=== PATIENT | female | born 1960 | race Caucasian/White ===

== ENCOUNTER 2023-05-03 20:55 | Inpatient (IN) | payer MEDICARE, SELFPAY ==
[2023-05-03 21:39] VITALS: BP 161/60; PULSE 120; RESP 18; TEMP 36.2; O2SAT 97
[2023-05-03 22:04] VITALS: BMI 25.0
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
[2023-05-04 07:00] VITALS: BMI 25.6
[2023-05-04 09:47] VITALS: RESP 18
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
[2023-05-04] MEDS: OLANZapine 10 MG TABLET PO ×2 (14:20→20:15)
[2023-05-04 18:00] VITALS: BP 136/60; PULSE 78; RESP 18; TEMP 36.7; O2SAT 95
[2023-05-04] MEDS: Divalproex Sodium ER 500 MG TAB.ER.24H 1000 MG PO (20:15)
--- NOTE | 2023-05-05 03:15 | PC.NURSE ---
patient appears to be sleeping tonight. she has had 3 brief periods of being out of bed thus far tonight. patient remains confused and disorganized. the patient asked this copywriter does your vagina want my finger I said no because I like boys to which she said well what if my finger was a boy I again said no because I'm . with that the patient dropped the subject. later she apologized to this copywriter for asking me those questions. continue to monitor for safety, continue Plan of Care.
[2023-05-05] MEDS: OLANZapine 10 MG TABLET PO ×3 (09:15→21:31)
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
[2023-05-05 21:00] VITALS: PULSE 89; RESP 18; TEMP 36.4; O2SAT 94
[2023-05-05] MEDS: Divalproex Sodium ER 500 MG TAB.ER.24H 1000 MG PO (21:31)
[2023-05-06 07:40] VITALS: BP 120/57; PULSE 71; RESP 14; TEMP 36.2; O2SAT 95
[2023-05-06] MEDS: OLANZapine 10 MG TABLET PO ×2 (09:17→15:11)
--- NOTE | 2023-05-06 13:15 | P.PNPSI_ITS ---
Subjective Subjective Date of Service: 05/06/23 Reason For Visit: Schizoaffective Disorder Subjective Notes: Conditional Voluntary Interim History: The nursing staff reported the patient had been compliant with treatment. She was easily agitated and started screaming the group attend later on she was able to put it up together. On interview the patient was delusional, rambling disorganized at times. Mental Status Exam Mental Status Exam Patient Appearance: Appropriate Patient Orientation: Person Level of Consciousness: Alert Patient Behavior: Guarded and Cooperative Mood Description: Withdrawn Affect Description: Labile Patient Cognition Impaired: Yes Ability to Follow Directions: Fair Speech Pattern: Clear Hallucinations: Auditory Delusions: Paranoid Ideation and Ideas of Reference Thought Process: Racing, Illogical, Distracted and Slowed Thinking Thought Content: positive for Disoriented and positive for Thought Blocking Judgement: Poor Diagnostics Vital Signs (24Hr): Vital Signs - 24 hr 05/05/23 21:00 05/06/23 07:40 Temperature 97.6 F 97.2 F Pulse Rate 89 71 Respiratory Rate 18 14 Blood Pressure 120/57 L Pulse Oximetry 94 95 Oxygen Delivery Method Room Air BMI result Body Mass Index 25.6 Medications Medications Current Medications Acetaminophen (Acetaminophen 325 Mg Tablet) 650 mg PO Q6H PRN PRN Reason: Headache/Pain Mild Scale (1-3) Al Hydroxide/Mg Hydroxide (Magnesium Hydrox/Alum Hydrox 30 Ml Oral.Susp) 30 ml PO Q6H PRN PRN Reason: Heartburn/Nausea Divalproex Sodium (Divalproex Sodium Er 500 Mg Tab.Er.24h) 1,000 mg PO BEDTIME [facility] Last Admin: 05/05/23 21:31 Dose: 1,000 mg Magnesium Hydroxide (Milk Of Magnesia 30 Ml Oral.Susp) 30 ml PO DAILY PRN PRN Reason: Constipation Nicotine Polacrilex (Nicotine Polacrilex 2 Mg Gum) 4 mg BUCCAL Q2H PRN PRN Reason: Nicotine Cravings Olanzapine (Olanzapine 10 Mg Tablet) 10 mg PO TID [facility] Last Admin: 05/06/23 09:17 Dose: 10 mg Trazodone HCl (Trazodone Hcl 25 Mg Halftab) 25 mg PO BEDTIME MRX1 PRN PRN Reason: Insomnia Allergies Allergies Allergy/AdvReac Type Severity Reaction Status Date / Time Penicillins Allergy Unknown Unknown Verified 05/03/23 22:31 Assessment & Plan Assessment & Plan (1) Bipolar I disorder with nakia: Status: Acute Code(s): F31.10 - Bipolar disorder, current episode manic without psychotic features, unspecified Plan 05/04: continue zyprexa 10 TID. add VPA 1000 mg QHS. 05/05: continue current mgmt. per pt's brother, she is unable to return to her apartment and she has been off meds for about 3 years. 05/06 continue same treatment adding Zydis p.r.n. for agitation Reason for continued inpatient stay Substantial Risk for: inability to function, rapid decompensation and med/psych decompensation Time Spent With Patient Time: Total time managing care of this patient today __20__ minutes.
[2023-05-06 20:15] VITALS: BP 133/64; PULSE 118; RESP 18; TEMP 36.4; O2SAT 96
[2023-05-07 07:40] VITALS: BP 115/57; PULSE 75; RESP 16; TEMP 36.3; O2SAT 95
[2023-05-07] MEDS: OLANZapine 10 MG TABLET PO ×3 (08:14→23:59)
--- NOTE | 2023-05-07 13:46 | P.PNPSI_ITS ---
Subjective Subjective Date of Service: 05/07/23 Reason For Visit: Schizoaffective Disorder Subjective Notes: Conditional Voluntary Interim History: The nursing staff reported the patient had poor sleep last night she refused medications in the evening. She had been seen screaming at times but then later apologizing. The staff has noticed that she is very apraxic unable to do a cup of tea and needed redirection. On interview the patient denies new symptoms she states that she is doing better. Mental Status Exam Mental Status Exam Patient Appearance: Appropriate Patient Orientation: Person and Situation Level of Consciousness: Awake Patient Behavior: Guarded and Passive Mood Description: Withdrawn Affect Description: Constricted Patient Cognition Impaired: Yes Ability to Follow Directions: Good Speech Pattern: Clear Hallucinations: None Delusions: Paranoid Ideation and Ideas of Reference Thought Process: Distracted and Slowed Thinking Thought Content: positive for [place], positive for Loose Associations and positive for Thought Blocking Judgement: Poor Diagnostics Vital Signs (24Hr): Vital Signs - 24 hr 05/06/23 20:15 05/07/23 07:40 Temperature 97.5 F 97.3 F Pulse Rate 118 H 75 Respiratory Rate 18 16 Blood Pressure 133/64 115/57 L Pulse Oximetry 96 95 Oxygen Delivery Method Room Air Room Air BMI result Body Mass Index 25.6 Medications Medications Current Medications Acetaminophen (Acetaminophen 325 Mg Tablet) 650 mg PO Q6H PRN PRN Reason: Headache/Pain Mild Scale (1-3) Al Hydroxide/Mg Hydroxide (Magnesium Hydrox/Alum Hydrox 30 Ml Oral.Susp) 30 ml PO Q6H PRN PRN Reason: Heartburn/Nausea Divalproex Sodium (Divalproex Sodium Er 500 Mg Tab.Er.24h) 1,000 mg PO BEDTIME [facility] Last Admin: 05/06/23 23:28 Dose: Not Given Magnesium Hydroxide (Milk Of Magnesia 30 Ml Oral.Susp) 30 ml PO DAILY PRN PRN Reason: Constipation Nicotine Polacrilex (Nicotine Polacrilex 2 Mg Gum) 4 mg BUCCAL Q2H PRN PRN Reason: Nicotine Cravings Olanzapine (Olanzapine 10 Mg Tablet) 10 mg PO TID [facility] Last Admin: 05/07/23 08:14 Dose: 10 mg Olanzapine (Olanzapine Odt 10 Mg Tab.Rapdis) 10 mg TRANSLINGU BID PRN PRN Reason: agitation Trazodone HCl (Trazodone Hcl 25 Mg Halftab) 25 mg PO BEDTIME MRX1 PRN PRN Reason: Insomnia Allergies Allergies Allergy/AdvReac Type Severity Reaction Status Date / Time Penicillins Allergy Unknown Unknown Verified 05/03/23 22:31 Assessment & Plan Assessment & Plan (1) Bipolar I disorder with nakia: Status: Acute Code(s): F31.10 - Bipolar disorder, current episode manic without psychotic features, unspecified Plan 05/04: continue zyprexa 10 TID. add VPA 1000 mg QHS. 05/05: continue current mgmt. per pt's brother, she is unable to return to her apartment and she has been off meds for about 3 years. 05/06 continue same treatment adding Zydis p.r.n. for agitation. 05/07 continue same treatment Reason for continued inpatient stay Substantial Risk for: inability to function, rapid decompensation and med/psych decompensation Time Spent With Patient Time: Total time managing care of this patient today __20__ minutes.
[2023-05-07 21:03] VITALS: RESP 16
[2023-05-08] MEDS: Divalproex Sodium ER 500 MG TAB.ER.24H 1000 MG PO
[2023-05-08] MEDS: OLANZapine 10 MG TABLET PO ×2 (08:28→15:51)
[2023-05-08 08:29] VITALS: BP 128/61; PULSE 102; RESP 18; TEMP 36.7; O2SAT 95
--- NOTE | 2023-05-08 11:57 | HO.PSYCHPN ---
Subjective Subjective Date of Service: 05/08/23 Reason For Visit: Schizoaffective Disorder Subjective Notes: Conditional Voluntary Interim History: Reviewed with . Guarded, brief. Pt stated, I'm okay. I don't need anything. I'm trying to sleep . denies SI. Medication Compliance: Yes Attending Groups: No Review of Systems Constitutional: Reports as per HPI Eyes: Reports as per HPI Reports as per HPI Cardiovascular: Reports as per HPI Respiratory: Reports as per HPI Gastrointestinal: Reports as per HPI Genitourinary: Reports as per HPI Musculoskeletal: Reports as per HPI Skin/Breast: Reports as per HPI Reports as per HPI Psychiatric: Reports as per HPI Endocrine: Reports as per HPI Hematologic/Lymphatic: Reports as per HPI Allergic/Immunologic: Reports as per HPI Mental Status Exam Mental Status Exam Narrative: Pt behavior is guarded and calm; dressed in casual attire; mood is described as okay ; Speech is normal rate, volume and not pressured; thought process is organized; denies any SI. Diagnostics Vital Signs (24Hr): Vital Signs - 24 hr 05/07/23 21:03 05/08/23 08:29 Temperature 98.0 F Pulse Rate 102 H Respiratory Rate 16 18 Blood Pressure 128/61 Pulse Oximetry 95 Oxygen Delivery Method Room Air BMI result Body Mass Index 25.6 Medications Medications Current Medications Acetaminophen (Acetaminophen 325 Mg Tablet) 650 mg PO Q6H PRN PRN Reason: Headache/Pain Mild Scale (1-3) Al Hydroxide/Mg Hydroxide (Magnesium Hydrox/Alum Hydrox 30 Ml Oral.Susp) 30 ml PO Q6H PRN PRN Reason: Heartburn/Nausea Divalproex Sodium (Divalproex Sodium Er 500 Mg Tab.Er.24h) 1,000 mg PO BEDTIME [facility] Last Admin: 05/08/23 00:00 Dose: 1,000 mg Magnesium Hydroxide (Milk Of Magnesia 30 Ml Oral.Susp) 30 ml PO DAILY PRN PRN Reason: Constipation Nicotine Polacrilex (Nicotine Polacrilex 2 Mg Gum) 4 mg BUCCAL Q2H PRN PRN Reason: Nicotine Cravings Olanzapine (Olanzapine 10 Mg Tablet) 10 mg PO TID [facility] Last Admin: 05/08/23 08:28 Dose: 10 mg Olanzapine (Olanzapine Odt 10 Mg Tab.Rapdis) 10 mg TRANSLINGU BID PRN PRN Reason: agitation Trazodone HCl (Trazodone Hcl 25 Mg Halftab) 25 mg PO BEDTIME MRX1 PRN PRN Reason: Insomnia Allergies Allergies Allergy/AdvReac Type Severity Reaction Status Date / Time Penicillins Allergy Unknown Unknown Verified 05/03/23 22:31 Assessment & Plan Assessment & Plan (1) Bipolar I disorder with nakia: Status: Acute Code(s): F31.10 - Bipolar disorder, current episode manic without psychotic features, unspecified Plan 05/04: continue zyprexa 10 TID. add VPA 1000 mg QHS. 05/05: continue current mgmt. per pt's brother, she is unable to return to her apartment and she has been off meds for about 3 years. 05/06 continue same treatment adding Zydis p.r.n. for agitation. 05/07 continue same treatment 05/08: Guarded, brief. Pt stated, I'm okay. I don't need anything. I'm trying to sleep . denies SI. Continue current tx plan. Patient educated on: medication risk/benefits Informed Consent: understands Reason for continued inpatient stay Substantial Risk for: med/psych decompensation Time Spent With Patient Time: Total time managing care of this patient today _15___ minutes.
[2023-05-08 22:40] VITALS: RESP 16
[2023-05-09] MEDS: OLANZapine 10 MG TABLET PO ×4 (00:07→20:49)
[2023-05-09] MEDS: Divalproex Sodium ER 500 MG TAB.ER.24H 1000 MG PO ×2 (00:07→20:49)
[2023-05-09] MEDS: traZODone HCL 25 MG HALFTAB PO (00:07)
[2023-05-09 09:01] VITALS: RESP 18
--- NOTE | 2023-05-09 13:31 | HO.PSYCHPN ---
Subjective Subjective Date of Service: 05/09/23 Reason For Visit: Schizoaffective Disorder Subjective Notes: Conditional Voluntary Interim History: Reviewed with . Guarded, irritable. Keeping to self. Pt kept 1:1 brief. Met with pt in unit office. Pt reports feeling fine today; pt stated, I'm fine. I'm feeling better. Why do I have to stay here? . When T/W attempted to discuss the process of being discharged pt stated, Never mind. I don't want to talk to you bitch! , then got up and left office. Medication Compliance: Yes Attending Groups: No Review of Systems Constitutional: Reports as per HPI Eyes: Reports as per HPI Reports as per HPI Cardiovascular: Reports as per HPI Respiratory: Reports as per HPI Gastrointestinal: Reports as per HPI Genitourinary: Reports as per HPI Musculoskeletal: Reports as per HPI Skin/Breast: Reports as per HPI Reports as per HPI Psychiatric: Reports as per HPI Endocrine: Reports as per HPI Hematologic/Lymphatic: Reports as per HPI Allergic/Immunologic: Reports as per HPI Mental Status Exam Mental Status Exam Narrative: Pt is behavior is irritable, guarded; dressed in casual attire; mood is described as fine ; eye contact appropriate; Speech is normal rate, volume and prosody and not pressured. Diagnostics Vital Signs (24Hr): Vital Signs - 24 hr 05/08/23 22:40 05/09/23 09:01 Respiratory Rate 16 18 BMI result Body Mass Index 25.6 Medications Medications Current Medications Acetaminophen (Acetaminophen 325 Mg Tablet) 650 mg PO Q6H PRN PRN Reason: Headache/Pain Mild Scale (1-3) Al Hydroxide/Mg Hydroxide (Magnesium Hydrox/Alum Hydrox 30 Ml Oral.Susp) 30 ml PO Q6H PRN PRN Reason: Heartburn/Nausea Divalproex Sodium (Divalproex Sodium Er 500 Mg Tab.Er.24h) 1,000 mg PO BEDTIME [facility] Last Admin: 05/09/23 00:07 Dose: 1,000 mg Magnesium Hydroxide (Milk Of Magnesia 30 Ml Oral.Susp) 30 ml PO DAILY PRN PRN Reason: Constipation Nicotine Polacrilex (Nicotine Polacrilex 2 Mg Gum) 4 mg BUCCAL Q2H PRN PRN Reason: Nicotine Cravings Olanzapine (Olanzapine 10 Mg Tablet) 10 mg PO TID [facility] Last Admin: 05/09/23 08:46 Dose: 10 mg Olanzapine (Olanzapine Odt 10 Mg Tab.Rapdis) 10 mg TRANSLINGU BID PRN PRN Reason: agitation Trazodone HCl (Trazodone Hcl 25 Mg Halftab) 25 mg PO BEDTIME MRX1 PRN PRN Reason: Insomnia Last Admin: 05/09/23 00:07 Dose: 25 mg Allergies Allergies Allergy/AdvReac Type Severity Reaction Status Date / Time Penicillins Allergy Unknown Unknown Verified 05/03/23 22:31 Assessment & Plan Assessment & Plan (1) Bipolar I disorder with nakia: Status: Acute Code(s): F31.10 - Bipolar disorder, current episode manic without psychotic features, unspecified Plan 05/04: continue zyprexa 10 TID. add VPA 1000 mg QHS. 05/05: continue current mgmt. per pt's brother, she is unable to return to her apartment and she has been off meds for about 3 years. 05/06 continue same treatment adding Zydis p.r.n. for agitation. 05/07 continue same treatment 05/08: Guarded, brief. Pt stated, I'm okay. I don't need anything. I'm trying to sleep . denies SI. Continue current tx plan. 05/09: Continue current tx plan. Patient educated on: diagnosis and medication risk/benefits Informed Consent: understands and further education needed Reason for continued inpatient stay Substantial Risk for: med/psych decompensation Time Spent With Patient Time: Total time managing care of this patient today _15___ minutes.
[2023-05-09 21:00] VITALS: RESP 16
[2023-05-10] MEDS: OLANZapine 10 MG TABLET PO ×3 (09:26→20:36)
--- NOTE | 2023-05-10 16:15 | HO.PSYCHPN ---
Subjective Subjective Date of Service: 05/10/23 Reason For Visit: Schizoaffective Disorder Interim History: irritable, labile, easily overwhelmed and frustrated. paranoid delusions about her brother moisés's meddling and power/wealth to affect her life. states she doesn't want him involved at all. informed of plan to check labs tonight. Mental Status Exam Mental Status Exam Narrative: adequately dressed in street clothes. adequately groomed. cooperative. no PMA/PMR. speech nml rate and loudness, amount. thoughts more organized, but delusional. affect flexible, hyper-intense, mod-labile. no SI/HI/AVH expressed. Diagnostics Vital Signs (24Hr): Vital Signs - 24 hr 05/09/23 21:00 Respiratory Rate 16 BMI result Body Mass Index 25.6 Medications Medications Current Medications Acetaminophen (Acetaminophen 325 Mg Tablet) 650 mg PO Q6H PRN PRN Reason: Headache/Pain Mild Scale (1-3) Al Hydroxide/Mg Hydroxide (Magnesium Hydrox/Alum Hydrox 30 Ml Oral.Susp) 30 ml PO Q6H PRN PRN Reason: Heartburn/Nausea Divalproex Sodium (Divalproex Sodium Er 500 Mg Tab.Er.24h) 1,000 mg PO BEDTIME [facility] Last Admin: 05/09/23 20:49 Dose: 1,000 mg Magnesium Hydroxide (Milk Of Magnesia 30 Ml Oral.Susp) 30 ml PO DAILY PRN PRN Reason: Constipation Nicotine Polacrilex (Nicotine Polacrilex 2 Mg Gum) 4 mg BUCCAL Q2H PRN PRN Reason: Nicotine Cravings Olanzapine (Olanzapine 10 Mg Tablet) 10 mg PO TID [facility] Last Admin: 05/10/23 15:20 Dose: 10 mg Olanzapine (Olanzapine Odt 10 Mg Tab.Rapdis) 10 mg TRANSLINGU BID PRN PRN Reason: agitation Psyllium Hydrophilic Mucilloid (Psyllium Seed 3.7 Gm Packet) 3.7 gm PO BEDTIME [facility] Trazodone HCl (Trazodone Hcl 25 Mg Halftab) 25 mg PO BEDTIME MRX1 PRN PRN Reason: Insomnia Last Admin: 05/09/23 00:07 Dose: 25 mg Allergies Allergies Allergy/AdvReac Type Severity Reaction Status Date / Time Penicillins Allergy Unknown Unknown Verified 05/03/23 22:31 Assessment & Plan Assessment & Plan (1) Bipolar I disorder with nakia: Status: Acute Code(s): F31.10 - Bipolar disorder, current episode manic without psychotic features, unspecified Plan 05/04: continue zyprexa 10 TID. add VPA 1000 mg QHS. 05/05: continue current mgmt. per pt's brother, she is unable to return to her apartment and she has been off meds for about 3 years. 05/06 continue same treatment adding Zydis p.r.n. for agitation. 05/07 continue same treatment 05/08: Guarded, brief. Pt stated, I'm okay. I don't need anything. I'm trying to sleep . denies SI. Continue current tx plan. 05/09: Continue current tx plan. 05/10: less manic than at admission, remains psychotic. check VPA level and labs tonight. Reason for continued inpatient stay Substantial Risk for: inability to function and rapid decompensation Time Spent With Patient Time: Total time managing care of this patient today __35__ minutes.
[2023-05-10] MEDS: Psyllium seed 3.7 GM PACKET PO (20:36)
--- NOTE | 2023-05-10 20:41 | PC.NURSE ---
Nani refused to do bloodwork today. Patient reported I don't give blood, it is against my rastafarian . Patient stated that because she will need to do bloodwork, she will no longer be taking the Depakote medication.
[2023-05-11 07:00] VITALS: BMI 26.5
[2023-05-11] MEDS: OLANZapine 10 MG TABLET PO ×3 (08:56→20:56)
[2023-05-11] MEDS: Divalproex Sodium ER 500 MG TAB.ER.24H 1000 MG PO ×2 (12:23→20:56)
--- NOTE | 2023-05-11 16:21 | HO.PSYCHPN ---
Subjective Subjective Date of Service: 05/11/23 Reason For Visit: Schizoaffective Disorder Interim History: concerned about 'relationships. concerned about her older brother. also, these people that i got involved with in [place] are scary. marlee sebastian. discuss need for mood stabilizer and attendant blood work. pt states she will take VPA, so ordered for now. will plan to draw labs tomorrow night. Mental Status Exam Mental Status Exam Narrative: adequately dressed in street clothes. adequately groomed. cooperative. no PMA/PMR. speech nml rate and loudness, amount. thoughts more organized, but delusional. affect flexible, hyper-intense, non-labile. no SI/HI/AVH expressed. Diagnostics Vital Signs (24Hr): BMI result Body Mass Index 26.5 Medications Medications Current Medications Acetaminophen (Acetaminophen 325 Mg Tablet) 650 mg PO Q6H PRN PRN Reason: Headache/Pain Mild Scale (1-3) Al Hydroxide/Mg Hydroxide (Magnesium Hydrox/Alum Hydrox 30 Ml Oral.Susp) 30 ml PO Q6H PRN PRN Reason: Heartburn/Nausea Divalproex Sodium (Divalproex Sodium Er 500 Mg Tab.Er.24h) 1,000 mg PO BEDTIME [facility] Last Admin: 05/10/23 20:37 Dose: Not Given Magnesium Hydroxide (Milk Of Magnesia 30 Ml Oral.Susp) 30 ml PO DAILY PRN PRN Reason: Constipation Nicotine Polacrilex (Nicotine Polacrilex 2 Mg Gum) 4 mg BUCCAL Q2H PRN PRN Reason: Nicotine Cravings Olanzapine (Olanzapine 10 Mg Tablet) 10 mg PO TID [facility] Last Admin: 05/11/23 16:00 Dose: 10 mg Olanzapine (Olanzapine Odt 10 Mg Tab.Rapdis) 10 mg TRANSLINGU BID PRN PRN Reason: agitation Psyllium Hydrophilic Mucilloid (Psyllium Seed 3.7 Gm Packet) 3.7 gm PO BEDTIME [facility] Last Admin: 05/10/23 20:36 Dose: 3.7 gm Senna (Sennosides 8.6 Mg Tablet) 17.2 mg PO Q24H PRN PRN Reason: constipation Trazodone HCl (Trazodone Hcl 25 Mg Halftab) 25 mg PO BEDTIME MRX1 PRN PRN Reason: Insomnia Last Admin: 05/09/23 00:07 Dose: 25 mg Allergies Allergies Allergy/AdvReac Type Severity Reaction Status Date / Time Penicillins Allergy Unknown Unknown Verified 05/03/23 22:31 Assessment & Plan Assessment & Plan (1) Bipolar I disorder with nakia: Status: Acute Code(s): F31.10 - Bipolar disorder, current episode manic without psychotic features, unspecified Plan 05/04: continue zyprexa 10 TID. add VPA 1000 mg QHS. 05/05: continue current mgmt. per pt's brother, she is unable to return to her apartment and she has been off meds for about 3 years. 05/06 continue same treatment adding Zydis p.r.n. for agitation. 05/07 continue same treatment 05/08: Guarded, brief. Pt stated, I'm okay. I don't need anything. I'm trying to sleep . denies SI. Continue current tx plan. 05/09: Continue current tx plan. 05/10: less manic than at admission, remains psychotic. check VPA level and labs tonight. 05/11: pt refused labs last night and also VPA. today states she will take meds after the importance is explained to her. seems desirous of discharge. remains delusional, less labile. Reason for continued inpatient stay Substantial Risk for: inability to function and rapid decompensation Time Spent With Patient Time: Total time managing care of this patient today __25__ minutes.
[2023-05-11 19:50] VITALS: RESP 18
[2023-05-11] MEDS: Psyllium seed 3.7 GM PACKET PO (20:56)
[2023-05-12 06:00] VITALS: BP 127/61; PULSE 99; RESP 16; TEMP 36.1; O2SAT 96
[2023-05-12] MEDS: OLANZapine 10 MG TABLET PO ×2 (09:15→16:14)
[2023-05-12] MEDS: Milk of Magnesia 30 ML ORAL.SUSP PO (10:37)
[2023-05-12] MEDS: bisacodyL 10 MG SUPP.RECT PR (11:33)
--- NOTE | 2023-05-12 13:08 | HO.PSYCHPN ---
Subjective Subjective Date of Service: 05/12/23 Reason For Visit: Schizoaffective Disorder Interim History: appears more tired, irritable today. not forthcoming, perhaps disorganized. reminded to allow labs tonight. excuses herself from meeting. per staff, perseverating on bowel function today, asking for suppositories. not attending groups, anxiety 8. labile, intermittently confused. taking meds. broken sleep, about 5 hours. Mental Status Exam Mental Status Exam Narrative: adequately dressed in street clothes. disheveled. reluctantly cooperative. no PMA/PMR. speech nml rate and loudness, decr amount. paucity of thought versus paranoia or disorganization. affect constricted, hypo-intense, non-labile. no SI/HI/AVH expressed. Diagnostics Vital Signs (24Hr): Vital Signs - 24 hr 05/11/23 19:50 05/12/23 06:00 Temperature 97.0 F Pulse Rate 99 Respiratory Rate 18 16 Blood Pressure 127/61 Pulse Oximetry 96 Oxygen Delivery Method Room Air BMI result Body Mass Index 26.5 Medications Medications Current Medications Acetaminophen (Acetaminophen 325 Mg Tablet) 650 mg PO Q6H PRN PRN Reason: Headache/Pain Mild Scale (1-3) Al Hydroxide/Mg Hydroxide (Magnesium Hydrox/Alum Hydrox 30 Ml Oral.Susp) 30 ml PO Q6H PRN PRN Reason: Heartburn/Nausea Divalproex Sodium (Divalproex Sodium Er 500 Mg Tab.Er.24h) 1,000 mg PO BEDTIME [facility] Last Admin: 05/11/23 20:56 Dose: 1,000 mg Magnesium Hydroxide (Milk Of Magnesia 30 Ml Oral.Susp) 30 ml PO DAILY PRN PRN Reason: Constipation Last Admin: 05/12/23 10:37 Dose: 30 ml Nicotine Polacrilex (Nicotine Polacrilex 2 Mg Gum) 4 mg BUCCAL Q2H PRN PRN Reason: Nicotine Cravings Olanzapine (Olanzapine 10 Mg Tablet) 10 mg PO TID [facility] Last Admin: 05/12/23 09:15 Dose: 10 mg Olanzapine (Olanzapine Odt 10 Mg Tab.Rapdis) 10 mg TRANSLINGU BID PRN PRN Reason: agitation Psyllium Hydrophilic Mucilloid (Psyllium Seed 3.7 Gm Packet) 3.7 gm PO BEDTIME [facility] Last Admin: 05/11/23 20:56 Dose: 3.7 gm Senna (Sennosides 8.6 Mg Tablet) 17.2 mg PO Q24H PRN PRN Reason: constipation Senna (Senna [place] Extract Oral Syrup 15 Ml Syrup) 15 ml PO BEDTIME PRN PRN Reason: constipation Trazodone HCl (Trazodone Hcl 25 Mg Halftab) 25 mg PO BEDTIME MRX1 PRN PRN Reason: Insomnia Last Admin: 05/09/23 00:07 Dose: 25 mg Allergies Allergies Allergy/AdvReac Type Severity Reaction Status Date / Time Penicillins Allergy Unknown Unknown Verified 05/03/23 22:31 Assessment & Plan Assessment & Plan (1) Bipolar I disorder with nakia: Status: Acute Code(s): F31.10 - Bipolar disorder, current episode manic without psychotic features, unspecified Plan 05/04: continue zyprexa 10 TID. add VPA 1000 mg QHS. 05/05: continue current mgmt. per pt's brother, she is unable to return to her apartment and she has been off meds for about 3 years. 05/06 continue same treatment adding Zydis p.r.n. for agitation. 05/07 continue same treatment 05/08: Guarded, brief. Pt stated, I'm okay. I don't need anything. I'm trying to sleep . denies SI. Continue current tx plan. 05/09: Continue current tx plan. 05/10: less manic than at admission, remains psychotic. check VPA level and labs tonight. 05/11: pt refused labs last night and also VPA. today states she will take meds after the importance is explained to her. seems desirous of discharge. remains delusional, less labile. 05/12: check labs tonight. concern pt is developing a delirium, ammonia level would be helpful. poorer hygiene, more withdrawn, dearth of thoughts. T/C use of tegretol versus lithium if ammonia level proves elevated. Reason for continued inpatient stay Substantial Risk for: inability to function and rapid decompensation Time Spent With Patient Time: Total time managing care of this patient today __25__ minutes.
[2023-05-12 19:59] VITALS: RESP 18
--- NOTE | 2023-05-13 01:31 | PC.NURSE ---
Pt again refused labs this evening to rule out increasing confusion, delirium. Pt was in her room, when this RN approached her to ask about her taking her night meds. Pt stood up and walked off her bed and out of the room stating, I'm not taking any of these medications and you're not taking any bloodwork from me ! manager call center doctor MATTHEW was notified.
[2023-05-13] MEDS: OLANZapine ODT 10 MG TAB.RAPDIS TRANSLINGU (04:59)
[2023-05-13 08:20] VITALS: BP 120/77; PULSE 98; RESP 18; TEMP 36.2; O2SAT 96
[2023-05-13] MEDS: OLANZapine 10 MG TABLET PO ×2 (08:45→15:09)
--- NOTE | 2023-05-13 12:07 | P.PNPSI_ITS ---
Subjective Subjective Date of Service: 05/13/23 Reason For Visit: Schizoaffective Disorder Subjective Notes: Conditional Voluntary Interim History: Pt slept all night. She denies SI/HI. She reports she awaiting her to return call so she can return back. She is visible on the unit social with select peers. No behavioral concerns. no overt delusional content noted or reported. Review of Systems Review of Systems refused Constitutional: Reports as per HPI Eyes: Reports as per HPI Reports as per HPI Cardiovascular: Reports as per HPI Respiratory: Reports as per HPI Gastrointestinal: Reports as per HPI Musculoskeletal: Reports as per HPI Skin/Breast: Reports as per HPI Reports as per HPI Psychiatric: Reports as per HPI Endocrine: Reports as per HPI Hematologic/Lymphatic: Reports as per HPI Allergic/Immunologic: Reports as per HPI Mental Status Exam Mental Status Exam Narrative: adequately dressed in street clothes. disheveled. reluctantly cooperative. no PMA/PMR. speech nml rate and loudness, decr amount. paucity of thought versus paranoia or disorganization. affect constricted, hypo-intense, non-labile. no SI/HI/AVH expressed. Diagnostics Vital Signs (24Hr): Vital Signs - 24 hr 05/12/23 19:59 05/13/23 08:20 Temperature 97.2 F Pulse Rate 98 Respiratory Rate 18 18 Blood Pressure 120/77 Pulse Oximetry 96 Oxygen Delivery Method Room Air BMI result Body Mass Index 26.5 Medications Medications Current Medications Acetaminophen (Acetaminophen 325 Mg Tablet) 650 mg PO Q6H PRN PRN Reason: Headache/Pain Mild Scale (1-3) Al Hydroxide/Mg Hydroxide (Magnesium Hydrox/Alum Hydrox 30 Ml Oral.Susp) 30 ml PO Q6H PRN PRN Reason: Heartburn/Nausea Divalproex Sodium (Divalproex Sodium Er 500 Mg Tab.Er.24h) 1,000 mg PO BEDTIME [facility] Last Admin: 05/12/23 22:27 Dose: Not Given Magnesium Hydroxide (Milk Of Magnesia 30 Ml Oral.Susp) 30 ml PO DAILY PRN PRN Reason: Constipation Last Admin: 05/12/23 10:37 Dose: 30 ml Nicotine Polacrilex (Nicotine Polacrilex 2 Mg Gum) 4 mg BUCCAL Q2H PRN PRN Reason: Nicotine Cravings Olanzapine (Olanzapine 10 Mg Tablet) 10 mg PO TID [facility] Last Admin: 05/13/23 08:45 Dose: 10 mg Olanzapine (Olanzapine Odt 10 Mg Tab.Rapdis) 10 mg TRANSLINGU BID PRN PRN Reason: agitation Last Admin: 05/13/23 04:59 Dose: 10 mg Psyllium Hydrophilic Mucilloid (Psyllium Seed 3.7 Gm Packet) 3.7 gm PO BEDTIME [facility] Last Admin: 05/12/23 22:28 Dose: Not Given Senna (Sennosides 8.6 Mg Tablet) 17.2 mg PO Q24H PRN PRN Reason: constipation Senna (Senna [place] Extract Oral Syrup 15 Ml Syrup) 15 ml PO BEDTIME PRN PRN Reason: constipation Trazodone HCl (Trazodone Hcl 25 Mg Halftab) 25 mg PO BEDTIME MRX1 PRN PRN Reason: Insomnia Last Admin: 05/09/23 00:07 Dose: 25 mg Allergies Allergies Allergy/AdvReac Type Severity Reaction Status Date / Time Penicillins Allergy Unknown Unknown Verified 05/03/23 22:31 Assessment & Plan Assessment & Plan (1) Bipolar I disorder with nakia: Status: Acute Code(s): F31.10 - Bipolar disorder, current episode manic without psychotic features, unspecified Plan 05/04: continue zyprexa 10 TID. add VPA 1000 mg QHS. 05/05: continue current mgmt. per pt's brother, she is unable to return to her apartment and she has been off meds for about 3 years. 05/06 continue same treatment adding Zydis p.r.n. for agitation. 05/07 continue same treatment 05/08: Guarded, brief. Pt stated, I'm okay. I don't need anything. I'm trying to sleep . denies SI. Continue current tx plan. 05/09: Continue current tx plan. 05/10: less manic than at admission, remains psychotic. check VPA level and labs tonight. 05/11: pt refused labs last night and also VPA. today states she will take meds after the importance is explained to her. seems desirous of discharge. remains delusional, less labile. 05/12: check labs tonight. concern pt is developing a delirium, ammonia level would be helpful. poorer hygiene, more withdrawn, dearth of thoughts. T/C use of tegretol versus lithium if ammonia level proves elevated. 05/13 continue tx. Reason for continued inpatient stay Substantial Risk for: inability to function Time Spent With Patient Time: Total time managing care of this patient today ____ minutes.
[2023-05-13 18:00] VITALS: RESP 20
[2023-05-14] MEDS: OLANZapine 10 MG TABLET PO ×2 (08:42→15:24)
[2023-05-14] MEDS: Sennosides 8.6 MG TABLET 17.2 MG PO (09:39)
--- NOTE | 2023-05-14 14:32 | HO.PSYCHPN ---
Subjective Subjective Date of Service: 05/14/23 Reason For Visit: Schizoaffective Disorder Subjective Notes: Conditional Voluntary Interim History: Pt slept all night. She continues to denied SI/HI. She reports she awaiting her to return call so she can return back. She is visible on the unit social with select peers. No behavioral concerns. no overt delusional content noted or reported. Medication Compliance: Yes Review of Systems Review of Systems refused Constitutional: Reports as per HPI Eyes: Reports as per HPI Reports as per HPI Cardiovascular: Reports as per HPI Respiratory: Reports as per HPI Gastrointestinal: Reports as per HPI Musculoskeletal: Reports as per HPI Skin/Breast: Reports as per HPI Reports as per HPI Psychiatric: Reports as per HPI Endocrine: Reports as per HPI Hematologic/Lymphatic: Reports as per HPI Allergic/Immunologic: Reports as per HPI Mental Status Exam Mental Status Exam Narrative: adequately dressed in street clothes. disheveled. reluctantly cooperative. no PMA/PMR. speech nml rate and loudness, decr amount. paucity of thought versus paranoia or disorganization. affect constricted, hypo-intense, non-labile. no SI/HI/AVH expressed. Diagnostics Vital Signs (24Hr): Vital Signs - 24 hr 05/13/23 18:00 Respiratory Rate 20 BMI result Body Mass Index 26.5 Medications Medications Current Medications Acetaminophen (Acetaminophen 325 Mg Tablet) 650 mg PO Q6H PRN PRN Reason: Headache/Pain Mild Scale (1-3) Al Hydroxide/Mg Hydroxide (Magnesium Hydrox/Alum Hydrox 30 Ml Oral.Susp) 30 ml PO Q6H PRN PRN Reason: Heartburn/Nausea Divalproex Sodium (Divalproex Sodium Er 500 Mg Tab.Er.24h) 1,000 mg PO BEDTIME [facility] Last Admin: 05/13/23 22:21 Dose: Not Given Magnesium Hydroxide (Milk Of Magnesia 30 Ml Oral.Susp) 30 ml PO DAILY PRN PRN Reason: Constipation Last Admin: 05/12/23 10:37 Dose: 30 ml Nicotine Polacrilex (Nicotine Polacrilex 2 Mg Gum) 4 mg BUCCAL Q2H PRN PRN Reason: Nicotine Cravings Olanzapine (Olanzapine 10 Mg Tablet) 10 mg PO TID [facility] Last Admin: 05/14/23 08:42 Dose: 10 mg Olanzapine (Olanzapine Odt 10 Mg Tab.Rapdis) 10 mg TRANSLINGU BID PRN PRN Reason: agitation Last Admin: 05/13/23 04:59 Dose: 10 mg Psyllium Hydrophilic Mucilloid (Psyllium Seed 3.7 Gm Packet) 3.7 gm PO BEDTIME [facility] Last Admin: 05/13/23 22:21 Dose: Not Given Senna (Sennosides 8.6 Mg Tablet) 17.2 mg PO Q24H PRN PRN Reason: constipation Last Admin: 05/14/23 09:39 Dose: 17.2 mg Senna (Senna [place] Extract Oral Syrup 15 Ml Syrup) 15 ml PO BEDTIME PRN PRN Reason: constipation Trazodone HCl (Trazodone Hcl 25 Mg Halftab) 25 mg PO BEDTIME MRX1 PRN PRN Reason: Insomnia Last Admin: 05/09/23 00:07 Dose: 25 mg Allergies Allergies Allergy/AdvReac Type Severity Reaction Status Date / Time Penicillins Allergy Unknown Unknown Verified 05/03/23 22:31 Assessment & Plan Assessment & Plan (1) Bipolar I disorder with nakia: Status: Acute Code(s): F31.10 - Bipolar disorder, current episode manic without psychotic features, unspecified Plan 05/04: continue zyprexa 10 TID. add VPA 1000 mg QHS. 05/05: continue current mgmt. per pt's brother, she is unable to return to her apartment and she has been off meds for about 3 years. 05/06 continue same treatment adding Zydis p.r.n. for agitation. 05/07 continue same treatment 05/08: Guarded, brief. Pt stated, I'm okay. I don't need anything. I'm trying to sleep . denies SI. Continue current tx plan. 05/09: Continue current tx plan. 05/10: less manic than at admission, remains psychotic. check VPA level and labs tonight. 05/11: pt refused labs last night and also VPA. today states she will take meds after the importance is explained to her. seems desirous of discharge. remains delusional, less labile. 05/12: check labs tonight. concern pt is developing a delirium, ammonia level would be helpful. poorer hygiene, more withdrawn, dearth of thoughts. T/C use of tegretol versus lithium if ammonia level proves elevated. 05/13 continue tx. 05/14 continue tx. Reason for continued inpatient stay Substantial Risk for: inability to function Time Spent With Patient Time: Total time managing care of this patient today ____ minutes.
[2023-05-15] MEDS: OLANZapine 10 MG TABLET PO ×3 (08:22→20:58)
[2023-05-15 08:45] VITALS: BP 121/74; PULSE 88; RESP 16; TEMP 35.7; O2SAT 97
[2023-05-15] MEDS: Sennosides 8.6 MG TABLET 17.2 MG PO (12:36)
--- NOTE | 2023-05-15 14:39 | HO.PSYCHPN ---
Subjective Subjective Date of Service: 05/15/23 Reason For Visit: Schizoaffective Disorder Interim History: lying in bed, doesn't come out for interview. childish affect, eyes darting around room, little eye contact with MD. states she does not wish to speak with MD without her mother present. essentially refuses to speak with MD after. MD notes her refusal to take VPA, suggests she try lithium, indicates it will be prescribed and she is encouraged to take it. per staff, not attending groups. asking about discharge. intrusive with peers, rude to roommate. labile. refusing HS meds. has not had VPA since last . per staff services manager, pt's orientation and confusion appear to have improved since stop of VPA. Mental Status Exam Mental Status Exam Narrative: adequately dressed in street clothes. disheveled. not cooperative. PMA or fidgety fingers and and eyes darting around the room. speech nml rate and loudness, decr amount. paucity of thought versus paranoia or disorganization. affect constricted, hypo-intense, non-labile. no SI/HI/AVH expressed. Diagnostics Vital Signs (24Hr): Vital Signs - 24 hr 05/15/23 08:45 Temperature 96.3 F L Pulse Rate 88 Respiratory Rate 16 Blood Pressure 121/74 Pulse Oximetry 97 Oxygen Delivery Method Room Air BMI result Body Mass Index 26.5 Medications Medications Current Medications Acetaminophen (Acetaminophen 325 Mg Tablet) 650 mg PO Q6H PRN PRN Reason: Headache/Pain Mild Scale (1-3) Al Hydroxide/Mg Hydroxide (Magnesium Hydrox/Alum Hydrox 30 Ml Oral.Susp) 30 ml PO Q6H PRN PRN Reason: Heartburn/Nausea Magnesium Hydroxide (Milk Of Magnesia 30 Ml Oral.Susp) 30 ml PO DAILY PRN PRN Reason: Constipation Last Admin: 05/12/23 10:37 Dose: 30 ml Nicotine Polacrilex (Nicotine Polacrilex 2 Mg Gum) 4 mg BUCCAL Q2H PRN PRN Reason: Nicotine Cravings Olanzapine (Olanzapine 10 Mg Tablet) 10 mg PO TID GLENN Last Admin: 05/15/23 08:22 Dose: 10 mg Olanzapine (Olanzapine Odt 10 Mg Tab.Rapdis) 10 mg TRANSLINGU BID PRN PRN Reason: agitation Last Admin: 05/13/23 04:59 Dose: 10 mg Psyllium Hydrophilic Mucilloid (Psyllium Seed 3.7 Gm Packet) 3.7 gm PO BEDTIME GLENN Last Admin: 05/14/23 21:16 Dose: Not Given Senna (Sennosides 8.6 Mg Tablet) 17.2 mg PO Q24H PRN PRN Reason: constipation Last Admin: 05/15/23 12:36 Dose: 17.2 mg Senna (Senna [place] Extract Oral Syrup 15 Ml Syrup) 15 ml PO BEDTIME PRN PRN Reason: constipation Trazodone HCl (Trazodone Hcl 25 Mg Halftab) 25 mg PO BEDTIME MRX1 PRN PRN Reason: Insomnia Last Admin: 05/09/23 00:07 Dose: 25 mg Allergies Allergies Allergy/AdvReac Type Severity Reaction Status Date / Time Penicillins Allergy Unknown Unknown Verified 05/03/23 22:31 Assessment & Plan Assessment & Plan (1) Bipolar I disorder with nakia: Status: Acute Code(s): F31.10 - Bipolar disorder, current episode manic without psychotic features, unspecified Plan 05/04: continue zyprexa 10 TID. add VPA 1000 mg QHS. 05/05: continue current mgmt. per pt's brother, she is unable to return to her apartment and she has been off meds for about 3 years. 05/06 continue same treatment adding Zydis p.r.n. for agitation. 05/07 continue same treatment 05/08: Guarded, brief. Pt stated, I'm okay. I don't need anything. I'm trying to sleep . denies SI. Continue current tx plan. 05/09: Continue current tx plan. 05/10: less manic than at admission, remains psychotic. check VPA level and labs tonight. 05/11: pt refused labs last night and also VPA. today states she will take meds after the importance is explained to her. seems desirous of discharge. remains delusional, less labile. 05/12: check labs tonight. concern pt is developing a delirium, ammonia level would be helpful. poorer hygiene, more withdrawn, dearth of thoughts. T/C use of tegretol versus lithium if ammonia level proves elevated. 05/13 continue tx. 05/14 continue tx. 05/15: DC VPA order, start lithium. VPA may have caused delirium, which since stop of VPA last monday appears to have improved substantially. continue to encourage compliance with medication. Reason for continued inpatient stay Substantial Risk for: inability to function and rapid decompensation Time Spent With Patient Time: Total time managing care of this patient today __25__ minutes.
[2023-05-15] MEDS: Lithium Carbonate ER 450 MG TABLET.ER PO ×2 (15:40→20:58)
[2023-05-15] MEDS: Psyllium seed 3.7 GM PACKET PO (20:58)
--- NOTE | 2023-05-16 05:41 | PC.NURSE ---
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 jarrod noted on chin. reported that ''someone performed surgery on my breasts'' and showed ? inverted nipples. also reports ''my genitalia had surgery but i don't want you to look'' ''please tell the SW that I'm sorry for getting upset with him''
[2023-05-16] MEDS: Lithium Carbonate ER 450 MG TABLET.ER PO (08:50)
[2023-05-16] MEDS: OLANZapine 10 MG TABLET PO ×2 (08:51→15:44)
[2023-05-16] MEDS: OLANZapine ODT 10 MG TAB.RAPDIS TRANSLINGU (12:46)
[2023-05-16] MEDS: LORazepam 1 MG TABLET 2 MG PO (12:46)
--- NOTE | 2023-05-16 14:44 | HO.PSYCHPN ---
Subjective Subjective Date of Service: 05/16/23 Reason For Visit: Schizoaffective Disorder Interim History: calm and cooperative initially. once MD mentions opinion that pt has inadequately treated mental illness, pt gets up from table wordlessly and exits interview room, slamming door heard behind her. she later glides into interview room where MD was alone, having just finished seeing a patient, and with some intensity says she knows this editorial writer is jessica so-and-so, whjulian she dated 30 years ago in [place], and she wants to know why i am here on the unit posing as her doctor. MD assures her she is mistaken. later she is overheard screaming in the [place] for 20 seconds; she was provided medication yb staffing program manager. per staff, varied affect. +ADLs. no groups. +meds. intrusive, labile. slept about 4 hours. Mental Status Exam Mental Status Exam Narrative: adequately dressed in street clothes. disheveled. variably cooperative. no PMA/PMR. speech nml rate and loudness, decr amount. paucity of thought versus paranoia or disorganization.. paranoid delusions MD is her boyfriend from 30 years ago. affect constricted, hypo-intense, non-labile. no SI/HI/AVH expressed. Diagnostics Vital Signs (24Hr): BMI result Body Mass Index 26.5 Medications Medications Current Medications Acetaminophen (Acetaminophen 325 Mg Tablet) 650 mg PO Q6H PRN PRN Reason: Headache/Pain Mild Scale (1-3) Al Hydroxide/Mg Hydroxide (Magnesium Hydrox/Alum Hydrox 30 Ml Oral.Susp) 30 ml PO Q6H PRN PRN Reason: Heartburn/Nausea [place] Carbonate ([place] Carbonate Er 450 Mg Tablet.Er) 450 mg PO BID [facility] Last Admin: 05/16/23 08:50 Dose: 450 mg Magnesium Hydroxide (Milk Of Magnesia 30 Ml Oral.Susp) 30 ml PO DAILY PRN PRN Reason: Constipation Last Admin: 05/12/23 10:37 Dose: 30 ml Nicotine Polacrilex (Nicotine Polacrilex 2 Mg Gum) 4 mg BUCCAL Q2H PRN PRN Reason: Nicotine Cravings Olanzapine (Olanzapine 10 Mg Tablet) 10 mg PO TID [facility] Last Admin: 05/16/23 08:51 Dose: 10 mg Olanzapine (Olanzapine Odt 10 Mg Tab.Rapdis) 10 mg TRANSLINGU BID PRN PRN Reason: agitation Last Admin: 05/16/23 12:46 Dose: 10 mg Psyllium Hydrophilic Mucilloid (Psyllium Seed 3.7 Gm Packet) 3.7 gm PO BEDTIME GLENN Last Admin: 05/15/23 20:58 Dose: 3.7 gm Senna (Sennosides 8.6 Mg Tablet) 17.2 mg PO Q24H PRN PRN Reason: constipation Last Admin: 05/15/23 12:36 Dose: 17.2 mg Senna (Senna [place] Extract Oral Syrup 15 Ml Syrup) 15 ml PO BEDTIME PRN PRN Reason: constipation Trazodone HCl (Trazodone Hcl 25 Mg Halftab) 25 mg PO BEDTIME MRX1 PRN PRN Reason: Insomnia Last Admin: 05/09/23 00:07 Dose: 25 mg Allergies Allergies Allergy/AdvReac Type Severity Reaction Status Date / Time Penicillins Allergy Unknown Unknown Verified 05/03/23 22:31 Assessment & Plan Assessment & Plan (1) Bipolar I disorder with nakia: Status: Acute Code(s): F31.10 - Bipolar disorder, current episode manic without psychotic features, unspecified Plan 05/04: continue zyprexa 10 TID. add VPA 1000 mg QHS. 05/05: continue current mgmt. per pt's brother, she is unable to return to her apartment and she has been off meds for about 3 years. 05/06 continue same treatment adding Zydis p.r.n. for agitation. 05/07 continue same treatment 05/08: Guarded, brief. Pt stated, I'm okay. I don't need anything. I'm trying to sleep . denies SI. Continue current tx plan. 05/09: Continue current tx plan. 05/10: less manic than at admission, remains psychotic. check VPA level and labs tonight. 05/11: pt refused labs last night and also VPA. today states she will take meds after the importance is explained to her. seems desirous of discharge. remains delusional, less labile. 05/12: check labs tonight. concern pt is developing a delirium, ammonia level would be helpful. poorer hygiene, more withdrawn, dearth of thoughts. T/C use of tegretol versus lithium if ammonia level proves elevated. 05/13 continue tx. 05/14 continue tx. 05/15: DC VPA order, start lithium. VPA may have caused delirium, which since stop of VPA last monday appears to have improved substantially. continue to encourage compliance with medication. 05/16: continue current mgmt. remains psychotic, labile, and unpredictable. Reason for continued inpatient stay Substantial Risk for: inability to function and rapid decompensation Time Spent With Patient Time: Total time managing care of this patient today __25__ minutes.
[2023-05-16 18:00] VITALS: RESP 20
[2023-05-17] MEDS: Lithium Carbonate ER 450 MG TABLET.ER PO ×2 (08:56→20:58)
[2023-05-17] MEDS: OLANZapine 10 MG TABLET PO ×3 (08:56→20:58)
[2023-05-17] MEDS: Sennosides 8.6 MG TABLET 17.2 MG PO (09:03)
[2023-05-17 09:41] VITALS: BP 127/68; PULSE 100; RESP 20; TEMP 36; O2SAT 98
--- NOTE | 2023-05-17 10:35 | P.PNPSI_ITS ---
Subjective Subjective Date of Service: 05/17/23 Reason For Visit: Schizoaffective Disorder Subjective Notes: Conditional Voluntary Interim History: Patient somewhat rambling discussing issues related to feeling overstimulated where she had been living can not really give clear history of treatment or how it actually she is making decisions. Upset over delusional somatic material related to thoughts that operations had been done on her surreptitiously did refuse medication last night Mental Status Exam Mental Status Exam Narrative: Patient dressed in street clothes superficially cooperative and initially come. Thoughts are somewhat disorganized difficulty with linear explanation and thought some illogicality somatically delusional some paranoia expressed become somewhat labile no SI/HI/AVH expressed tremor noted hand and head. Diagnostics Vital Signs (24Hr): Vital Signs - 24 hr 05/16/23 18:00 05/17/23 09:41 Temperature 96.8 F Pulse Rate 100 Respiratory Rate 20 20 Blood Pressure 127/68 Pulse Oximetry 98 Oxygen Delivery Method Room Air BMI result Body Mass Index 26.5 Medications Medications Current Medications Acetaminophen (Acetaminophen 325 Mg Tablet) 650 mg PO Q6H PRN PRN Reason: Headache/Pain Mild Scale (1-3) Al Hydroxide/Mg Hydroxide (Magnesium Hydrox/Alum Hydrox 30 Ml Oral.Susp) 30 ml PO Q6H PRN PRN Reason: Heartburn/Nausea [place] Carbonate ([place] Carbonate Er 450 Mg Tablet.Er) 450 mg PO BID [facility] Last Admin: 05/17/23 08:56 Dose: 450 mg Magnesium Hydroxide (Milk Of Magnesia 30 Ml Oral.Susp) 30 ml PO DAILY PRN PRN Reason: Constipation Last Admin: 05/12/23 10:37 Dose: 30 ml Nicotine Polacrilex (Nicotine Polacrilex 2 Mg Gum) 4 mg BUCCAL Q2H PRN PRN Reason: Nicotine Cravings Olanzapine (Olanzapine 10 Mg Tablet) 10 mg PO TID [facility] Last Admin: 05/17/23 08:56 Dose: 10 mg Olanzapine (Olanzapine Odt 10 Mg Tab.Rapdis) 10 mg TRANSLINGU BID PRN PRN Reason: agitation Last Admin: 05/16/23 12:46 Dose: 10 mg Polyethylene Glycol (Polyethylene Glycol 3350 17 Gm Powd.Pack) 17 gm PO DAILY [facility] Psyllium Hydrophilic Mucilloid (Psyllium Seed 3.7 Gm Packet) 3.7 gm PO BEDTIME [facility] Last Admin: 05/16/23 21:13 Dose: Not Given Senna (Senna [place] Extract Oral Syrup 15 Ml Syrup) 15 ml PO BEDTIME PRN PRN Reason: constipation Trazodone HCl (Trazodone Hcl 25 Mg Halftab) 25 mg PO BEDTIME MRX1 PRN PRN Reason: Insomnia Last Admin: 05/09/23 00:07 Dose: 25 mg Allergies Allergies Allergy/AdvReac Type Severity Reaction Status Date / Time Penicillins Allergy Unknown Unknown Verified 05/03/23 22:31 Assessment & Plan Assessment & Plan (1) Bipolar I disorder with nakia: Status: Acute Code(s): F31.10 - Bipolar disorder, current episode manic without psychotic features, unspecified Plan 05/04: continue zyprexa 10 TID. add VPA 1000 mg QHS. 05/05: continue current mgmt. per pt's brother, she is unable to return to her apartment and she has been off meds for about 3 years. 05/06 continue same treatment adding Zydis p.r.n. for agitation. 05/07 continue same treatment 05/08: Guarded, brief. Pt stated, I'm okay. I don't need anything. I'm trying to sleep . denies SI. Continue current tx plan. 05/09: Continue current tx plan. 05/10: less manic than at admission, remains psychotic. check VPA level and labs tonight. 05/11: pt refused labs last night and also VPA. today states she will take meds after the importance is explained to her. seems desirous of discharge. remains delusional, less labile. 05/12: check labs tonight. concern pt is developing a delirium, ammonia level would be helpful. poorer hygiene, more withdrawn, dearth of thoughts. T/C use of tegretol versus lithium if ammonia level proves elevated. 05/13 continue tx. Isolated refused medication last night she is noted to be tremulous unclear if relates to lithium being started 450 b.i.d. may be too much starting dose would lowered to 05/14 continue tx. 05/15: DC VPA order, start lithium. VPA may have caused delirium, which since stop of VPA last monday appears to have improved substantially. continue to encourage compliance with medication. 05/16: continue current mgmt. remains psychotic, labile, and unpredictable. May 17 Patient seems less labile she remains quite psychotic she is tremulous lithium dose may be lowered and increase more gradually patient did refuse last night unclear if responding to olanzapine will most likely need more extensive treatment to get response given her lack of treatment for an extended period of time Reason for continued inpatient stay Substantial Risk for: inability to function and rapid decompensation Time Spent With Patient Time: Total time managing care of this patient today ____ minutes.
[2023-05-17] MEDS: polyethylene glycoL 3350 17 GM POWD.PACK PO (11:52)
[2023-05-17 20:15] VITALS: BP 140/60; PULSE 113; RESP 18; TEMP 36.3; O2SAT 96
[2023-05-17] MEDS: traZODone HCL 25 MG HALFTAB PO (20:58)
[2023-05-17] MEDS: Psyllium seed 3.7 GM PACKET PO (20:59)
--- NOTE | 2023-05-17 22:28 | PC.NURSE ---
Nani at first refused HS medications , eventually she did take them. B/P 140/60, HR 113 provider made aware. continue to monitor for safety, continue Plan of Care
[2023-05-18] MEDS: polyethylene glycoL 3350 17 GM POWD.PACK PO (08:39)
[2023-05-18] MEDS: OLANZapine 10 MG TABLET PO ×2 (08:39→14:17)
[2023-05-18] MEDS: Lithium Carbonate ER 300 MG TABLET.ER PO (08:39)
--- NOTE | 2023-05-18 14:41 | P.PNPSI_ITS ---
Subjective Subjective Date of Service: 05/18/23 Reason For Visit: Schizoaffective Disorder Interim History: addresses MD as my laithling, smiling mischievously. focused on relationship problems with her brother, who was visiting this morning. talking of a family crisis for several reasons. MD attempts to redirect pt, which she finds off- putting, getting more quiet and withholding. she is able to discuss medication, states she prefers to take tegretol to lithium, which is accommodated. no tremor visible. per staff, appearing more manic. reporting having had recent surgeries here on her back and rectum. not attending groups. Mental Status Exam Mental Status Exam Narrative: adequately dressed in street clothes. disheveled. cooperative. no PMA/PMR. speech nml rate and loudness, incr amount. thoughts tangential. paranoid delusions regarding threat from her brother. affect full range, normo-intense, non-labile. no SI/HI/AVH expressed. Diagnostics Vital Signs (24Hr): Vital Signs - 24 hr 05/17/23 20:15 Temperature 97.3 F Pulse Rate 113 H Respiratory Rate 18 Blood Pressure 140/60 H Pulse Oximetry 96 Oxygen Delivery Method Room Air BMI result Body Mass Index 26.5 Medications Medications Current Medications Acetaminophen (Acetaminophen 325 Mg Tablet) 650 mg PO Q6H PRN PRN Reason: Headache/Pain Mild Scale (1-3) Al Hydroxide/Mg Hydroxide (Magnesium Hydrox/Alum Hydrox 30 Ml Oral.Susp) 30 ml PO Q6H PRN PRN Reason: Heartburn/Nausea Carbamazepine (Carbamazepine Er 200 Mg Tab.Er.12h) 200 mg PO BID [facility] [place] Carbonate ([place] Carbonate Er 300 Mg Tablet.Er) 150 mg PO BID [facility] Magnesium Hydroxide (Milk Of Magnesia 30 Ml Oral.Susp) 30 ml PO DAILY PRN PRN Reason: Constipation Last Admin: 05/12/23 10:37 Dose: 30 ml Nicotine Polacrilex (Nicotine Polacrilex 2 Mg Gum) 4 mg BUCCAL Q2H PRN PRN Reason: Nicotine Cravings Olanzapine (Olanzapine 10 Mg Tablet) 10 mg PO TID [facility] Last Admin: 05/18/23 14:17 Dose: 10 mg Olanzapine (Olanzapine Odt 10 Mg Tab.Rapdis) 10 mg TRANSLINGU BID PRN PRN Reason: agitation Last Admin: 05/16/23 12:46 Dose: 10 mg Polyethylene Glycol (Polyethylene Glycol 3350 17 Gm Powd.Pack) 17 gm PO DAILY [facility] Last Admin: 05/18/23 08:39 Dose: 17 gm Psyllium Hydrophilic Mucilloid (Psyllium Seed 3.7 Gm Packet) 3.7 gm PO BEDTIME [facility] Last Admin: 05/17/23 20:59 Dose: 3.7 gm Senna (Senna [place] Extract Oral Syrup 15 Ml Syrup) 15 ml PO BEDTIME [facility] Last Admin: 05/17/23 20:58 Dose: 15 ml Trazodone HCl (Trazodone Hcl 25 Mg Halftab) 25 mg PO BEDTIME MRX1 PRN PRN Reason: Insomnia Last Admin: 05/17/23 20:58 Dose: 25 mg Allergies Allergies Allergy/AdvReac Type Severity Reaction Status Date / Time Penicillins Allergy Unknown Unknown Verified 05/03/23 22:31 Assessment & Plan Assessment & Plan (1) Bipolar I disorder with nakia: Status: Acute Code(s): F31.10 - Bipolar disorder, current episode manic without psychotic features, unspecified Plan 05/04: continue zyprexa 10 TID. add VPA 1000 mg QHS. 05/05: continue current mgmt. per pt's brother, she is unable to return to her apartment and she has been off meds for about 3 years. 05/06 continue same treatment adding Zydis p.r.n. for agitation. 05/07 continue same treatment 05/08: Guarded, brief. Pt stated, I'm okay. I don't need anything. I'm trying to sleep . denies SI. Continue current tx plan. 05/09: Continue current tx plan. 05/10: less manic than at admission, remains psychotic. check VPA level and labs tonight. 05/11: pt refused labs last night and also VPA. today states she will take meds after the importance is explained to her. seems desirous of discharge. remains delusional, less labile. 05/12: check labs tonight. concern pt is developing a delirium, ammonia level would be helpful. poorer hygiene, more withdrawn, dearth of thoughts. T/C use of tegretol versus lithium if ammonia level proves elevated. 05/13 continue tx. Isolated refused medication last night she is noted to be tremulous unclear if relates to lithium being started 450 b.i.d. may be too much starting dose would lowered to 05/14 continue tx. 05/15: DC VPA order, start lithium. VPA may have caused delirium, which since stop of VPA last monday appears to have improved substantially. continue to encourage compliance with medication. 05/16: continue current mgmt. remains psychotic, labile, and unpredictable. May 17 Patient seems less labile she remains quite psychotic she is tremulous lithium dose may be lowered and increase more gradually patient did refuse last night unclear if responding to olanzapine will most likely need more extensive treatment to get response given her lack of treatment for an extended period of time 05/18: no tremor. discussed raising lithium dosing again, pt opts to try tegretol. will decrease lithium to 150 BID for now and start tegretol 200 BID. otherwise continue current mgmt. Reason for continued inpatient stay Substantial Risk for: inability to function and rapid decompensation Time Spent With Patient Time: Total time managing care of this patient today __35__ minutes.
[2023-05-19] MEDS: Psyllium seed 3.7 GM PACKET PO ×2 (02:01→21:10)
[2023-05-19] MEDS: traZODone HCL 25 MG HALFTAB PO (02:02)
[2023-05-19] MEDS: Lithium Carbonate ER 300 MG TABLET.ER 150 MG PO ×2 (02:02→09:55)
[2023-05-19] MEDS: carBAMazepine ER 200 MG TAB.ER.12H PO ×3 (02:02→21:09)
[2023-05-19] MEDS: OLANZapine 10 MG TABLET PO ×4 (02:09→21:09)
[2023-05-19 09:10] VITALS: BP 125/70; PULSE 89; RESP 16; TEMP 36.3; O2SAT 95
[2023-05-19] MEDS: polyethylene glycoL 3350 17 GM POWD.PACK PO (09:55)
[2023-05-19 14:19] LABS: Appearance Urine Clear; Color Urine Yellow; Glucose Urine UA Negative (Negative); Leukocyte Esterase Urine Negative (Negative); Nitrite Urine Negative (Negative); Urine Blood Negative (Negative); Urine Ketones Negative (Negative); Urine Protein Negative (Neg-Trace)
--- NOTE | 2023-05-19 14:40 | P.PNPSI_ITS ---
Subjective Subjective Date of Service: 05/19/23 Reason For Visit: Schizoaffective Disorder Interim History: jasmina, cooperative. more logical and less reactive than prior. review med changes. she c/o insomnia, chronic, for the past 3 years. educated re bipolar disorder. agreed to add ativan 2 mg QHS for now, until tegretol starts to work better. per staff, 3-day up monday. angry, withdrawn, labile. agitated. i'm a bad person. Mental Status Exam Mental Status Exam Narrative: adequately dressed in street clothes. disheveled. cooperative. slight PMR. speech nml rate and loudness, decr amount. thoughts more linear and topical. no paranoid delusions expressed. affect constricted, normo-intense, non-labile. no SI/HI/AVH expressed. Diagnostics Vital Signs (24Hr): Vital Signs - 24 hr 05/19/23 09:10 Temperature 97.4 F Pulse Rate 89 Respiratory Rate 16 Blood Pressure 125/70 Pulse Oximetry 95 Oxygen Delivery Method Room Air BMI result Body Mass Index 26.5 Labs Labs: Laboratory Results - last 48 hr 05/19/23 14:00 Urine Color Yellow Urine Appearance Clear Urine pH 7.0 Ur Specific [place] 1.020 Urine Protein Negative Urine Glucose (UA) Negative Urine Ketones Negative Urine Blood Negative Urine Nitrite Negative Ur Leukocyte Esterase Negative Medications Medications Current Medications Acetaminophen (Acetaminophen 325 Mg Tablet) 650 mg PO Q6H PRN PRN Reason: Headache/Pain Mild Scale (1-3) Al Hydroxide/Mg Hydroxide (Magnesium Hydrox/Alum Hydrox 30 Ml Oral.Susp) 30 ml PO Q6H PRN PRN Reason: Heartburn/Nausea Carbamazepine (Carbamazepine Er 200 Mg Tab.Er.12h) 200 mg PO BID [facility] Last Admin: 05/19/23 09:55 Dose: 200 mg Lorazepam (Lorazepam 1 Mg Tablet) 2 mg PO BEDTIME [facility] Magnesium Hydroxide (Milk Of Magnesia 30 Ml Oral.Susp) 30 ml PO DAILY PRN PRN Reason: Constipation Last Admin: 05/12/23 10:37 Dose: 30 ml Nicotine Polacrilex (Nicotine Polacrilex 2 Mg Gum) 4 mg BUCCAL Q2H PRN PRN Reason: Nicotine Cravings Olanzapine (Olanzapine 10 Mg Tablet) 10 mg PO TID [facility] Last Admin: 05/19/23 09:55 Dose: 10 mg Olanzapine (Olanzapine Odt 10 Mg Tab.Rapdis) 10 mg TRANSLINGU BID PRN PRN Reason: agitation Last Admin: 05/16/23 12:46 Dose: 10 mg Polyethylene Glycol (Polyethylene Glycol 3350 17 Gm Powd.Pack) 17 gm PO DAILY [facility] Last Admin: 05/19/23 09:55 Dose: 17 gm Psyllium Hydrophilic Mucilloid (Psyllium Seed 3.7 Gm Packet) 3.7 gm PO BEDTIME [facility] Last Admin: 05/19/23 02:01 Dose: 3.7 gm Senna (Senna [place] Extract Oral Syrup 15 Ml Syrup) 15 ml PO BEDTIME [facility] Last Admin: 05/19/23 02:01 Dose: 15 ml Trazodone HCl (Trazodone Hcl 25 Mg Halftab) 25 mg PO BEDTIME MRX1 PRN PRN Reason: Insomnia Last Admin: 05/19/23 02:02 Dose: 25 mg Allergies Allergies Allergy/AdvReac Type Severity Reaction Status Date / Time Penicillins Allergy Unknown Unknown Verified 05/03/23 22:31 Assessment & Plan Assessment & Plan (1) Bipolar I disorder with nakia: Status: Acute Code(s): F31.10 - Bipolar disorder, current episode manic without psychotic features, unspecified Plan 05/04: continue zyprexa 10 TID. add VPA 1000 mg QHS. 05/05: continue current mgmt. per pt's brother, she is unable to return to her apartment and she has been off meds for about 3 years. 05/06 continue same treatment adding Zydis p.r.n. for agitation. 05/07 continue same treatment 05/08: Guarded, brief. Pt stated, I'm okay. I don't need anything. I'm trying to sleep . denies SI. Continue current tx plan. 05/09: Continue current tx plan. 05/10: less manic than at admission, remains psychotic. check VPA level and labs tonight. 05/11: pt refused labs last night and also VPA. today states she will take meds after the importance is explained to her. seems desirous of discharge. remains delusional, less labile. 05/12: check labs tonight. concern pt is developing a delirium, ammonia level would be helpful. poorer hygiene, more withdrawn, dearth of thoughts. T/C use of tegretol versus lithium if ammonia level proves elevated. 05/13 continue tx. Isolated refused medication last night she is noted to be tremulous unclear if relates to lithium being started 450 b.i.d. may be too much starting dose would lowered to 05/14 continue tx. 05/15: DC VPA order, start lithium. VPA may have caused delirium, which since stop of VPA last monday appears to have improved substantially. continue to encourage compliance with medication. 05/16: continue current mgmt. remains psychotic, labile, and unpredictable. May 17 Patient seems less labile she remains quite psychotic she is tremulous lithium dose may be lowered and increase more gradually patient did refuse last night unclear if responding to olanzapine will most likely need more extensive treatment to get response given her lack of treatment for an extended period of time 05/19: slower and more organized since starting tegretol yesterday. DC lithium as discussed yesterday. continue tegretol. ativan 2 mg QHS added for insomnia. Reason for continued inpatient stay Substantial Risk for: inability to function and rapid decompensation Time Spent With Patient Time: Total time managing care of this patient today __25__ minutes.
[2023-05-19 15:49] LABS: CT PCR NOT DETECTED (Not Detect.); NG PCR NOT DETECTED (Not Detect.)
[2023-05-19 21:00] VITALS: BP 140/76; PULSE 88; RESP 18; TEMP 36.4; O2SAT 96
[2023-05-19] MEDS: LORazepam 1 MG TABLET 2 MG PO (21:09)
[2023-05-20] MEDS: OLANZapine 10 MG TABLET PO ×3 (09:39→21:05)
[2023-05-20] MEDS: polyethylene glycoL 3350 17 GM POWD.PACK PO (09:39)
[2023-05-20] MEDS: carBAMazepine ER 200 MG TAB.ER.12H PO ×2 (09:39→21:05)
[2023-05-20 10:50] LABS: BV Int Neg Control Negative (Negative); BV Int Pos Control Positive (Positive)
[2023-05-20] MEDS: Fluconazole 150 MG TABLET PO (11:28)
--- NOTE | 2023-05-20 17:43 | HO.PSYCHPN ---
Subjective Subjective Date of Service: 05/20/23 Reason For Visit: Schizoaffective Disorder Interim History: Patient has been calm, cooperative. Less pressured and reactive per staff and patient reports feeling better. She slept better. Says I am feeling straight. Denies side effects. Says she has vaginal itching and reports it is similar to previous vaginal thrush/daniela. 3 day up on Monday. Review of Systems Review of Systems refused Constitutional: Reports as per HPI Eyes: Reports as per HPI Reports as per HPI Cardiovascular: Reports as per HPI Respiratory: Reports as per HPI Gastrointestinal: Reports as per HPI Musculoskeletal: Reports as per HPI Skin/Breast: Reports as per HPI Reports as per HPI Psychiatric: Reports as per HPI Endocrine: Reports as per HPI Hematologic/Lymphatic: Reports as per HPI Allergic/Immunologic: Reports as per HPI Mental Status Exam Mental Status Exam Narrative: adequately dressed in street clothes. disheveled. cooperative. slight PMR. speech nml rate and loudness, decr amount. thoughts more linear and topical. no paranoid delusions expressed. affect constricted, normo-intense, non-labile. no SI/HI/AVH expressed. Patient Appearance: Appropriate Patient Orientation: Person and Situation Level of Consciousness: Awake Patient Behavior: Guarded and Passive Mood Description: Withdrawn Affect Description: Constricted Patient Cognition Impaired: Yes Ability to Follow Directions: Good Speech Pattern: Clear Diagnostics Vital Signs (24Hr): Vital Signs - 24 hr 05/19/23 21:00 Temperature 97.6 F Pulse Rate 88 Respiratory Rate 18 Blood Pressure 140/76 H Pulse Oximetry 96 Oxygen Delivery Method Room Air BMI result Body Mass Index 26.5 Labs Labs: Laboratory Results - last 48 hr 05/19/23 05/19/23 13:00 14:00 Urine Color Yellow Urine Appearance Clear Urine pH 7.0 Ur Specific [place] 1.020 Urine Protein Negative Urine Glucose (UA) Negative Urine Ketones Negative Urine Blood Negative Urine Nitrite Negative Ur Leukocyte Esterase Negative Daniela species DNA Negative Chlam trachomat DNA PCR NOT DETECTED Gardnerella DNA Probe Positive A N.gonorrhoeae DNA (PCR) NOT DETECTED Trichomonas DNA Probe Negative Medications Medications Current Medications Acetaminophen (Acetaminophen 325 Mg Tablet) 650 mg PO Q6H PRN PRN Reason: Headache/Pain Mild Scale (1-3) Al Hydroxide/Mg Hydroxide (Magnesium Hydrox/Alum Hydrox 30 Ml Oral.Susp) 30 ml PO Q6H PRN PRN Reason: Heartburn/Nausea Benzocaine (Throat Lozenge, Medicated Lozenge) 1 lozenge MUCOUS MEM Q2H PRN PRN Reason: Sore Throat Carbamazepine (Carbamazepine Er 200 Mg Tab.Er.12h) 200 mg PO BID [facility] B[facility]S AT [facility] Last Admin: 05/20/23 09:39 Dose: 200 mg Lorazepam (Lorazepam 1 Mg Tablet) 2 mg PO BEDTIME [facility]S [facility]CLUDE 234 BEDS AT [facility] Last Admin: 05/19/23 21:09 Dose: 2 mg Magnesium Hydroxide (Milk Of Magnesia 30 Ml Oral.Susp) 30 ml PO DAILY PRN PRN Reason: Constipation Last Admin: 05/12/23 10:37 Dose: 30 ml Nicotine Polacrilex (Nicotine Polacrilex 2 Mg Gum) 4 mg BUCCAL Q2H PRN PRN Reason: Nicotine Cravings Olanzapine (Olanzapine 10 Mg Tablet) 10 mg PO TID [facility]S [facility]CLUDE 234 BEDS AT [facility] Last Admin: 05/20/23 14:54 Dose: 10 mg Olanzapine (Olanzapine Odt 10 Mg Tab.Rapdis) 10 mg TRANSLINGU BID PRN PRN Reason: agitation Last Admin: 05/16/23 12:46 Dose: 10 mg Polyethylene Glycol (Polyethylene Glycol 3350 17 Gm Powd.Pack) 17 gm PO DAILY [facility]S [facility]CLUDE 234 BEDS AT [facility] Last Admin: 05/20/23 09:39 Dose: 17 gm Psyllium Hydrophilic Mucilloid (Psyllium Seed 3.7 Gm Packet) 3.7 gm PO BEDTIME COUNTS [facility]CLUDE 234 BEDS AT [facility] Last Admin: 05/19/23 21:10 Dose: 3.7 gm Senna (Senna [place] Extract Oral Syrup 15 Ml Syrup) 15 ml PO BEDTIME [facility]S [facility] 234 BEDS AT [facility] Last Admin: 05/19/23 21:10 Dose: 15 ml Trazodone HCl (Trazodone Hcl 25 Mg Halftab) 25 mg PO BEDTIME MRX1 PRN PRN Reason: Insomnia Last Admin: 05/19/23 02:02 Dose: 25 mg Allergies Allergies Allergy/AdvReac Type Severity Reaction Status Date / Time Penicillins Allergy Unknown Unknown Verified 05/03/23 22:31 Assessment & Plan Assessment & Plan (1) Bipolar I disorder with nakia: Status: Acute Code(s): F31.10 - Bipolar disorder, current episode manic without psychotic features, unspecified Plan 05/04: continue zyprexa 10 TID. add VPA 1000 mg QHS. 05/05: continue current mgmt. per pt's brother, she is unable to return to her apartment and she has been off meds for about 3 years. 05/06 continue same treatment adding Zydis p.r.n. for agitation. 05/07 continue same treatment 05/08: Guarded, brief. Pt stated, I'm okay. I don't need anything. I'm trying to sleep . denies SI. Continue current tx plan. 05/09: Continue current tx plan. 05/10: less manic than at admission, remains psychotic. check VPA level and labs tonight. 05/11: pt refused labs last night and also VPA. today states she will take meds after the importance is explained to her. seems desirous of discharge. remains delusional, less labile. 05/12: check labs tonight. concern pt is developing a delirium, ammonia level would be helpful. poorer hygiene, more withdrawn, dearth of thoughts. T/C use of tegretol versus lithium if ammonia level proves elevated. 05/13 continue tx. Isolated refused medication last night she is noted to be tremulous unclear if relates to lithium being started 450 b.i.d. may be too much starting dose would lowered to 05/14 continue tx. 05/15: DC VPA order, start lithium. VPA may have caused delirium, which since stop of VPA last monday appears to have improved substantially. continue to encourage compliance with medication. 05/16: continue current mgmt. remains psychotic, labile, and unpredictable. May 17 Patient seems less labile she remains quite psychotic she is tremulous lithium dose may be lowered and increase more gradually patient did refuse last night unclear if responding to olanzapine will most likely need more extensive treatment to get response given her lack of treatment for an extended period of time 05/19: slower and more organized since starting tegretol yesterday. DC lithium as discussed yesterday. continue tegretol. ativan 2 mg QHS added for insomnia. 05/20: Continue current treatment plan Reason for continued inpatient stay Substantial Risk for: inability to function and rapid decompensation Time Spent With Patient Time: Total time managing care of this patient today ____ minutes.
--- NOTE | 2023-05-20 20:31 | P.PNPSI_ITS ---
Subjective Subjective Date of Service: 05/20/23 Reason For Visit: Schizoaffective Disorder Interim History: Patient has been calm, cooperative. Less pressured and reactive per staff and patient reports feeling better. She slept better. Says I am feeling straight. Denies side effects. Says she has vaginal itching and reports it is similar to previous vaginal thrush/daniela. 3 day up on Monday. Review of Systems Review of Systems refused Constitutional: Reports as per HPI Eyes: Reports as per HPI Reports as per HPI Cardiovascular: Reports as per HPI Respiratory: Reports as per HPI Gastrointestinal: Reports as per HPI Musculoskeletal: Reports as per HPI Skin/Breast: Reports as per HPI Reports as per HPI Psychiatric: Reports as per HPI Endocrine: Reports as per HPI Hematologic/Lymphatic: Reports as per HPI Allergic/Immunologic: Reports as per HPI Mental Status Exam Mental Status Exam Narrative: adequately dressed in street clothes. disheveled. cooperative. slight PMR. speech nml rate and loudness, decr amount. thoughts more linear and topical. no paranoid delusions expressed. affect constricted, normo-intense, non-labile. no SI/HI/AVH expressed. Patient Appearance: Appropriate Patient Orientation: Person and Situation Level of Consciousness: Awake Patient Behavior: Guarded and Passive Mood Description: Withdrawn Affect Description: Constricted Patient Cognition Impaired: Yes Ability to Follow Directions: Good Speech Pattern: Clear Diagnostics Vital Signs (24Hr): Vital Signs - 24 hr 05/19/23 21:00 Temperature 97.6 F Pulse Rate 88 Respiratory Rate 18 Blood Pressure 140/76 H Pulse Oximetry 96 Oxygen Delivery Method Room Air BMI result Body Mass Index 26.5 Labs Labs: Laboratory Results - last 48 hr 05/19/23 05/19/23 13:00 14:00 Urine Color Yellow Urine Appearance Clear Urine pH 7.0 Ur Specific [place] 1.020 Urine Protein Negative Urine Glucose (UA) Negative Urine Ketones Negative Urine Blood Negative Urine Nitrite Negative Ur Leukocyte Esterase Negative Daniela species DNA Negative Chlam trachomat DNA PCR NOT DETECTED Gardnerella DNA Probe Positive A N.gonorrhoeae DNA (PCR) NOT DETECTED Trichomonas DNA Probe Negative Medications Medications Current Medications Acetaminophen (Acetaminophen 325 Mg Tablet) 650 mg PO Q6H PRN PRN Reason: Headache/Pain Mild Scale (1-3) Al Hydroxide/Mg Hydroxide (Magnesium Hydrox/Alum Hydrox 30 Ml Oral.Susp) 30 ml PO Q6H PRN PRN Reason: Heartburn/Nausea Benzocaine (Throat Lozenge, Medicated Lozenge) 1 lozenge MUCOUS MEM Q2H PRN PRN Reason: Sore Throat Carbamazepine (Carbamazepine Er 200 Mg Tab.Er.12h) 200 mg PO BID [facility] Last Admin: 05/20/23 09:39 Dose: 200 mg Lorazepam (Lorazepam 1 Mg Tablet) 2 mg PO BEDTIME [facility] Last Admin: 05/19/23 21:09 Dose: 2 mg Magnesium Hydroxide (Milk Of Magnesia 30 Ml Oral.Susp) 30 ml PO DAILY PRN PRN Reason: Constipation Last Admin: 05/12/23 10:37 Dose: 30 ml Nicotine Polacrilex (Nicotine Polacrilex 2 Mg Gum) 4 mg BUCCAL Q2H PRN PRN Reason: Nicotine Cravings Olanzapine (Olanzapine 10 Mg Tablet) 10 mg PO TID [facility] Last Admin: 05/20/23 14:54 Dose: 10 mg Olanzapine (Olanzapine Odt 10 Mg Tab.Rapdis) 10 mg TRANSLINGU BID PRN PRN Reason: agitation Last Admin: 05/16/23 12:46 Dose: 10 mg Polyethylene Glycol (Polyethylene Glycol 3350 17 Gm Powd.Pack) 17 gm PO DAILY [facility] Last Admin: 05/20/23 09:39 Dose: 17 gm Psyllium Hydrophilic Mucilloid (Psyllium Seed 3.7 Gm Packet) 3.7 gm PO BEDTIME [facility] Last Admin: 05/19/23 21:10 Dose: 3.7 gm Senna (Senna [place] Extract Oral Syrup 15 Ml Syrup) 15 ml PO BEDTIME [facility] Last Admin: 05/19/23 21:10 Dose: 15 ml Trazodone HCl (Trazodone Hcl 25 Mg Halftab) 25 mg PO BEDTIME MRX1 PRN PRN Reason: Insomnia Last Admin: 05/19/23 02:02 Dose: 25 mg Allergies Allergies Allergy/AdvReac Type Severity Reaction Status Date / Time Penicillins Allergy Unknown Unknown Verified 05/03/23 22:31 Assessment & Plan Assessment & Plan (1) Bipolar I disorder with nakia: Status: Acute Code(s): F31.10 - Bipolar disorder, current episode manic without psychotic features, unspecified Plan 05/04: continue zyprexa 10 TID. add VPA 1000 mg QHS. 05/05: continue current mgmt. per pt's brother, she is unable to return to her apartment and she has been off meds for about 3 years. 05/06 continue same treatment adding Zydis p.r.n. for agitation. 05/07 continue same treatment 05/08: Guarded, brief. Pt stated, I'm okay. I don't need anything. I'm trying to sleep . denies SI. Continue current tx plan. 05/09: Continue current tx plan. 05/10: less manic than at admission, remains psychotic. check VPA level and labs tonight. 05/11: pt refused labs last night and also VPA. today states she will take meds after the importance is explained to her. seems desirous of discharge. remains delusional, less labile. 05/12: check labs tonight. concern pt is developing a delirium, ammonia level would be helpful. poorer hygiene, more withdrawn, dearth of thoughts. T/C use of tegretol versus lithium if ammonia level proves elevated. 05/13 continue tx. Isolated refused medication last night she is noted to be tremulous unclear if relates to lithium being started 450 b.i.d. may be too much starting dose would lowered to 05/14 continue tx. 05/15: DC VPA order, start lithium. VPA may have caused delirium, which since stop of VPA last monday appears to have improved substantially. continue to encourage compliance with medication. 05/16: continue current mgmt. remains psychotic, labile, and unpredictable. May 17 Patient seems less labile she remains quite psychotic she is tremulous lithium dose may be lowered and increase more gradually patient did refuse last night unclear if responding to olanzapine will most likely need more extensive treatment to get response given her lack of treatment for an extended period of time 05/19: slower and more organized since starting tegretol yesterday. DC lithium as discussed yesterday. continue tegretol. ativan 2 mg QHS added for insomnia. 05/20: Diflucan 150 mg x 1 for presumptive vaginal candidiasis. Continue current treatment plan. Reason for continued inpatient stay Substantial Risk for: inability to function and rapid decompensation Time Spent With Patient Time: Total time managing care of this patient today ____ minutes.
[2023-05-20] MEDS: LORazepam 1 MG TABLET 2 MG PO (21:05)
[2023-05-20] MEDS: Psyllium seed 3.7 GM PACKET PO (21:07)
[2023-05-21 08:10] LABS: Lithium 0.14 mmol/L (0.60-1.20)
[2023-05-21] MEDS: OLANZapine 10 MG TABLET PO ×3 (08:16→20:21)
[2023-05-21] MEDS: polyethylene glycoL 3350 17 GM POWD.PACK PO (08:16)
[2023-05-21] MEDS: carBAMazepine ER 200 MG TAB.ER.12H PO ×2 (08:16→20:21)
--- NOTE | 2023-05-21 16:48 | P.PNPSI_ITS ---
Subjective Subjective Date of Service: 05/21/23 Reason For Visit: Schizoaffective Disorder Interim History: Patient has been calm, cooperative. Mood improved. Less pressured and reactive per staff and patient reports feeling better. She slept better. Tested positive for Gardnerella (BV.) Denies side effects from medications. 3 day up on Monday. Review of Systems Review of Systems refused Constitutional: Reports as per HPI Eyes: Reports as per HPI Reports as per HPI Cardiovascular: Reports as per HPI Respiratory: Reports as per HPI Gastrointestinal: Reports as per HPI Musculoskeletal: Reports as per HPI Skin/Breast: Reports as per HPI Reports as per HPI Psychiatric: Reports as per HPI Endocrine: Reports as per HPI Hematologic/Lymphatic: Reports as per HPI Allergic/Immunologic: Reports as per HPI Mental Status Exam Mental Status Exam Narrative: adequately dressed in street clothes. disheveled. cooperative. slight PMR. speech nml rate and loudness, decr amount. thoughts more linear and topical. no paranoid delusions expressed. affect constricted, normo-intense, non-labile. no SI/HI/AVH expressed. Patient Appearance: Appropriate Patient Orientation: Person and Situation Level of Consciousness: Awake Patient Behavior: Guarded and Passive Mood Description: Withdrawn Affect Description: Constricted Patient Cognition Impaired: Yes Ability to Follow Directions: Good Speech Pattern: Clear Diagnostics Vital Signs (24Hr): BMI result Body Mass Index 26.5 Labs Labs: Laboratory Results - last 48 hr 05/19/23 05/21/23 13:00 07:53 [place] 0.14 L Daniela species DNA Negative Gardnerella DNA Probe Positive A Trichomonas DNA Probe Negative Medications Medications Current Medications Acetaminophen (Acetaminophen 325 Mg Tablet) 650 mg PO Q6H PRN PRN Reason: Headache/Pain Mild Scale (1-3) Al Hydroxide/Mg Hydroxide (Magnesium Hydrox/Alum Hydrox 30 Ml Oral.Susp) 30 ml PO Q6H PRN PRN Reason: Heartburn/Nausea Benzocaine (Throat Lozenge, Medicated Lozenge) 1 lozenge MUCOUS MEM Q2H PRN PRN Reason: Sore Throat Carbamazepine (Carbamazepine Er 200 Mg Tab.Er.12h) 200 mg PO BID [facility] Last Admin: 05/21/23 08:16 Dose: 200 mg Lorazepam (Lorazepam 1 Mg Tablet) 2 mg PO BEDTIME [facility] Last Admin: 05/20/23 21:05 Dose: 2 mg Magnesium Hydroxide (Milk Of Magnesia 30 Ml Oral.Susp) 30 ml PO DAILY PRN PRN Reason: Constipation Last Admin: 05/12/23 10:37 Dose: 30 ml Nicotine Polacrilex (Nicotine Polacrilex 2 Mg Gum) 4 mg BUCCAL Q2H PRN PRN Reason: Nicotine Cravings Olanzapine (Olanzapine 10 Mg Tablet) 10 mg PO TID [facility] Last Admin: 05/21/23 15:11 Dose: 10 mg Olanzapine (Olanzapine Odt 10 Mg Tab.Rapdis) 10 mg TRANSLINGU BID PRN PRN Reason: agitation Last Admin: 05/16/23 12:46 Dose: 10 mg Polyethylene Glycol (Polyethylene Glycol 3350 17 Gm Powd.Pack) 17 gm PO DAILY [facility] Last Admin: 05/21/23 08:16 Dose: 17 gm Psyllium Hydrophilic Mucilloid (Psyllium Seed 3.7 Gm Packet) 3.7 gm PO BEDTIME [facility] Last Admin: 05/20/23 21:07 Dose: 3.7 gm Senna (Senna [place] Extract Oral Syrup 15 Ml Syrup) 15 ml PO BEDTIME [facility] Last Admin: 05/20/23 21:06 Dose: 15 ml Trazodone HCl (Trazodone Hcl 25 Mg Halftab) 25 mg PO BEDTIME MRX1 PRN PRN Reason: Insomnia Last Admin: 05/19/23 02:02 Dose: 25 mg Allergies Allergies Allergy/AdvReac Type Severity Reaction Status Date / Time Penicillins Allergy Unknown Unknown Verified 05/03/23 22:31 Assessment & Plan Assessment & Plan (1) Bipolar I disorder with nakia: Status: Acute Code(s): F31.10 - Bipolar disorder, current episode manic without psychotic features, unspecified Plan 05/04: continue zyprexa 10 TID. add VPA 1000 mg QHS. 05/05: continue current mgmt. per pt's brother, she is unable to return to her apartment and she has been off meds for about 3 years. 05/06 continue same treatment adding Zydis p.r.n. for agitation. 05/07 continue same treatment 05/08: Guarded, brief. Pt stated, I'm okay. I don't need anything. I'm trying to sleep . denies SI. Continue current tx plan. 05/09: Continue current tx plan. 05/10: less manic than at admission, remains psychotic. check VPA level and labs tonight. 05/11: pt refused labs last night and also VPA. today states she will take meds after the importance is explained to her. seems desirous of discharge. remains delusional, less labile. 05/12: check labs tonight. concern pt is developing a delirium, ammonia level would be helpful. poorer hygiene, more withdrawn, dearth of thoughts. T/C use of tegretol versus lithium if ammonia level proves elevated. 05/13 continue tx. Isolated refused medication last night she is noted to be tremulous unclear if relates to lithium being started 450 b.i.d. may be too much starting dose would lowered to 05/14 continue tx. 05/15: DC VPA order, start lithium. VPA may have caused delirium, which since stop of VPA last monday appears to have improved substantially. continue to encourage compliance with medication. 05/16: continue current mgmt. remains psychotic, labile, and unpredictable. May 17 Patient seems less labile she remains quite psychotic she is tremulous lithium dose may be lowered and increase more gradually patient did refuse last night unclear if responding to olanzapine will most likely need more extensive treatment to get response given her lack of treatment for an extended period of time 05/19: slower and more organized since starting tegretol yesterday. DC lithium as discussed yesterday. continue tegretol. ativan 2 mg QHS added for insomnia. 05/20: Diflucan 150 mg x 1 for presumptive vaginal candidiasis. Continue current treatment plan. 05/21: Flagyl 500 mg BID for 7 days. Otherwise, continue current management and treatment plan. Reason for continued inpatient stay Substantial Risk for: inability to function and rapid decompensation Time Spent With Patient Time: Total time managing care of this patient today ____ minutes.
[2023-05-21 19:30] VITALS: RESP 18
[2023-05-21] MEDS: LORazepam 1 MG TABLET 2 MG PO (20:20)
[2023-05-21] MEDS: Psyllium seed 3.7 GM PACKET PO (20:20)
[2023-05-21] MEDS: metroNIDAZOLE 500 MG TABLET PO (20:57)
[2023-05-22] MEDS: Throat Lozenge, Medicated LOZENGE 1 LOZENGE MUCOUS MEM ×2 (05:36→19:25)
[2023-05-22] MEDS: OLANZapine 10 MG TABLET PO ×3 (08:23→20:52)
[2023-05-22] MEDS: metroNIDAZOLE 500 MG TABLET PO ×2 (08:23→20:52)
[2023-05-22] MEDS: carBAMazepine ER 200 MG TAB.ER.12H PO ×2 (08:23→20:52)
[2023-05-22] MEDS: polyethylene glycoL 3350 17 GM POWD.PACK PO (08:26)
[2023-05-22] MEDS: Nicotine Polacrilex 2 MG GUM 4 MG BUCCAL (10:23)
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
[2023-05-22] MEDS: Psyllium seed 3.7 GM PACKET PO (20:50)
[2023-05-22] MEDS: LORazepam 1 MG TABLET 2 MG PO (20:51)
[2023-05-23] MEDS: OLANZapine 10 MG TABLET PO ×3 (08:34→21:27)
[2023-05-23] MEDS: metroNIDAZOLE 500 MG TABLET PO ×2 (08:34→21:27)
[2023-05-23] MEDS: carBAMazepine ER 200 MG TAB.ER.12H PO ×2 (08:34→21:27)
[2023-05-23] MEDS: polyethylene glycoL 3350 17 GM POWD.PACK PO (08:35)
[2023-05-23] MEDS: Magnesium Hydrox/Alum Hydrox 30 ML ORAL.SUSP PO (13:54)
--- NOTE | 2023-05-23 20:58 | P.PNPSI_ITS ---
Subjective Subjective Date of Service: 05/23/23 Reason For Visit: Schizoaffective Disorder Subjective Notes: Conditional Voluntary and 3 Day Interim History: Pt presents as less paranoid. She is eating well. She signed 3 day. She is taking medications as prescribed. She asks if SW can help with housing. She met with SW, options are limited. No behavioral concerns. No SI/HI. Review of Systems Review of Systems refused Constitutional: Reports as per HPI Eyes: Reports as per HPI Reports as per HPI Cardiovascular: Reports as per HPI Respiratory: Reports as per HPI Gastrointestinal: Reports as per HPI Musculoskeletal: Reports as per HPI Skin/Breast: Reports as per HPI Reports as per HPI Psychiatric: Reports as per HPI Endocrine: Reports as per HPI Hematologic/Lymphatic: Reports as per HPI Allergic/Immunologic: Reports as per HPI Mental Status Exam Mental Status Exam Patient Appearance: Appropriate Patient Orientation: Person and Situation Level of Consciousness: Awake Patient Behavior: Guarded and Passive Mood Description: Withdrawn Affect Description: Constricted Patient Cognition Impaired: Yes Ability to Follow Directions: Good Speech Pattern: Clear Diagnostics Vital Signs (24Hr): BMI result Body Mass Index 26.5 Medications Medications Current Medications Acetaminophen (Acetaminophen 325 Mg Tablet) 650 mg PO Q6H PRN PRN Reason: Headache/Pain Mild Scale (1-3) Al Hydroxide/Mg Hydroxide (Magnesium Hydrox/Alum Hydrox 30 Ml Oral.Susp) 30 ml PO Q6H PRN PRN Reason: Heartburn/Nausea Last Admin: 05/23/23 13:54 Dose: 30 ml Benzocaine (Throat Lozenge, Medicated Lozenge) 1 lozenge MUCOUS MEM Q2H PRN PRN Reason: Sore Throat Last Admin: 05/22/23 19:25 Dose: 1 lozenge Carbamazepine (Carbamazepine Er 200 Mg Tab.Er.12h) 200 mg PO BID [facility] Last Admin: 05/23/23 08:34 Dose: 200 mg Lorazepam (Lorazepam 1 Mg Tablet) 2 mg PO BEDTIME [facility] Last Admin: 05/22/23 20:51 Dose: 2 mg Magnesium Hydroxide (Milk Of Magnesia 30 Ml Oral.Susp) 30 ml PO DAILY PRN PRN Reason: Constipation Last Admin: 05/12/23 10:37 Dose: 30 ml Metronidazole (Metronidazole 500 Mg Tablet) 500 mg PO Q12H [facility] Stop: 05/28/23 23:59 Last Admin: 05/23/23 08:34 Dose: 500 mg Nicotine Polacrilex (Nicotine Polacrilex 2 Mg Gum) 4 mg BUCCAL Q2H PRN PRN Reason: Nicotine Cravings Last Admin: 05/22/23 10:23 Dose: 4 mg Olanzapine (Olanzapine 10 Mg Tablet) 10 mg PO TID [facility] Last Admin: 05/23/23 15:31 Dose: 10 mg Olanzapine (Olanzapine Odt 10 Mg Tab.Rapdis) 10 mg TRANSLINGU BID PRN PRN Reason: agitation Last Admin: 05/16/23 12:46 Dose: 10 mg Polyethylene Glycol (Polyethylene Glycol 3350 17 Gm Powd.Pack) 17 gm PO DAILY [facility] Last Admin: 05/23/23 08:35 Dose: 17 gm Psyllium Hydrophilic Mucilloid (Psyllium Seed 3.7 Gm Packet) 3.7 gm PO BEDTIME [facility] Last Admin: 05/22/23 20:50 Dose: 3.7 gm Senna (Senna [place] Extract Oral Syrup 15 Ml Syrup) 15 ml PO BEDTIME [facility] Last Admin: 05/22/23 20:51 Dose: 15 ml Trazodone HCl (Trazodone Hcl 25 Mg Halftab) 25 mg PO BEDTIME MRX1 PRN PRN Reason: Insomnia Last Admin: 05/19/23 02:02 Dose: 25 mg Allergies Allergies Allergy/AdvReac Type Severity Reaction Status Date / Time Penicillins Allergy Unknown Unknown Verified 05/03/23 22:31 Assessment & Plan Assessment & Plan (1) Bipolar I disorder with nakia: Status: Acute Code(s): F31.10 - Bipolar disorder, current episode manic without psychotic features, unspecified Plan 05/04: continue zyprexa 10 TID. add VPA 1000 mg QHS. 05/05: continue current mgmt. per pt's brother, she is unable to return to her apartment and she has been off meds for about 3 years. 05/06 continue same treatment adding Zydis p.r.n. for agitation. 05/07 continue same treatment 05/08: Guarded, brief. Pt stated, I'm okay. I don't need anything. I'm trying to sleep . denies SI. Continue current tx plan. 05/09: Continue current tx plan. 05/10: less manic than at admission, remains psychotic. check VPA level and lab s tonight. 05/11: pt refused labs last night and also VPA. today states she will take meds after the importance is explained to her. seems desirous of discharge. remains delusional, less labile. 05/12: check labs tonight. concern pt is developing a delirium, ammonia level would be helpful. poorer hygiene, more withdrawn, dearth of thoughts. T/C use of tegretol versus lithium if ammonia level proves elevated. 05/13 continue tx. Isolated refused medication last night she is noted to be tremulous unclear if relates to lithium being started 450 b.i.d. may be too much starting dose would lowered to 05/14 continue tx. 05/15: DC VPA order, start lithium. VPA may have caused delirium, which since stop of VPA last monday appears to have improved substantially. continue to encourage compliance with medication. 05/16: continue current mgmt. remains psychotic, labile, and unpredictable. May 17 Patient seems less labile she remains quite psychotic she is tremulous lithium dose may be lowered and increase more gradually patient did refuse last night unclear if responding to olanzapine will most likely need more extensive treatment to get response given her lack of treatment for an extended period of time 05/19: slower and more organized since starting tegretol yesterday. DC lithium as discussed yesterday. continue tegretol. ativan 2 mg QHS added for insomnia. 05/20: Diflucan 150 mg x 1 for presumptive vaginal candidiasis. Continue current treatment plan. 05/21: Flagyl 500 mg BID for 7 days. Otherwise, continue current management and treatment plan. 05/22 continue tx. 05/23 contineu tx. Reason for continued inpatient stay Substantial Risk for: inability to function Time Spent With Patient Time: Total time managing care of this patient today ____ minutes.
[2023-05-23] MEDS: Psyllium seed 3.7 GM PACKET PO (21:27)
[2023-05-23] MEDS: LORazepam 1 MG TABLET 2 MG PO (21:27)
[2023-05-23 21:30] VITALS: RESP 16; TEMP 36.6
[2023-05-24] MEDS: polyethylene glycoL 3350 17 GM POWD.PACK PO (08:10)
[2023-05-24] MEDS: carBAMazepine ER 200 MG TAB.ER.12H PO ×2 (08:10→21:22)
[2023-05-24] MEDS: OLANZapine 10 MG TABLET PO ×2 (08:10→14:28)
[2023-05-24] MEDS: metroNIDAZOLE 500 MG TABLET PO ×2 (08:10→21:22)
[2023-05-24] MEDS: Throat Lozenge, Medicated LOZENGE 1 LOZENGE MUCOUS MEM (15:18)
--- NOTE | 2023-05-24 16:57 | P.PNPSI_ITS ---
Subjective Subjective Date of Service: 05/24/23 Reason For Visit: Schizoaffective Disorder Subjective Notes: 3 Day Interim History: Pt presents as less paranoid. She is eating well. She signed 3 day. She is taking medications as prescribed. She asks if SW can help with housing. She met with SW, options are limited. No behavioral concerns. No SI/HI. Review of Systems Review of Systems refused Constitutional: Reports as per HPI Eyes: Reports as per HPI Reports as per HPI Cardiovascular: Reports as per HPI Respiratory: Reports as per HPI Gastrointestinal: Reports as per HPI Musculoskeletal: Reports as per HPI Skin/Breast: Reports as per HPI Reports as per HPI Psychiatric: Reports as per HPI Endocrine: Reports as per HPI Hematologic/Lymphatic: Reports as per HPI Allergic/Immunologic: Reports as per HPI Mental Status Exam Mental Status Exam Patient Appearance: Appropriate Patient Orientation: Person and Situation Level of Consciousness: Awake Patient Behavior: Guarded and Passive Mood Description: Withdrawn Affect Description: Constricted Patient Cognition Impaired: Yes Ability to Follow Directions: Good Speech Pattern: Clear Diagnostics Vital Signs (24Hr): Vital Signs - 24 hr 05/23/23 21:30 Temperature 97.8 F Respiratory Rate 16 BMI result Body Mass Index 26.5 Medications Medications Current Medications Acetaminophen (Acetaminophen 325 Mg Tablet) 650 mg PO Q6H PRN PRN Reason: Headache/Pain Mild Scale (1-3) Al Hydroxide/Mg Hydroxide (Magnesium Hydrox/Alum Hydrox 30 Ml Oral.Susp) 30 ml PO Q6H PRN PRN Reason: Heartburn/Nausea Last Admin: 05/23/23 13:54 Dose: 30 ml Benzocaine (Throat Lozenge, Medicated Lozenge) 1 lozenge MUCOUS MEM Q2H PRN PRN Reason: Sore Throat Last Admin: 05/24/23 15:18 Dose: 1 lozenge Carbamazepine (Carbamazepine Er 200 Mg Tab.Er.12h) 200 mg PO BID [facility] Last Admin: 05/24/23 08:10 Dose: 200 mg Lorazepam (Lorazepam 1 Mg Tablet) 2 mg PO BEDTIME [facility] Last Admin: 05/23/23 21:27 Dose: 2 mg Magnesium Hydroxide (Milk Of Magnesia 30 Ml Oral.Susp) 30 ml PO DAILY PRN PRN Reason: Constipation Last Admin: 05/12/23 10:37 Dose: 30 ml Metronidazole (Metronidazole 500 Mg Tablet) 500 mg PO Q12H [facility] Stop: 05/28/23 23:59 Last Admin: 05/24/23 08:10 Dose: 500 mg Nicotine Polacrilex (Nicotine Polacrilex 2 Mg Gum) 4 mg BUCCAL Q2H PRN PRN Reason: Nicotine Cravings Last Admin: 05/22/23 10:23 Dose: 4 mg Olanzapine (Olanzapine 10 Mg Tablet) 10 mg PO TID [facility] Last Admin: 05/24/23 14:28 Dose: 10 mg Olanzapine (Olanzapine Odt 10 Mg Tab.Rapdis) 10 mg TRANSLINGU BID PRN PRN Reason: agitation Last Admin: 05/16/23 12:46 Dose: 10 mg Polyethylene Glycol (Polyethylene Glycol 3350 17 Gm Powd.Pack) 17 gm PO DAILY [facility] Last Admin: 05/24/23 08:10 Dose: 17 gm Psyllium Hydrophilic Mucilloid (Psyllium Seed 3.7 Gm Packet) 3.7 gm PO BEDTIME [facility] Last Admin: 05/23/23 21:27 Dose: 3.7 gm Senna (Senna [place] Extract Oral Syrup 15 Ml Syrup) 15 ml PO BEDTIME [facility] Last Admin: 05/23/23 21:27 Dose: 15 ml Trazodone HCl (Trazodone Hcl 25 Mg Halftab) 25 mg PO BEDTIME MRX1 PRN PRN Reason: Insomnia Last Admin: 05/19/23 02:02 Dose: 25 mg Allergies Allergies Allergy/AdvReac Type Severity Reaction Status Date / Time Penicillins Allergy Unknown Unknown Verified 05/03/23 22:31 Assessment & Plan Assessment & Plan (1) Bipolar I disorder with nakia: Status: Acute Code(s): F31.10 - Bipolar disorder, current episode manic without psychotic features, unspecified Plan 05/04: continue zyprexa 10 TID. add VPA 1000 mg QHS. 05/05: continue current mgmt. per pt's brother, she is unable to return to her apartment and she has been off meds for about 3 years. 05/06 continue same treatment adding Zydis p.r.n. for agitation. 05/07 continue same treatment 05/08: Guarded, brief. Pt stated, I'm okay. I don't need anything. I'm trying to sleep . denies SI. Continue current tx plan. 05/09: Continue current tx plan. 05/10: less manic than at admission, remains psychotic. check VPA level and labs tonight. 05/11: pt refused labs last night and also VPA. today states she will take meds after the importance is explained to her. seems desirous of discharge. remains delusional, less labile. 05/12: check labs tonight. concern pt is developing a delirium, ammonia level would be helpful. poorer hygiene, more withdrawn, dearth of thoughts. T/C use of tegretol versus lithium if ammonia level proves elevated. 05/13 continue tx. Isolated refused medication last night she is noted to be tremulous unclear if relates to lithium being started 450 b.i.d. may be too much starting dose would lowered to 05/14 continue tx. 05/15: DC VPA order, start lithium. VPA may have caused delirium, which since stop of VPA last monday appears to have improved substantially. continue to encourage compliance with medication. 05/16: continue current mgmt. remains psychotic, labile, and unpredictable. May 17 Patient seems less labile she remains quite psychotic she is tremulous lithium dose may be lowered and increase more gradually patient did refuse last night unclear if responding to olanzapine will most likely need more extensive treatment to get response given her lack of treatment for an extended period of time 05/19: slower and more organized since starting tegretol yesterday. DC lithium as discussed yesterday. continue tegretol. ativan 2 mg QHS added for insomnia. 05/20: Diflucan 150 mg x 1 for presumptive vaginal candidiasis. Continue current treatment plan. 05/21: Flagyl 500 mg BID for 7 days. Otherwise, continue current management and treatment plan. 05/22 continue tx. 05/23 contineu tx. 05/24 sleep has been disruptive. increase and scheduled trazodone 50mg po qhs. change olanzapine instead of 10mg po TID, to 10mg po daily and 20mg po qhs. Reason for continued inpatient stay Substantial Risk for: inability to function Time Spent With Patient Time: Total time managing care of this patient today ____ minutes.
[2023-05-24 16:59] LABS: COVID-19 Test Negative (Negative); IDNOW Serial# 08D9AD1C
[2023-05-24] MEDS: LORazepam 1 MG TABLET 2 MG PO (21:21)
[2023-05-24] MEDS: Psyllium seed 3.7 GM PACKET PO (21:21)
[2023-05-24] MEDS: OLANZapine 10 MG TABLET 20 MG PO (21:21)
[2023-05-24] MEDS: traZODone HCL 50 MG TABLET PO (21:22)
[2023-05-24] MEDS: Nicotine Polacrilex 2 MG GUM 4 MG BUCCAL (22:47)
[2023-05-25] MEDS: Nicotine Polacrilex 2 MG GUM 4 MG BUCCAL (06:59)
[2023-05-25 07:00] VITALS: BMI 29.7
[2023-05-25 08:35] VITALS: BP 142/65; PULSE 108; RESP 16; TEMP 36.7; O2SAT 96
[2023-05-25] MEDS: metroNIDAZOLE 500 MG TABLET PO ×2 (08:38→21:05)
[2023-05-25] MEDS: carBAMazepine ER 200 MG TAB.ER.12H PO ×2 (08:38→21:06)
[2023-05-25] MEDS: polyethylene glycoL 3350 17 GM POWD.PACK PO (08:39)
[2023-05-25] MEDS: OLANZapine 10 MG TABLET PO (08:39)
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
[2023-05-25] MEDS: OLANZapine 10 MG TABLET 20 MG PO (21:05)
[2023-05-25] MEDS: LORazepam 1 MG TABLET 2 MG PO (21:06)
[2023-05-25] MEDS: traZODone HCL 50 MG TABLET PO (21:06)
[2023-05-25] MEDS: Psyllium seed 3.7 GM PACKET PO (21:07)
[2023-05-26 08:15] VITALS: BP 125/60; PULSE 101; RESP 16; TEMP 36; O2SAT 99
[2023-05-26] MEDS: polyethylene glycoL 3350 17 GM POWD.PACK PO (08:18)
[2023-05-26] MEDS: metroNIDAZOLE 500 MG TABLET PO (08:19)
[2023-05-26] MEDS: OLANZapine 10 MG TABLET PO (08:19)
[2023-05-26] MEDS: carBAMazepine ER 200 MG TAB.ER.12H PO (08:19)
--- NOTE | 2023-05-26 08:57 | HO.PSYCHPN ---
Subjective Subjective Date of Service: 05/26/23 Reason For Visit: Schizoaffective Disorder Subjective Notes: Conditional Voluntary Interim History: Reviewed with . Labile. Pt reports not sleeping well last night. When T/W asked pt how she was feeling pt stated, I feel fine. I don't want to talk about my mood. You can just fuck off. You won't do anything for me ; then proceeded to leave unit office. Pt later came up to T/W and apologized for swearing. Medication Compliance: Yes Side effects from medications: No Attending Groups: No Review of Systems Constitutional: Reports as per HPI Eyes: Reports as per HPI Reports as per HPI Cardiovascular: Reports as per HPI Respiratory: Reports as per HPI Gastrointestinal: Reports as per HPI Genitourinary: Reports as per HPI Musculoskeletal: Reports as per HPI Skin/Breast: Reports as per HPI Reports as per HPI Psychiatric: Reports as per HPI Endocrine: Reports as per HPI Hematologic/Lymphatic: Reports as per HPI Allergic/Immunologic: Reports as per HPI Mental Status Exam Mental Status Exam Narrative: Pt is alert and oriented; behavior is irritable,guarded; dressed in casual attire; mood is described as fine ; eye contact appropriate; Speech is normal rate, volume and prosody and not pressured; labile. keeping to self. Diagnostics Vital Signs (24Hr): BMI result Body Mass Index 29.7 Labs Labs: Laboratory Results - last 48 hr 05/24/23 16:28 COVID-19 ([facility]) Negative COVID-19 Clin Com See Note Medications Medications Current Medications Acetaminophen (Acetaminophen 325 Mg Tablet) 650 mg PO Q6H PRN PRN Reason: Headache/Pain Mild Scale (1-3) Al Hydroxide/Mg Hydroxide (Magnesium Hydrox/Alum Hydrox 30 Ml Oral.Susp) 30 ml PO Q6H PRN PRN Reason: Heartburn/Nausea Last Admin: 05/23/23 13:54 Dose: 30 ml Benzocaine (Throat Lozenge, Medicated Lozenge) 1 lozenge MUCOUS MEM Q2H PRN PRN Reason: Sore Throat Last Admin: 05/24/23 15:18 Dose: 1 lozenge Carbamazepine (Carbamazepine Er 200 Mg Tab.Er.12h) 200 mg PO BID [facility] Last Admin: 05/26/23 08:19 Dose: 200 mg Lorazepam (Lorazepam 1 Mg Tablet) 2 mg PO BEDTIME [facility] Last Admin: 05/25/23 21:06 Dose: 2 mg Magnesium Hydroxide (Milk Of Magnesia 30 Ml Oral.Susp) 30 ml PO DAILY PRN PRN Reason: Constipation Last Admin: 05/12/23 10:37 Dose: 30 ml Metronidazole (Metronidazole 500 Mg Tablet) 500 mg PO Q12H [facility] Stop: 05/28/23 23:59 Last Admin: 05/26/23 08:19 Dose: 500 mg Nicotine Polacrilex (Nicotine Polacrilex 2 Mg Gum) 4 mg BUCCAL Q2H PRN PRN Reason: Nicotine Cravings Last Admin: 05/25/23 06:59 Dose: 4 mg Olanzapine (Olanzapine Odt 10 Mg Tab.Rapdis) 10 mg TRANSLINGU BID PRN PRN Reason: agitation Last Admin: 05/16/23 12:46 Dose: 10 mg Olanzapine (Olanzapine 10 Mg Tablet) 10 mg PO DAILY [facility] Last Admin: 05/26/23 08:19 Dose: 10 mg Olanzapine (Olanzapine 10 Mg Tablet) 20 mg PO BEDTIME [facility] Last Admin: 05/25/23 21:05 Dose: 20 mg Polyethylene Glycol (Polyethylene Glycol 3350 17 Gm Powd.Pack) 17 gm PO DAILY [facility] Last Admin: 05/26/23 08:18 Dose: 17 gm Psyllium Hydrophilic Mucilloid (Psyllium Seed 3.7 Gm Packet) 3.7 gm PO BEDTIME [facility] Last Admin: 05/25/23 21:07 Dose: 3.7 gm Senna (Senna [place] Extract Oral Syrup 15 Ml Syrup) 15 ml PO BEDTIME [facility] Last Admin: 05/25/23 21:00 Dose: 15 ml Trazodone HCl (Trazodone Hcl 50 Mg Tablet) 50 mg PO BEDTIME [facility] Last Admin: 05/25/23 21:06 Dose: 50 mg Allergies Allergies Allergy/AdvReac Type Severity Reaction Status Date / Time Penicillins Allergy Unknown Unknown Verified 05/03/23 22:31 Assessment & Plan Assessment & Plan (1) Schizophrenia, paranoid: Status: Acute Code(s): F20.0 - Paranoid schizophrenia Plan 05/04: continue zyprexa 10 TID. add VPA 1000 mg QHS. 05/05: continue current mgmt. per pt's brother, she is unable to return to her apartment and she has been off meds for about 3 years. 05/06 continue same treatment adding Zydis p.r.n. for agitation. 05/07 continue same treatment 05/08: Guarded, brief. Pt stated, I'm okay. I don't need anything. I'm trying to sleep . denies SI. Continue current tx plan. 05/09: Continue current tx plan. 05/10: less manic than at admission, remains psychotic. check VPA level and labs tonight. 05/11: pt refused labs last night and also VPA. today states she will take meds after the importance is explained to her. seems desirous of discharge. remains delusional, less labile. 05/12: check labs tonight. concern pt is developing a delirium, ammonia level would be helpful. poorer hygiene, more withdrawn, dearth of thoughts. T/C use of tegretol versus lithium if ammonia level proves elevated. 05/13 continue tx. Isolated refused medication last night she is noted to be tremulous unclear if relates to lithium being started 450 b.i.d. may be too much starting dose would lowered to 05/14 continue tx. 05/15: DC VPA order, start lithium. VPA may have caused delirium, which since stop of VPA last monday appears to have improved substantially. continue to encourage compliance with medication. 05/16: continue current mgmt. remains psychotic, labile, and unpredictable. May 17 Patient seems less labile she remains quite psychotic she is tremulous lithium dose may be lowered and increase more gradually patient did refuse last night unclear if responding to olanzapine will most likely need more extensive treatment to get response given her lack of treatment for an extended period of time 05/19: slower and more organized since starting tegretol yesterday. DC lithium as discussed yesterday. continue tegretol. ativan 2 mg QHS added for insomnia. 05/20: Diflucan 150 mg x 1 for presumptive vaginal candidiasis. Continue current treatment plan. 05/21: Flagyl 500 mg BID for 7 days. Otherwise, continue current management and treatment plan. 05/22 continue tx. 05/23 contineu tx. 05/24 sleep has been disruptive. increase and scheduled trazodone 50mg po qhs. change olanzapine instead of 10mg po TID, to 10mg po daily and 20mg po qhs. 05/25 still significantly paranoid and this is affecting her insight and ability to work with SW to secure housing and safe dispo. She has been on high dose of olanzapine with limited efficacy may need to switch to another antipsychotic 05/26: Labile. Pt reports not sleeping well last night. When T/W asked pt how she was feeling pt stated, I feel fine. I don't want to talk about my mood. You can just fuck off. You won't do anything for me ; then proceeded to leave unit office. Pt later came up to T/W and apologized for swearing. Continue current tx plan. Patient educated on: medication risk/benefits Informed Consent: understands Reason for continued inpatient stay Substantial Risk for: med/psych decompensation Time Spent With Patient Time: Total time managing care of this patient today _20___ minutes.
[2023-05-26 20:35] VITALS: RESP 18
[2023-05-27 08:25] VITALS: BP 124/79; PULSE 91; RESP 16; TEMP 36.2; O2SAT 96
[2023-05-27] MEDS: carBAMazepine ER 200 MG TAB.ER.12H PO (08:25)
[2023-05-27] MEDS: OLANZapine 10 MG TABLET PO (08:26)
[2023-05-27] MEDS: polyethylene glycoL 3350 17 GM POWD.PACK PO (08:26)
[2023-05-27] MEDS: metroNIDAZOLE 500 MG TABLET PO (08:26)
--- NOTE | 2023-05-27 10:50 | PC.NURSE ---
Submitted 3 day notice, up on Mon05/31/23. Treatment team notified: Dr Alegre, Vilma MICHAUD, Chester Duque, utilization review.
[2023-05-27] MEDS: LORazepam 1 MG TABLET 2 MG PO (19:06)
[2023-05-27 20:20] VITALS: RESP 16
--- NOTE | 2023-05-27 21:29 | P.PNPSI_ITS ---
Subjective Subjective Date of Service: 05/27/23 Reason For Visit: Schizoaffective Disorder Interim History: calm, psychotic. discuss need to check tegretol level and labs, to be drawn tonight. pt expresses understanding and intent. agrees to take 2 mg ativan 1 hour prior to blood draw as needed. per staff, slept 7 hours overnight. dep 2, anx 0. labile. refused HS meds last night. Mental Status Exam Mental Status Exam Narrative: Pt is alert and oriented; behavior is irritable,guarded; dressed in casual attire; mood is described as fine ; eye contact appropriate; Speech is normal rate, volume and prosody and not pressured; labile. keeping to self. Diagnostics Vital Signs (24Hr): Vital Signs - 24 hr 05/27/23 08:25 Temperature 97.1 F Pulse Rate 91 Respiratory Rate 16 Blood Pressure 124/79 Pulse Oximetry 96 Oxygen Delivery Method Room Air BMI result Body Mass Index 29.7 Medications Medications Current Medications Acetaminophen (Acetaminophen 325 Mg Tablet) 650 mg PO Q6H PRN PRN Reason: Headache/Pain Mild Scale (1-3) Al Hydroxide/Mg Hydroxide (Magnesium Hydrox/Alum Hydrox 30 Ml Oral.Susp) 30 ml PO Q6H PRN PRN Reason: Heartburn/Nausea Last Admin: 05/23/23 13:54 Dose: 30 ml Benzocaine (Throat Lozenge, Medicated Lozenge) 1 lozenge MUCOUS MEM Q2H PRN PRN Reason: Sore Throat Last Admin: 05/24/23 15:18 Dose: 1 lozenge Carbamazepine (Carbamazepine Er 200 Mg Tab.Er.12h) 200 mg PO BID [facility] Last Admin: 05/27/23 08:25 Dose: 200 mg Lorazepam (Lorazepam 1 Mg Tablet) 2 mg PO BEDTIME [facility] Last Admin: 05/27/23 19:06 Dose: 2 mg Lorazepam (Lorazepam 1 Mg Tablet) 2 mg PO DAILY PRN PRN Reason: anxiety Magnesium Hydroxide (Milk Of Magnesia 30 Ml Oral.Susp) 30 ml PO DAILY PRN PRN Reason: Constipation Last Admin: 05/12/23 10:37 Dose: 30 ml Metronidazole (Metronidazole 500 Mg Tablet) 500 mg PO Q12H [facility] Stop: 05/28/23 23:59 Last Admin: 05/27/23 08:26 Dose: 500 mg Nicotine Polacrilex (Nicotine Polacrilex 2 Mg Gum) 4 mg BUCCAL Q2H PRN PRN Reason: Nicotine Cravings Last Admin: 05/25/23 06:59 Dose: 4 mg Olanzapine (Olanzapine Odt 10 Mg Tab.Rapdis) 10 mg TRANSLINGU BID PRN PRN Reason: agitation Last Admin: 05/16/23 12:46 Dose: 10 mg Olanzapine (Olanzapine 10 Mg Tablet) 10 mg PO DAILY [facility] Last Admin: 05/27/23 08:26 Dose: 10 mg Olanzapine (Olanzapine 10 Mg Tablet) 20 mg PO BEDTIME [facility] Last Admin: 05/26/23 22:09 Dose: Not Given Polyethylene Glycol (Polyethylene Glycol 3350 17 Gm Powd.Pack) 17 gm PO DAILY [facility] Last Admin: 05/27/23 08:26 Dose: 17 gm Psyllium Hydrophilic Mucilloid (Psyllium Seed 3.7 Gm Packet) 3.7 gm PO BEDTIME [facility] Last Admin: 05/26/23 22:09 Dose: Not Given Senna (Senna [place] Extract Oral Syrup 15 Ml Syrup) 15 ml PO BEDTIME [facility] Last Admin: 05/26/23 22:09 Dose: Not Given Trazodone HCl (Trazodone Hcl 50 Mg Tablet) 50 mg PO BEDTIME [facility] Last Admin: 05/26/23 22:09 Dose: Not Given Allergies Allergies Allergy/AdvReac Type Severity Reaction Status Date / Time Penicillins Allergy Unknown Unknown Verified 05/03/23 22:31 Assessment & Plan Assessment & Plan (1) Schizophrenia, paranoid: Status: Acute Code(s): F20.0 - Paranoid schizophrenia Plan 05/04: continue zyprexa 10 TID. add VPA 1000 mg QHS. 05/05: continue current mgmt. per pt's brother, she is unable to return to her apartment and she has been off meds for about 3 years. 05/06 continue same treatment adding Zydis p.r.n. for agitation. 05/07 continue same treatment 05/08: Guarded, brief. Pt stated, I'm okay. I don't need anything. I'm trying to sleep . denies SI. Continue current tx plan. 05/09: Continue current tx plan. 05/10: less manic than at admission, remains psychotic. check VPA level and labs tonight. 05/11: pt refused labs last night and also VPA. today states she will take meds after the importance is explained to her. seems desirous of discharge. remains delusional, less labile. 05/12: check labs tonight. concern pt is developing a delirium, ammonia level would be helpful. poorer hygiene, more withdrawn, dearth of thoughts. T/C use of tegretol versus lithium if ammonia level proves elevated. 05/13 continue tx. Isolated refused medication last night she is noted to be tremulous unclear if relates to lithium being started 450 b.i.d. may be too much starting dose would lowered to 05/14 continue tx. 05/15: DC VPA order, start lithium. VPA may have caused delirium, which since stop of VPA last monday appears to have improved substantially. continue to encourage compliance with medication. 05/16: continue current mgmt. remains psychotic, labile, and unpredictable. May 17 Patient seems less labile she remains quite psychotic she is tremulous lithium dose may be lowered and increase more gradually patient did refuse last night unclear if responding to olanzapine will most likely need more extensive treatment to get response given her lack of treatment for an extended period of time 05/19: slower and more organized since starting tegretol yesterday. DC lithium as discussed yesterday. continue tegretol. ativan 2 mg QHS added for insomnia. 05/20: Diflucan 150 mg x 1 for presumptive vaginal candidiasis. Continue current treatment plan. 05/21: Flagyl 500 mg BID for 7 days. Otherwise, continue current management and treatment plan. 05/22 continue tx. 05/23 contineu tx. 05/24 sleep has been disruptive. increase and scheduled trazodone 50mg po qhs. change olanzapine instead of 10mg po TID, to 10mg po daily and 20mg po qhs. 05/25 still significantly paranoid and this is affecting her insight and ability to work with SW to secure housing and safe dispo. She has been on high dose of olanzapine with limited efficacy may need to switch to another antipsychotic 05/26: Labile. Pt reports not sleeping well last night. When T/W asked pt how she was feeling pt stated, I feel fine. I don't want to talk about my mood. You can just fuck off. You won't do anything for me ; then proceeded to leave unit office. Pt later came up to T/W and apologized for swearing. Continue current tx plan. 05/27: calm, cooperative. informed of plan to check labs tonight. Reason for continued inpatient stay Substantial Risk for: harm to self, inability to function and rapid decompensation Time Spent With Patient Time: Total time managing care of this patient today ____ minutes.
[2023-05-28] MEDS: Psyllium seed 3.7 GM PACKET PO ×2 (01:11→21:26)
[2023-05-28] MEDS: metroNIDAZOLE 500 MG TABLET PO ×3 (01:11→21:25)
[2023-05-28] MEDS: OLANZapine 10 MG TABLET 20 MG PO ×2 (01:11→21:25)
[2023-05-28] MEDS: traZODone HCL 50 MG TABLET PO ×2 (01:11→21:25)
[2023-05-28 08:11] LABS: Hematocrit 34.6 % (37.0-47.0); Hemoglobin 10.9 g/dl (12.0-16.0); Mean Corpuscular HGB Conc 31.5 g/dl (31.0-35.0); Mean Corpuscular Hemoglobin 29.7 pg (27.0-33.0); Mean Corpuscular Volume 94.3 fL (80.0-98.0); Mean Platelet Volume 10.8 fL (9.4-12.3); Platelet Count 213 X10*3/uL (160-400); Red Blood Count 3.67 X10*6/uL (4.20-5.50); Red Cell Distribution Width 14.9 % (11.0-16.0); White Blood Count 5.7 X10*3/uL (4.8-10.8)
[2023-05-28 08:20] VITALS: BP 122/56; PULSE 96; RESP 16; TEMP 36; O2SAT 96
[2023-05-28] MEDS: carBAMazepine ER 100 MG TAB.ER.12H 300 MG PO ×2 (08:25→21:25)
[2023-05-28] MEDS: OLANZapine 10 MG TABLET PO (08:26)
[2023-05-28] MEDS: polyethylene glycoL 3350 17 GM POWD.PACK PO (08:27)
[2023-05-28 08:39] LABS: Alanine Aminotransferase 48 U/L (0-31); Albumin Level 3.5 g/dL (3.5-5.0); Alkaline Phosphatase 95 U/L (39-117); Anion Gap 16 (12-20); Aspartate Amino Transferase 21 U/L (5-31); Bilirubin Direct < 0.2 mg/dL (0.0-0.5); Bilirubin Total 0.2 mg/dL (0.0-1.0); Blood Urea Nitrogen 25 mg/dL (9-16); Carbamazepine Tegretol 5.1 mcg/mL (5.0-12.0); Carbon Dioxide 25 mmol/L (22-29); Chloride 106 mmol/L (96-108); Creatinine Clr Calc Pharmacy 74.8; Estimated Glomerular Filt Rate > 60; Glucose Fasting 113 mg/dL (60-99); Potassium 4.6 mmol/L (3.3-5.1); Sodium 142 mmol/L (135-145); Total Protein 6.5 g/dL (6.5-8.0)
--- NOTE | 2023-05-28 18:15 | HO.PSYCHPN ---
Subjective Subjective Date of Service: 05/28/23 Reason For Visit: Schizoaffective Disorder Interim History: appears somewhat dulled. cooperative with interview. refused labs last night but for inexplicable reasons allowed them this morning. reviewed lab results and med changes. asking about discharge timing. per staff, up x2 in the night for snacks. Mental Status Exam Mental Status Exam Narrative: Pt is alert and oriented; behavior is calm,guarded; dressed in casual attire; eye contact appropriate; Speech is decr rate, volume and prosody and not pressured; non-labile. keeping to self. no SI/HI/AVH expressed. Diagnostics Vital Signs (24Hr): Vital Signs - 24 hr 05/27/23 20:20 05/28/23 08:20 Temperature 96.8 F Pulse Rate 96 Respiratory Rate 16 16 Blood Pressure 122/56 L Pulse Oximetry 96 Oxygen Delivery Method Room Air BMI result Body Mass Index 29.7 Labs 05/28/23 08:03 05/28/23 08:03 Labs: Laboratory Results - last 48 hr 05/28/23 08:03 WBC 5.7 RBC 3.67 L Hgb 10.9 L Hct 34.6 L MCV 94.3 MCH 29.7 MCHC 31.5 RDW 14.9 Plt Count 213 MPV 10.8 Absolute Nucleated RBC 0.000 Nucleated RBC % (auto) 0.0 Sodium 142 Potassium 4.6 Chloride 106 Carbon Dioxide 25 Anion Gap 16 BUN 25 H Creatinine 0.76 Estim Creat Clear Calc 74.8 Estimated GFR > 60 Fasting Glucose 113 H Calcium 9.0 Total Bilirubin 0.2 Direct Bilirubin < 0.2 AST 21 ALT 48 H Alkaline Phosphatase 95 Total Protein 6.5 Albumin 3.5 Carbamazepine 5.1 Medications Medications Current Medications Acetaminophen (Acetaminophen 325 Mg Tablet) 650 mg PO Q6H PRN PRN Reason: Headache/Pain Mild Scale (1-3) Al Hydroxide/Mg Hydroxide (Magnesium Hydrox/Alum Hydrox 30 Ml Oral.Susp) 30 ml PO Q6H PRN PRN Reason: Heartburn/Nausea Last Admin: 05/23/23 13:54 Dose: 30 ml Benzocaine (Throat Lozenge, Medicated Lozenge) 1 lozenge MUCOUS MEM Q2H PRN PRN Reason: Sore Throat Last Admin: 05/24/23 15:18 Dose: 1 lozenge Carbamazepine (Carbamazepine Er 100 Mg Tab.Er.12h) 300 mg PO BID [facility] Last Admin: 05/28/23 08:25 Dose: 300 mg Lorazepam (Lorazepam 1 Mg Tablet) 2 mg PO BEDTIME [facility] Last Admin: 05/27/23 19:06 Dose: 2 mg Lorazepam (Lorazepam 1 Mg Tablet) 2 mg PO DAILY PRN PRN Reason: anxiety Magnesium Hydroxide (Milk Of Magnesia 30 Ml Oral.Susp) 30 ml PO DAILY PRN PRN Reason: Constipation Last Admin: 05/12/23 10:37 Dose: 30 ml Metronidazole (Metronidazole 500 Mg Tablet) 500 mg PO Q12H [facility] Stop: 05/28/23 23:59 Last Admin: 05/28/23 08:26 Dose: 500 mg Nicotine Polacrilex (Nicotine Polacrilex 2 Mg Gum) 4 mg BUCCAL Q2H PRN PRN Reason: Nicotine Cravings Last Admin: 05/25/23 06:59 Dose: 4 mg Olanzapine (Olanzapine Odt 10 Mg Tab.Rapdis) 10 mg TRANSLINGU BID PRN PRN Reason: agitation Last Admin: 05/16/23 12:46 Dose: 10 mg Olanzapine (Olanzapine 10 Mg Tablet) 10 mg PO DAILY [facility] Last Admin: 05/28/23 08:26 Dose: 10 mg Olanzapine (Olanzapine 10 Mg Tablet) 20 mg PO BEDTIME [facility] Last Admin: 05/28/23 01:11 Dose: 20 mg Polyethylene Glycol (Polyethylene Glycol 3350 17 Gm Powd.Pack) 17 gm PO DAILY [facility] Last Admin: 05/28/23 08:27 Dose: 17 gm Psyllium Hydrophilic Mucilloid (Psyllium Seed 3.7 Gm Packet) 3.7 gm PO BEDTIME [facility] Last Admin: 05/28/23 01:11 Dose: 3.7 gm Senna (Senna [place] Extract Oral Syrup 15 Ml Syrup) 15 ml PO BEDTIME [facility] Last Admin: 05/28/23 01:11 Dose: 15 ml Trazodone HCl (Trazodone Hcl 50 Mg Tablet) 50 mg PO BEDTIME [facility] Last Admin: 05/28/23 01:11 Dose: 50 mg Allergies Allergies Allergy/AdvReac Type Severity Reaction Status Date / Time Penicillins Allergy Unknown Unknown Verified 05/03/23 22:31 Assessment & Plan Assessment & Plan (1) Schizophrenia, paranoid: Status: Acute Code(s): F20.0 - Paranoid schizophrenia Plan 05/04: continue zyprexa 10 TID. add VPA 1000 mg QHS. 05/05: continue current mgmt. per pt's brother, she is unable to return to her apartment and she has been off meds for about 3 years. 05/06 continue same treatment adding Zydis p.r.n. for agitation. 05/07 continue same treatment 05/08: Guarded, brief. Pt stated, I'm okay. I don't need anything. I'm trying to sleep . denies SI. Continue current tx plan. 05/09: Continue current tx plan. 05/10: less manic than at admission, remains psychotic. check VPA level and labs tonight. 05/11: pt refused labs last night and also VPA. today states she will take meds after the importance is explained to her. seems desirous of discharge. remains delusional, less labile. 05/12: check labs tonight. concern pt is developing a delirium, ammonia level would be helpful. poorer hygiene, more withdrawn, dearth of thoughts. T/C use of tegretol versus lithium if ammonia level proves elevated. 05/13 continue tx. Isolated refused medication last night she is noted to be tremulous unclear if relates to lithium being started 450 b.i.d. may be too much starting dose would lowered to 05/14 continue tx. 05/15: DC VPA order, start lithium. VPA may have caused delirium, which since stop of VPA last monday appears to have improved substantially. continue to encourage compliance with medication. 05/16: continue current mgmt. remains psychotic, labile, and unpredictable. May 17 Patient seems less labile she remains quite psychotic she is tremulous lithium dose may be lowered and increase more gradually patient did refuse last night unclear if responding to olanzapine will most likely need more extensive treatment to get response given her lack of treatment for an extended period of time 05/19: slower and more organized since starting tegretol yesterday. DC lithium as discussed yesterday. continue tegretol. ativan 2 mg QHS added for insomnia. 05/20: Diflucan 150 mg x 1 for presumptive vaginal candidiasis. Continue current treatment plan. 05/21: Flagyl 500 mg BID for 7 days. Otherwise, continue current management and treatment plan. 05/22 continue tx. 05/23 contineu tx. 05/24 sleep has been disruptive. increase and scheduled trazodone 50mg po qhs. change olanzapine instead of 10mg po TID, to 10mg po daily and 20mg po qhs. 05/25 still significantly paranoid and this is affecting her insight and ability to work with SW to secure housing and safe dispo. She has been on high dose of olanzapine with limited efficacy may need to switch to another antipsychotic 05/26: Labile. Pt reports not sleeping well last night. When T/W asked pt how she was feeling pt stated, I feel fine. I don't want to talk about my mood. You can just fuck off. You won't do anything for me ; then proceeded to leave unit office. Pt later came up to T/W and apologized for swearing. Continue current tx plan. 23: calm, cooperative. informed of plan to check labs tonight. 4: appears somewhat dulled, slowed, slothful today. tegretol was increased to 300 BID this morning. labs this morning unremarkable, tegretol about 5. continue current mgmt. Reason for continued inpatient stay Substantial Risk for: harm to self, inability to function and rapid decompensation Time Spent With Patient Time: Total time managing care of this patient today ____ minutes.
[2023-05-28 21:00] VITALS: BP 114/58; PULSE 78; RESP 16; TEMP 36.4; O2SAT 95
[2023-05-28] MEDS: LORazepam 1 MG TABLET 2 MG PO (21:25)
[2023-05-29] MEDS: carBAMazepine ER 100 MG TAB.ER.12H 300 MG PO ×2 (08:59→20:57)
[2023-05-29] MEDS: OLANZapine 10 MG TABLET PO (08:59)
[2023-05-29] MEDS: polyethylene glycoL 3350 17 GM POWD.PACK PO (09:00)
--- NOTE | 2023-05-29 14:24 | HO.PSYCHPN ---
Subjective Subjective Date of Service: 05/29/23 Reason For Visit: Schizoaffective Disorder Interim History: mood good. working on housing with DEVAUGHN and christine. no other complaints or requests. per staff, 3-day notice up . concerned about newly inverted nipples. up x 3 overnight. snacking. slept [id number]. Mental Status Exam Mental Status Exam Narrative: Pt is alert and oriented; behavior is calm,guarded; dressed in casual attire; eye contact appropriate; Speech is decr rate, volume and prosody and not pressured; non-labile. keeping to self. no SI/HI/AVH expressed. Diagnostics Vital Signs (24Hr): Vital Signs - 24 hr 05/28/23 21:00 Temperature 97.5 F Pulse Rate 78 Respiratory Rate 16 Blood Pressure 114/58 L Pulse Oximetry 95 Oxygen Delivery Method Room Air BMI result Body Mass Index 29.7 Labs 05/28/23 08:03 05/28/23 08:03 Labs: Laboratory Results - last 48 hr 05/28/23 08:03 WBC 5.7 RBC 3.67 L Hgb 10.9 L Hct 34.6 L MCV 94.3 MCH 29.7 MCHC 31.5 RDW 14.9 Plt Count 213 MPV 10.8 Absolute Nucleated RBC 0.000 Nucleated RBC % (auto) 0.0 Sodium 142 Potassium 4.6 Chloride 106 Carbon Dioxide 25 Anion Gap 16 BUN 25 H Creatinine 0.76 Estim Creat Clear Calc 74.8 Estimated GFR > 60 Fasting Glucose 113 H Calcium 9.0 Total Bilirubin 0.2 Direct Bilirubin < 0.2 AST 21 ALT 48 H Alkaline Phosphatase 95 Total Protein 6.5 Albumin 3.5 Carbamazepine 5.1 Medications Medications Current Medications Acetaminophen (Acetaminophen 325 Mg Tablet) 650 mg PO Q6H PRN PRN Reason: Headache/Pain Mild Scale (1-3) Al Hydroxide/Mg Hydroxide (Magnesium Hydrox/Alum Hydrox 30 Ml Oral.Susp) 30 ml PO Q6H PRN PRN Reason: Heartburn/Nausea Last Admin: 05/23/23 13:54 Dose: 30 ml Benzocaine (Throat Lozenge, Medicated Lozenge) 1 lozenge MUCOUS MEM Q2H PRN PRN Reason: Sore Throat Last Admin: 05/24/23 15:18 Dose: 1 lozenge Carbamazepine (Carbamazepine Er 100 Mg Tab.Er.12h) 300 mg PO BID GLENN Last Admin: 05/29/23 08:59 Dose: 300 mg Loratadine (Loratadine 10 Mg Tablet) 10 mg PO DAILY [facility] Last Admin: 05/29/23 11:22 Dose: Not Given Lorazepam (Lorazepam 1 Mg Tablet) 2 mg PO BEDTIME [facility] Last Admin: 05/28/23 21:25 Dose: 2 mg Lorazepam (Lorazepam 1 Mg Tablet) 2 mg PO DAILY PRN PRN Reason: anxiety Magnesium Hydroxide (Milk Of Magnesia 30 Ml Oral.Susp) 30 ml PO DAILY PRN PRN Reason: Constipation Last Admin: 05/12/23 10:37 Dose: 30 ml Nicotine Polacrilex (Nicotine Polacrilex 2 Mg Gum) 4 mg BUCCAL Q2H PRN PRN Reason: Nicotine Cravings Last Admin: 05/25/23 06:59 Dose: 4 mg Olanzapine (Olanzapine Odt 10 Mg Tab.Rapdis) 10 mg TRANSLINGU BID PRN PRN Reason: agitation Last Admin: 05/16/23 12:46 Dose: 10 mg Olanzapine (Olanzapine 10 Mg Tablet) 10 mg PO DAILY [facility] Last Admin: 05/29/23 08:59 Dose: 10 mg Olanzapine (Olanzapine 10 Mg Tablet) 20 mg PO BEDTIME [facility] Last Admin: 05/28/23 21:25 Dose: 20 mg Polyethylene Glycol (Polyethylene Glycol 3350 17 Gm Powd.Pack) 17 gm PO DAILY [facility] Last Admin: 05/29/23 09:00 Dose: 17 gm Psyllium Hydrophilic Mucilloid (Psyllium Seed 3.7 Gm Packet) 3.7 gm PO BEDTIME [facility] Last Admin: 05/28/23 21:26 Dose: 3.7 gm Senna (Senna [place] Extract Oral Syrup 15 Ml Syrup) 15 ml PO BEDTIME [facility] Last Admin: 05/28/23 21:26 Dose: 15 ml Trazodone HCl (Trazodone Hcl 50 Mg Tablet) 50 mg PO BEDTIME [facility] Last Admin: 05/28/23 21:25 Dose: 50 mg Allergies Allergies Allergy/AdvReac Type Severity Reaction Status Date / Time Penicillins Allergy Unknown Unknown Verified 05/03/23 22:31 Assessment & Plan Assessment & Plan (1) Schizophrenia, paranoid: Status: Acute Code(s): F20.0 - Paranoid schizophrenia Plan 05/04: continue zyprexa 10 TID. add VPA 1000 mg QHS. 05/05: continue current mgmt. per pt's brother, she is unable to return to her apartment and she has been off meds for about 3 years. 05/06 continue same treatment adding Zydis p.r.n. for agitation. 05/07 continue same treatment 05/08: Guarded, brief. Pt stated, I'm okay. I don't need anything. I'm trying to sleep . denies SI. Continue current tx plan. 05/09: Continue current tx plan. 05/10: less manic than at admission, remains psychotic. check VPA level and labs tonight. 05/11: pt refused labs last night and also VPA. today states she will take meds after the importance is explained to her. seems desirous of discharge. remains delusional, less labile. 05/12: check labs tonight. concern pt is developing a delirium, ammonia level would be helpful. poorer hygiene, more withdrawn, dearth of thoughts. T/C use of tegretol versus lithium if ammonia level proves elevated. 05/13 continue tx. Isolated refused medication last night she is noted to be tremulous unclear if relates to lithium being started 450 b.i.d. may be too much starting dose would lowered to 05/14 continue tx. 05/15: DC VPA order, start lithium. VPA may have caused delirium, which since stop of VPA last monday appears to have improved substantially. continue to encourage compliance with medication. 05/16: continue current mgmt. remains psychotic, labile, and unpredictable. May 17 Patient seems less labile she remains quite psychotic she is tremulous lithium dose may be lowered and increase more gradually patient did refuse last night unclear if responding to olanzapine will most likely need more extensive treatment to get response given her lack of treatment for an extended period of time 05/19: slower and more organized since starting tegretol yesterday. DC lithium as discussed yesterday. continue tegretol. ativan 2 mg QHS added for insomnia. 05/20: Diflucan 150 mg x 1 for presumptive vaginal candidiasis. Continue current treatment plan. 05/21: Flagyl 500 mg BID for 7 days. Otherwise, continue current management and treatment plan. 05/22 continue tx. 05/23 contineu tx. 05/24 sleep has been disruptive. increase and scheduled trazodone 50mg po qhs. change olanzapine instead of 10mg po TID, to 10mg po daily and 20mg po qhs. 05/25 still significantly paranoid and this is affecting her insight and ability to work with SW to secure housing and safe dispo. She has been on high dose of olanzapine with limited efficacy may need to switch to another antipsychotic 05/26: Labile. Pt reports not sleeping well last night. When T/W asked pt how she was feeling pt stated, I feel fine. I don't want to talk about my mood. You can just fuck off. You won't do anything for me ; then proceeded to leave unit office. Pt later came up to T/W and apologized for swearing. Continue current tx plan. 05/27: calm, cooperative. informed of plan to check labs tonight. 05/28: appears somewhat dulled, slowed, slothful today. tegretol was increased to 300 BID this morning. labs this morning unremarkable, tegretol about 5. continue current mgmt. 05/29: slightly more energetic today. presents as linear and reasonably logical in brief interview. 3-day up wed. continue current mgmt. Reason for continued inpatient stay Substantial Risk for: harm to self, inability to function and rapid decompensation Time Spent With Patient Time: Total time managing care of this patient today _25___ minutes.
[2023-05-29] MEDS: OLANZapine 10 MG TABLET 20 MG PO (20:58)
[2023-05-29] MEDS: LORazepam 1 MG TABLET 2 MG PO (20:59)
[2023-05-29] MEDS: Psyllium seed 3.7 GM PACKET PO (20:59)
[2023-05-29] MEDS: traZODone HCL 50 MG TABLET PO (20:59)
[2023-05-30 07:15] VITALS: BP 134/65; PULSE 96; RESP 14; TEMP 35.9; O2SAT 94
[2023-05-30] MEDS: OLANZapine 10 MG TABLET PO (08:15)
[2023-05-30] MEDS: carBAMazepine ER 100 MG TAB.ER.12H 300 MG PO ×2 (08:15→21:06)
[2023-05-30] MEDS: Loratadine 10 MG TABLET PO (08:15)
[2023-05-30] MEDS: polyethylene glycoL 3350 17 GM POWD.PACK PO (08:16)
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
[2023-05-30 19:40] VITALS: BP 145/71; PULSE 108; RESP 15; TEMP 35.4; O2SAT 95
[2023-05-30] MEDS: Psyllium seed 3.7 GM PACKET PO (21:04)
[2023-05-30] MEDS: LORazepam 1 MG TABLET PO (21:06)
[2023-05-30] MEDS: traZODone HCL 25 MG HALFTAB PO (21:06)
[2023-05-30] MEDS: OLANZapine 10 MG TABLET 20 MG PO (21:06)
[2023-05-31 07:30] VITALS: BP 118/68; PULSE 91; RESP 16; TEMP 36.2; O2SAT 94
[2023-05-31] MEDS: carBAMazepine ER 100 MG TAB.ER.12H 300 MG PO (07:52)
[2023-05-31] MEDS: OLANZapine 10 MG TABLET PO (07:53)
[2023-05-31] MEDS: polyethylene glycoL 3350 17 GM POWD.PACK PO (07:54)
== END 2023-05-31 11:45 | disposition home or self-care (01) | DRG 885 ==
PROVIDERS: Social Worker; Admitting Provider Psychiatry & Neurology Psychiatry; PCP Internal Medicine; Visit Provider Psychiatry & Neurology Psychiatry
DX: F31.10 Bipolar disorder, current episode manic without psychotic features, unspecified (principal); R41.0 Disorientation, unspecified; T42.6X5A Adverse effect of other antiepileptic and sedative-hypnotic drugs, initial encounter; F20.0 Paranoid schizophrenia; Z20.822 Contact with and (suspected) exposure to COVID-19; Z91.148 Patient's other noncompliance with medication regimen for other reason; Z79.899 Other long term (current) drug therapy; N76.0 Acute vaginitis; B96.89 Other specified bacterial agents as the cause of diseases classified elsewhere
CPT/HCPCS: 0353U; 36415; 80048; 80076; 80156; 80178; 81003; 85027; 87480; 87510; 87635; 87660

== ENCOUNTER → 2023-05-03 20:55 | Outpatient (BNV) | payer MEDICARE, SELFPAY | PROVIDERS: Admitting Provider Psychiatry & Neurology Psychiatry; PCP Internal Medicine; Visit Provider Internal Medicine | DX: Z02.2 Encounter for examination for admission to residential institution (principal); Z91.198 Patient's noncompliance with other medical treatment and regimen for other reason | CPT/HCPCS: 99429 ==

== ENCOUNTER → 2023-05-03 20:55 | Outpatient (BNV) | payer MEDICARE, SELFPAY | PROVIDERS: Admitting Provider Psychiatry & Neurology Psychiatry; PCP Internal Medicine; Visit Provider Psychiatry & Neurology Psychiatry | DX: F31.10 Bipolar disorder, current episode manic without psychotic features, unspecified (principal) | CPT/HCPCS: 99232 ==

== ENCOUNTER → 2023-05-03 20:55 | Outpatient (BNV) | payer MEDICARE, SELFPAY | PROVIDERS: Admitting Provider Psychiatry & Neurology Psychiatry; PCP Internal Medicine; Visit Provider Psychiatry & Neurology Psychiatry | DX: F31.74 Bipolar disorder, in full remission, most recent episode manic (principal); F20.0 Paranoid schizophrenia | CPT/HCPCS: 90792; 99231; 99232; 99239 ==

== ENCOUNTER 2023-07-28 13:55 | Inpatient (IN) | payer MEDICARE, SELFPAY ==
[2023-07-28 15:13] VITALS: BP 126/59; PULSE 110; RESP 17; TEMP 36.3; O2SAT 95
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
--- NOTE | 2023-07-28 18:08 | PC.NURSE ---
Upon admission to the unit, patient was asked her Flu Vaccine status. She states she has not received any vaccinations this year but declined when this nurse offered it to her.
[2023-07-28 21:19] VITALS: BP 129/61; PULSE 106; RESP 17; TEMP 36.4; O2SAT 95
[2023-07-29 07:14] LABS: Alanine Aminotransferase 25 U/L (0-31); Albumin Level 3.7 g/dL (3.5-5.0); Alkaline Phosphatase 74 U/L (39-117); Anion Gap 10 (12-20); Aspartate Amino Transferase 21 U/L (5-31); Bilirubin Total 0.3 mg/dL (0.0-1.0); Blood Urea Nitrogen 15 mg/dL (9-16); Calcium 9.1 mg/dL (8.4-10.2); Carbon Dioxide 25 mmol/L (22-29); Chloride 109 mmol/L (96-108); Cholesterol 197 mg/dL (<200); Estimated Glomerular Filt Rate > 60; Glucose Fasting 107 mg/dL (60-99); HDL Cholesterol 71 mg/dL (>40); LDL Cholesterol Calculated 107 mg/dL (<100); Potassium 4.3 mmol/L (3.3-5.1); Sodium 140 mmol/L (135-145); Total Protein 6.8 g/dL (6.5-8.0); Triglycerides 97 mg/dL (<150)
[2023-07-29 08:35] VITALS: BP 118/73; PULSE 94; RESP 18; TEMP 36.6; O2SAT 97
[2023-07-29] MEDS: Nicotine 14 MG PATCH.TD24 TRANSDERMA (10:53)
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
[2023-07-29] MEDS: Clindamycin HCL 300 MG CAPSULE 600 MG PO ×2 (13:20→20:57)
--- NOTE | 2023-07-29 13:55 | HO.PM.IMCN ---
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 Patient apparently wandered into a vanc stating she was cold, and screaming that her legs, arms, and pelvis were broken. Medical consult for admission H&P. ?Patient states that recently she has been having congestion and a ?runny and drippy nose?, though currently reports she is currently breathing well without rhinorrhea. Also reports severe bilateral groin pain a few days ago when she was admitted to the hospital. States she is currently pain-free. Patient denies any other acute medical complaints at this time. No chest pain/pressure, palpitations. Denies shortness of breath. No fever, chills, nausea, vomiting, abdominal pain. Denies headache. Labs reviewed, grossly unremarkable. Review of Systems Review of Systems: Patient has no acute medical complaints at this time. [facility] Medical History Acute psychosis Social History Household Members: None Housing: Homeless Do you presently have visiting nurse or other home services: No Patient Tobacco Use Status: Never used Tobacco Tobacco use type: Cigarette Smoked in Last 30 Days: Yes e-Cigarette/Vaping Use: Never Used Patient Interested in Nicotine Replacement: Yes (nicotine gum PRN) Patient Given Instructions on How to Stop Smoking: Yes Date Education Initiated: 07/28/23 Second Hand Smoke Exposure: No Use of substances other than those prescribed or required for medical reasons: No Substance Use Type: Other Substance Use Type Other:: Reports no other substance use Currently Displaying Signs/Symptoms of Drug Intoxication Withdrawal: No Any prior treatment program specific to substance use: No Have you been hit, kicked, punched, or otherwise hurt by someone within the past year? If so, by whom?: No Do you feel safe in your current relationship?: No Current Relationship Is there a partner from a previous relationship who is making you feel unsafe now?: No Are you made to feel afraid or neglected: No Spiritual Healthcare Practices: N/A Advance Directives: No Advance Directives Information Provided: No Do you have thoughts of harming others: None Do you have a plan to hurt others: No Plan Recently lost weight without trying: Yes How much weight loss: 2-13 pounds Eating poorly because of decreased appetite: No Nutrition screen score: 3 Patient : No : No Poor oral hygiene: No service: No Sexual orientation: Straight/Heterosexual Meds Allergies Allergy/AdvReac Type Severity Reaction Status Date / Time Penicillins Allergy Unknown Unknown Verified 05/03/23 22:31 Active Medications: Current Medications Acetaminophen (Acetaminophen 325 Mg Tablet) 650 mg PO Q6H PRN PRN Reason: Headache/Pain Mild Scale (1-3) Al Hydroxide/Mg Hydroxide (Magnesium Hydrox/Alum Hydrox 30 Ml Oral.Susp) 30 ml PO Q6H PRN PRN Reason: Heartburn/Nausea Clindamycin HCl (Clindamycin Hcl 300 Mg Capsule) 600 mg PO Q8H [facility] Stop: 08/08/23 11:59 Last Admin: 07/29/23 13:20 Dose: 600 mg Hydroxyzine HCl (Hydroxyzine Hcl 25 Mg Tablet) 25 mg PO Q6H PRN PRN Reason: Anxiety Magnesium Hydroxide (Milk Of Magnesia 30 Ml Oral.Susp) 30 ml PO DAILY PRN PRN Reason: Constipation Nicotine (Nicotine 14 Mg Patch.Td24) 14 mg TRANSDERMA DAILY [facility] Last Admin: 07/29/23 10:53 Dose: 14 mg Nicotine Polacrilex (Nicotine Polacrilex 2 Mg Gum) 4 mg BUCCAL Q2H PRN PRN Reason: Nicotine Cravings Trazodone HCl (Trazodone Hcl 50 Mg Tablet) 50 mg PO BEDTIME MRX1 PRN PRN Reason: Insomnia Home Medications ?Medication ?Instructions ?Recorded ?Confirmed ?Last Taken ?Type carbamazepine 100 mg 300 mg PO BID 07/28/23 07/28/23 Unknown History tablet,extended release,12 hr (Tegretol XR) olanzapine 10 mg tablet 10 mg PO QAM 07/28/23 07/28/23 Unknown History olanzapine 20 mg tablet 20 mg PO BEDTIME 07/28/23 07/28/23 Unknown History senna leaf extract 176 mg/5 mL 15 ml PO BEDTIME 07/28/23 07/28/23 Unknown History oral syrup (senna) Physical Exam Vital Signs and Narrative: Vital Signs: Last Vital Signs Temp 97.9 F 04/06/24 08:35 Pulse 94 07/29/23 08:35 Resp 18 07/29/23 08:35 BP 118/73 07/29/23 08:35 Pulse Ox 97 07/29/23 08:35 O2 Del Method Room Air 07/29/23 08:35 General: AOx3, no acute distress Resp: CTA bilaterally CVS: S1, S2, RRR GI: +BS, NT, no distention Skin: Warm, dry Neuro: Cranial nerves II-XII grossly intact bilaterally. 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 Patient apparently wandered into a vanc stating she was cold, and screaming that her legs, arms, and pelvis were broken. Medical consult for admission H&P. Mood disorder Plan as per psychiatry COPD Not in acute exacerbation Not on home inhalers Pt does not appear to be on any home medications for chronic medical conditions and does not have any other acute medical complaints. Will sign off for now. Thank you for allowing us to participate in the care of this pt. Please re-consult if any acute issues arise.
[2023-07-29 20:32] VITALS: BP 131/60; PULSE 94; RESP 17; TEMP 36.6; O2SAT 97
[2023-07-30] MEDS: Clindamycin HCL 300 MG CAPSULE 600 MG PO ×3 (04:11→20:02)
--- NOTE | 2023-07-30 05:37 | P.PNPSI_ITS ---
Subjective Subjective Date of Service: 07/30/23 Reason For Visit: Schizoaffective disorder, bipolar type Interim History: Pt seen, reviewed with team. Plans reviewed. Resting when seen. Reports tooth is feeling improved with clindamycin initiation-pleased with this choice. Continues to asks for [facility] skilled nursing, or to remain here. Also considers a return to her hometown in [place] asking if there may be a skilled nursing for her there. Medication Compliance: Yes Side effects from medications: No Attending Groups: Yes Review of Systems Acute medical concerns: No Medical Review of Systems: unchanged Review of Systems Review of Systems Yes all other systems are reviewed and are negative Mental Status Exam Mental Status Exam Patient Appearance: Appropriate Patient Orientation: Person and Situation Level of Consciousness: Awake and Appropriate Patient Behavior: Guarded and Passive Mood Description: Withdrawn and Depressed Affect Description: Calm Patient Cognition Impaired: Yes Ability to Follow Directions: Good Speech Pattern: Clear Hallucinations: Auditory Delusions: Ideas of Reference Thought Process: Distracted and Slowed Thinking Thought Content: positive for [place] and positive for Poverty of Content Judgement: Fair Diagnostics Vital Signs (24Hr): Vital Signs - 24 hr 07/29/23 08:35 07/29/23 20:32 Temperature 97.9 F 97.8 F Pulse Rate 94 94 Respiratory Rate 18 17 Blood Pressure 118/73 131/60 Pulse Oximetry 97 97 Oxygen Delivery Method Room Air Room Air Labs 07/29/23 06:49 Labs: Laboratory Results - last 48 hr 07/29/23 06:49 Sodium 140 Potassium 4.3 Chloride 109 H Carbon Dioxide 25 Anion Gap 10 L BUN 15 Creatinine 0.71 Estim Creat Clear Calc TNP Estimated GFR > 60 Fasting Glucose 107 H Calcium 9.1 Total Bilirubin 0.3 AST 21 ALT 25 Alkaline Phosphatase 74 Total Protein 6.8 Albumin 3.7 Triglycerides 97 Cholesterol 197 LDL Cholesterol, Calc 107 H HDL Cholesterol 71 Medications Medications Current Medications Acetaminophen (Acetaminophen 325 Mg Tablet) 650 mg PO Q6H PRN PRN Reason: Headache/Pain Mild Scale (1-3) Al Hydroxide/Mg Hydroxide (Magnesium Hydrox/Alum Hydrox 30 Ml Oral.Susp) 30 ml PO Q6H PRN PRN Reason: Heartburn/Nausea Clindamycin HCl (Clindamycin Hcl 300 Mg Capsule) 600 mg PO Q8H [facility] Stop: 08/08/23 11:59 Last Admin: 07/30/23 04:11 Dose: 600 mg Hydroxyzine HCl (Hydroxyzine Hcl 25 Mg Tablet) 25 mg PO Q6H PRN PRN Reason: Anxiety Magnesium Hydroxide (Milk Of Magnesia 30 Ml Oral.Susp) 30 ml PO DAILY PRN PRN Reason: Constipation Nicotine (Nicotine 14 Mg Patch.Td24) 14 mg TRANSDERMA DAILY [facility] Last Admin: 07/29/23 10:53 Dose: 14 mg Nicotine Polacrilex (Nicotine Polacrilex 2 Mg Gum) 4 mg BUCCAL Q2H PRN PRN Reason: Nicotine Cravings Trazodone HCl (Trazodone Hcl 50 Mg Tablet) 50 mg PO BEDTIME MRX1 PRN PRN Reason: Insomnia Allergies Allergies Allergy/AdvReac Type Severity Reaction Status Date / Time Penicillins Allergy Unknown Unknown Verified 05/03/23 22:31 Assessment & Plan Assessment & Plan (1) Schizoaffective disorder, bipolar type: Status: Acute Code(s): F25.0 - Schizoaffective disorder, bipolar type Assessment and Plan: 07/30/23 Continue current plan of care Plan Pt is a 63-year-old female with a PMH significant for?COPD, 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 Patient apparently wandered into a vanc stating she was cold, and screaming that her legs, arms, and pelvis were broken. Medical consult for admission H&P. Mood disorder Plan as per psychiatry COPD Not in acute exacerbation Not on home inhalers Pt does not appear to be on any home medications for chronic medical conditions and does not have any other acute medical complaints. Will sign off for now. Thank you for allowing us to participate in the care of this pt. Please re- consult if any acute issues arise. Informed Consent: further education needed Reason for continued inpatient stay Substantial Risk for: rapid decompensation Time Spent With Patient Time: Total time managing care of this patient today ____ minutes.
[2023-07-30 06:00] VITALS: BP 127/52; PULSE 101; RESP 18; TEMP 36.4; O2SAT 97
[2023-07-30] MEDS: Nicotine 14 MG PATCH.TD24 TRANSDERMA (08:26)
[2023-07-30 20:26] VITALS: BP 132/60; PULSE 94; RESP 18; TEMP 36; O2SAT 98
[2023-07-30] MEDS: Ibuprofen 600 MG TABLET PO (21:41)
[2023-07-31] MEDS: traZODone HCL 50 MG TABLET PO (00:20)
[2023-07-31] MEDS: Clindamycin HCL 300 MG CAPSULE 600 MG PO ×3 (04:22→20:52)
[2023-07-31 08:10] VITALS: BP 126/58; PULSE 82; RESP 14; TEMP 36.6; O2SAT 97
[2023-07-31 08:27] VITALS: BMI 26.3
--- NOTE | 2023-07-31 12:40 | HO.PSYCHPN ---
Subjective Subjective Date of Service: 07/31/23 Reason For Visit: Schizoaffective disorder, bipolar type Subjective Notes: Conditional Voluntary Interim History: The nursing staff reported the patient had been pleasant, compliant with medications. On interview the patient reported that now she is willing to take antipsychotics, she reports poor sleep last night. We discussed at length options and she agreed to restart Zyprexa. Mental Status Exam Mental Status Exam Patient Appearance: Appropriate Patient Orientation: Person and Situation Level of Consciousness: Awake and Appropriate Patient Behavior: Guarded and Passive Mood Description: Withdrawn Affect Description: Constricted Patient Cognition Impaired: Yes Ability to Follow Directions: Good Speech Pattern: Clear Hallucinations: None Delusions: Paranoid Ideation and Ideas of Reference Thought Process: Distracted and Slowed Thinking Thought Content: positive for [place] and positive for Poverty of Content Judgement: Poor Diagnostics Vital Signs (24Hr): Vital Signs - 24 hr 07/30/23 20:26 07/31/23 08:10 Temperature 96.8 F 97.8 F Pulse Rate 94 82 Respiratory Rate 18 14 Blood Pressure 132/60 126/58 L Pulse Oximetry 98 97 Oxygen Delivery Method Room Air Room Air BMI result Body Mass Index 26.3 Labs 07/29/23 06:49 Medications Medications Current Medications Acetaminophen (Acetaminophen 325 Mg Tablet) 650 mg PO Q6H PRN PRN Reason: Headache/Pain Mild Scale (1-3) Al Hydroxide/Mg Hydroxide (Magnesium Hydrox/Alum Hydrox 30 Ml Oral.Susp) 30 ml PO Q6H PRN PRN Reason: Heartburn/Nausea Clindamycin HCl (Clindamycin Hcl 300 Mg Capsule) 600 mg PO Q8H [facility] Stop: 08/08/23 11:59 Last Admin: 07/31/23 11:34 Dose: 600 mg Hydroxyzine HCl (Hydroxyzine Hcl 25 Mg Tablet) 25 mg PO Q6H PRN PRN Reason: Anxiety Magnesium Hydroxide (Milk Of Magnesia 30 Ml Oral.Susp) 30 ml PO DAILY PRN PRN Reason: Constipation Nicotine (Nicotine 14 Mg Patch.Td24) 14 mg TRANSDERMA DAILY [facility] Last Admin: 07/31/23 08:48 Dose: Not Given Nicotine Polacrilex (Nicotine Polacrilex 2 Mg Gum) 4 mg BUCCAL Q2H PRN PRN Reason: Nicotine Cravings Trazodone HCl (Trazodone Hcl 50 Mg Tablet) 50 mg PO BEDTIME MRX1 PRN PRN Reason: Insomnia Last Admin: 07/31/23 00:20 Dose: 50 mg Allergies Allergies Allergy/AdvReac Type Severity Reaction Status Date / Time Penicillins Allergy Unknown Unknown Verified 05/03/23 22:31 Assessment & Plan Assessment & Plan (1) Schizoaffective disorder, bipolar type: Status: Acute Code(s): F25.0 - Schizoaffective disorder, bipolar type Assessment and Plan: 07/30/23 Continue current plan of care Plan Pt is a 63-year-old female with a PMH significant for?COPD, 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 Patient apparently wandered into a vanc stating she was cold, and screaming that her legs, arms, and pelvis were broken. Medical consult for admission H&P. Mood disorder Plan as per psychiatry COPD Not in acute exacerbation Not on home inhalers Plan 1. Gather collateral information. 2. Start Zyprexa 2.5 p.o. q.h.s. on July 30. 3. The patient is concerned regarding placement and we will discuss her options pretty soon as soon as we can find out her financial situation. Reason for continued inpatient stay Substantial Risk for: inability to function, rapid decompensation and med/psych decompensation Time Spent With Patient Time: Total time managing care of this patient today __20__ minutes.
[2023-07-31 18:00] VITALS: PULSE 94; RESP 18; TEMP 36; O2SAT 96
--- NOTE | 2023-07-31 18:20 | PC.NURSE ---
Patient complaining of moderate molar pain. Patient had only a one time dose of Motrin ordered. Dr. Faustin updated. New order obtained.
[2023-07-31] MEDS: Ibuprofen 600 MG TABLET PO (18:37)
[2023-07-31] MEDS: OLANZapine 2.5 MG TABLET PO (20:53)
[2023-08-01] MEDS: Clindamycin HCL 300 MG CAPSULE 600 MG PO (05:27)
[2023-08-01 07:00] VITALS: BP 103/64; PULSE 105; RESP 16; TEMP 35.9; O2SAT 95
--- NOTE | 2023-08-01 11:08 | HO.PSYCHPN ---
Subjective Subjective Date of Service: 08/01/23 Reason For Visit: Schizoaffective disorder, bipolar type Subjective Notes: Conditional Voluntary Interim History: The nursing staff reported the patient had been attending to groups she slept poorly last night. The clinical social work aide will contact [facility] since we applied for services in her last admission. On interview the patient denies new symptoms she reports feeling okay she agreed to increase Zyprexa to 5 mg p.o. q.h.s. tonight. Mental Status Exam Mental Status Exam Patient Appearance: Appropriate Patient Orientation: Person and Situation Level of Consciousness: Awake and Appropriate Patient Behavior: Guarded and Passive Mood Description: Withdrawn Affect Description: Constricted Patient Cognition Impaired: Yes Ability to Follow Directions: Good Speech Pattern: Clear Hallucinations: None Delusions: Ideas of Reference Thought Process: Distracted Thought Content: positive for [place] and positive for Poverty of Content Judgement: Fair Diagnostics Vital Signs (24Hr): Vital Signs - 24 hr 07/31/23 18:00 08/01/23 07:00 Temperature 96.8 F 96.6 F L Pulse Rate 94 105 H Respiratory Rate 18 16 Blood Pressure 103/64 Pulse Oximetry 96 95 Oxygen Delivery Method Room Air Room Air BMI result Body Mass Index 26.3 Labs 07/29/23 06:49 Medications Medications Current Medications Acetaminophen (Acetaminophen 325 Mg Tablet) 650 mg PO Q6H PRN PRN Reason: Headache/Pain Mild Scale (1-3) Al Hydroxide/Mg Hydroxide (Magnesium Hydrox/Alum Hydrox 30 Ml Oral.Susp) 30 ml PO Q6H PRN PRN Reason: Heartburn/Nausea Clindamycin HCl (Clindamycin Hcl 300 Mg Capsule) 600 mg PO Q8H [facility] Stop: 08/08/23 11:59 Last Admin: 08/01/23 05:27 Dose: 600 mg Hydroxyzine HCl (Hydroxyzine Hcl 25 Mg Tablet) 25 mg PO Q6H PRN PRN Reason: Anxiety Ibuprofen (Ibuprofen 600 Mg Tablet) 600 mg PO Q6H PRN PRN Reason: Pain, Moderate(Pain Scale 4-6) Last Admin: 07/31/23 18:37 Dose: 600 mg Magnesium Hydroxide (Milk Of Magnesia 30 Ml Oral.Susp) 30 ml PO DAILY PRN PRN Reason: Constipation Nicotine (Nicotine 14 Mg Patch.Td24) 14 mg TRANSDERMA DAILY [facility] Last Admin: 08/01/23 10:04 Dose: Not Given Nicotine Polacrilex (Nicotine Polacrilex 2 Mg Gum) 4 mg BUCCAL Q2H PRN PRN Reason: Nicotine Cravings Olanzapine (Olanzapine 5 Mg Tablet) 5 mg PO BEDTIME [facility] Trazodone HCl (Trazodone Hcl 50 Mg Tablet) 50 mg PO BEDTIME MRX1 PRN PRN Reason: Insomnia Last Admin: 07/31/23 00:20 Dose: 50 mg Allergies Allergies Allergy/AdvReac Type Severity Reaction Status Date / Time Penicillins Allergy Unknown Unknown Verified 05/03/23 22:31 Assessment & Plan Assessment & Plan (1) Schizoaffective disorder, bipolar type: Status: Acute Code(s): F25.0 - Schizoaffective disorder, bipolar type Assessment and Plan: 07/30/23 Continue current plan of care Plan Pt is a 63-year-old female with a PMH significant for?COPD, 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 Patient apparently wandered into a vanc stating she was cold, and screaming that her legs, arms, and pelvis were broken. Medical consult for admission H&P. Mood disorder Plan as per psychiatry COPD Not in acute exacerbation Not on home inhalers Plan 1. Gather collateral information. 2. Start Zyprexa 2.5 p.o. q.h.s. on July 30. We are increasing up to 5 mg at night on July 31. 3. The patient is concerned regarding placement and we will discuss her options pretty soon as soon as we can find out her financial situation. Reason for continued inpatient stay Substantial Risk for: inability to function, rapid decompensation and med/psych decompensation Time Spent With Patient Time: Total time managing care of this patient today __20__ minutes.
[2023-08-02 08:55] VITALS: BP 117/57; PULSE 75; RESP 14; TEMP 37.1; O2SAT 95
--- NOTE | 2023-08-02 14:11 | P.PNPSI_ITS ---
Subjective Subjective Date of Service: 08/02/23 Reason For Visit: Schizoaffective disorder, bipolar type Subjective Notes: Conditional Voluntary Interim History: The nursing staff reported the patient had several outburst in the afternoon and she refused p.r.n. medications and Zyprexa at night. The social sciences instructor is trying to get contact with [facility] and the PAC referral DD before. On interview the patient denies new symptoms I encouraged her to be compliant with medications. She is paranoid regarding that she has herpes virus and she is concerned that she come passive to other patients. I explained her that the possibility of her passing this viral infection is very unlikely. Mental Status Exam Mental Status Exam Patient Appearance: Appropriate Patient Orientation: Person, Place and Situation Level of Consciousness: Awake and Appropriate Patient Behavior: Guarded and Passive Mood Description: Withdrawn Affect Description: Constricted Patient Cognition Impaired: Yes Ability to Follow Directions: Good Speech Pattern: Clear Hallucinations: None Delusions: Paranoid Ideation and Ideas of Reference Thought Process: Distracted and Slowed Thinking Thought Content: positive for [place] and positive for Poverty of Content Judgement: Poor Diagnostics Vital Signs (24Hr): Vital Signs - 24 hr 08/02/23 08:55 Temperature 98.7 F Pulse Rate 75 Respiratory Rate 14 Blood Pressure 117/57 L Pulse Oximetry 95 Oxygen Delivery Method Room Air BMI result Body Mass Index 26.3 Labs 07/29/23 06:49 Medications Medications Current Medications Acetaminophen (Acetaminophen 325 Mg Tablet) 650 mg PO Q6H PRN PRN Reason: Headache/Pain Mild Scale (1-3) Al Hydroxide/Mg Hydroxide (Magnesium Hydrox/Alum Hydrox 30 Ml Oral.Susp) 30 ml PO Q6H PRN PRN Reason: Heartburn/Nausea Clindamycin HCl (Clindamycin Hcl 300 Mg Capsule) 600 mg PO Q8H GLENN Stop: 08/08/23 11:59 Last Admin: 08/02/23 11:33 Dose: Not Given Hydroxyzine HCl (Hydroxyzine Hcl 25 Mg Tablet) 25 mg PO Q6H PRN PRN Reason: Anxiety Ibuprofen (Ibuprofen 600 Mg Tablet) 600 mg PO Q6H PRN PRN Reason: Pain, Moderate(Pain Scale 4-6) Last Admin: 07/31/23 18:37 Dose: 600 mg Lorazepam (Lorazepam 1 Mg Tablet) 1 mg PO Q4H PRN PRN Reason: Anxiety Magnesium Hydroxide (Milk Of Magnesia 30 Ml Oral.Susp) 30 ml PO DAILY PRN PRN Reason: Constipation Nicotine (Nicotine 14 Mg Patch.Td24) 14 mg TRANSDERMA DAILY [facility] Last Admin: 08/02/23 09:27 Dose: Not Given Nicotine Polacrilex (Nicotine Polacrilex 2 Mg Gum) 4 mg BUCCAL Q2H PRN PRN Reason: Nicotine Cravings Olanzapine (Olanzapine 5 Mg Tablet) 5 mg PO BEDTIME GLENN Last Admin: 08/01/23 22:09 Dose: Not Given Olanzapine (Olanzapine 5 Mg Tablet) 5 mg PO Q4H PRN PRN Reason: Psychosis Trazodone HCl (Trazodone Hcl 50 Mg Tablet) 50 mg PO BEDTIME MRX1 PRN PRN Reason: Insomnia Last Admin: 07/31/23 00:20 Dose: 50 mg Allergies Allergies Allergy/AdvReac Type Severity Reaction Status Date / Time Penicillins Allergy Unknown Unknown Verified 05/03/23 22:31 Assessment & Plan Assessment & Plan (1) Schizoaffective disorder, bipolar type: Status: Acute Code(s): F25.0 - Schizoaffective disorder, bipolar type Assessment and Plan: 07/30/23 Continue current plan of care Plan Pt is a 63-year-old female with a PMH significant for?COPD, 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 Patient apparently wandered into a vanc stating she was cold, and screaming that her legs, arms, and pelvis were broken. Medical consult for admission H&P. Mood disorder Plan as per psychiatry COPD Not in acute exacerbation Not on home inhalers Plan 1. Gather collateral information. 2. Start Zyprexa 2.5 p.o. q.h.s. on July 30. We are increasing up to 5 mg at night on July 31. Encouragement for compliance was advised. 3. The patient is concerned regarding placement and we will discuss her options pretty soon as soon as we can find out her financial situation. Reason for continued inpatient stay Substantial Risk for: inability to function, rapid decompensation and med/psych decompensation Time Spent With Patient Time: Total time managing care of this patient today __20__ minutes.
[2023-08-02 18:00] VITALS: BP 111/56; PULSE 97; RESP 18; TEMP 36.2; O2SAT 96
[2023-08-02] MEDS: Clindamycin HCL 300 MG CAPSULE 600 MG PO (20:47)
[2023-08-02] MEDS: OLANZapine 5 MG TABLET PO (20:47)
[2023-08-02] MEDS: Acetaminophen 325 MG TABLET 650 MG PO (20:58)
[2023-08-02] MEDS: traZODone HCL 50 MG TABLET PO (21:02)
[2023-08-02] MEDS: hydrOXYzine HCL 25 MG TABLET PO (21:02)
[2023-08-03] MEDS: Clindamycin HCL 300 MG CAPSULE 600 MG PO ×3 (04:30→20:50)
[2023-08-03 07:00] VITALS: BMI 27.3
[2023-08-03 09:39] VITALS: BP 136/56; PULSE 95; RESP 18; TEMP 36.8; O2SAT 97
[2023-08-03] MEDS: OLANZapine 5 MG TABLET PO ×2 (10:37→20:50)
--- NOTE | 2023-08-03 15:32 | HO.PSYCHPN ---
Subjective Subjective Date of Service: 08/03/23 Reason For Visit: Schizoaffective disorder, bipolar type Subjective Notes: Conditional Voluntary Interim History: The nursing staff reported the patient had an explosive reaction for lunch later she was compliant pressure slept 8 hours. On interview the patient reports that she does not want to take medications I explained her that she can decompensate without treatment. She complained of constipation so we are starting Metamucil. Mental Status Exam Mental Status Exam Patient Appearance: Appropriate and Unkempt Patient Orientation: Person Level of Consciousness: Awake Patient Behavior: Guarded and Passive Mood Description: Withdrawn Affect Description: Blunted Patient Cognition Impaired: Yes Ability to Follow Directions: Good Speech Pattern: Clear Hallucinations: None Delusions: Ideas of Reference Thought Process: Distracted and Slowed Thinking Thought Content: positive for [place] and positive for Poverty of Content Judgement: Poor Diagnostics Vital Signs (24Hr): Vital Signs - 24 hr 08/02/23 18:00 08/03/23 09:39 Temperature 97.2 F 98.2 F Pulse Rate 97 95 Respiratory Rate 18 18 Blood Pressure 111/56 L 136/56 L Pulse Oximetry 96 97 Oxygen Delivery Method Room Air Room Air BMI result Body Mass Index 27.3 Labs 07/29/23 06:49 Medications Medications Current Medications Acetaminophen (Acetaminophen 325 Mg Tablet) 650 mg PO Q6H PRN PRN Reason: Headache/Pain Mild Scale (1-3) Last Admin: 08/02/23 20:58 Dose: 650 mg Al Hydroxide/Mg Hydroxide (Magnesium Hydrox/Alum Hydrox 30 Ml Oral.Susp) 30 ml PO Q6H PRN PRN Reason: Heartburn/Nausea Clindamycin HCl (Clindamycin Hcl 300 Mg Capsule) 600 mg PO Q8H GLENN Stop: 08/08/23 11:59 Last Admin: 08/03/23 10:37 Dose: 600 mg Hydroxyzine HCl (Hydroxyzine Hcl 25 Mg Tablet) 25 mg PO Q6H PRN PRN Reason: Anxiety Last Admin: 08/02/23 21:02 Dose: 25 mg Ibuprofen (Ibuprofen 600 Mg Tablet) 600 mg PO Q6H PRN PRN Reason: Pain, Moderate(Pain Scale 4-6) Last Admin: 07/31/23 18:37 Dose: 600 mg Lorazepam (Lorazepam 1 Mg Tablet) 1 mg PO Q4H PRN PRN Reason: Anxiety Magnesium Hydroxide (Milk Of Magnesia 30 Ml Oral.Susp) 30 ml PO DAILY PRN PRN Reason: Constipation Nicotine (Nicotine 14 Mg Patch.Td24) 14 mg TRANSDERMA DAILY [facility] Last Admin: 08/03/23 10:35 Dose: Not Given Nicotine Polacrilex (Nicotine Polacrilex 2 Mg Gum) 4 mg BUCCAL Q2H PRN PRN Reason: Nicotine Cravings Olanzapine (Olanzapine 5 Mg Tablet) 5 mg PO BEDTIME GLENN Last Admin: 08/02/23 20:47 Dose: 5 mg Olanzapine (Olanzapine 5 Mg Tablet) 5 mg PO Q4H PRN PRN Reason: Psychosis Last Admin: 08/03/23 10:37 Dose: 5 mg Trazodone HCl (Trazodone Hcl 50 Mg Tablet) 50 mg PO BEDTIME MRX1 PRN PRN Reason: Insomnia Last Admin: 08/02/23 21:02 Dose: 50 mg Allergies Allergies Allergy/AdvReac Type Severity Reaction Status Date / Time Penicillins Allergy Unknown Unknown Verified 05/03/23 22:31 Assessment & Plan Assessment & Plan (1) Schizoaffective disorder, bipolar type: Status: Acute Code(s): F25.0 - Schizoaffective disorder, bipolar type Assessment and Plan: 07/30/23 Continue current plan of care Plan Pt is a 63-year-old female with a PMH significant for?COPD, 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 Patient apparently wandered into a vanc stating she was cold, and screaming that her legs, arms, and pelvis were broken. Medical consult for admission H&P. Mood disorder Plan as per psychiatry COPD Not in acute exacerbation Not on home inhalers Plan 1. Gather collateral information. 2. Start Zyprexa 2.5 p.o. q.h.s. on July 30. We are increasing up to 5 mg at night on July 31. Encouragement for compliance was advised. 3. The patient is concerned regarding placement and we will discuss her options pretty soon as soon as we can find out her financial situation. Reason for continued inpatient stay Substantial Risk for: inability to function, rapid decompensation and med/psych decompensation Time Spent With Patient Time: Total time managing care of this patient today __20__ minutes.
[2023-08-03 20:45] VITALS: BP 139/64; PULSE 92; RESP 17; TEMP 36.1; O2SAT 95
[2023-08-04] MEDS: Clindamycin HCL 300 MG CAPSULE 600 MG PO ×3 (05:20→21:24)
[2023-08-04 06:00] VITALS: BP 130/63; PULSE 88; RESP 18; TEMP 36.6; O2SAT 98
--- NOTE | 2023-08-04 13:17 | P.PNPSI_ITS ---
Subjective Subjective Date of Service: 08/04/23 Reason For Visit: Schizoaffective disorder, bipolar type Subjective Notes: Conditional Voluntary Interim History: The nursing staff reported the patient had been yelling at times. The staff has noticed that the patient is internally preoccupied. On interview the patient was internally preoccupied. We are increasing Zyprexa to 10 mg p.o. q.h.s. Mental Status Exam Mental Status Exam Patient Appearance: Unkempt Patient Orientation: Person and Situation Level of Consciousness: Awake Patient Behavior: Guarded and Passive Mood Description: Withdrawn Affect Description: Blunted Ability to Follow Directions: Good Speech Pattern: Impoverished and Monotone Hallucinations: None Delusions: Paranoid Ideation and Ideas of Reference Thought Process: Distracted Thought Content: positive for [place] and positive for Poverty of Content Judgement: Poor Diagnostics Vital Signs (24Hr): Vital Signs - 24 hr 08/03/23 20:45 08/04/23 06:00 Temperature 96.9 F 97.9 F Pulse Rate 92 88 Respiratory Rate 17 18 Blood Pressure 139/64 130/63 Pulse Oximetry 95 98 Oxygen Delivery Method Room Air Room Air BMI result Body Mass Index 27.3 Labs 07/29/23 06:49 Medications Medications Current Medications Acetaminophen (Acetaminophen 325 Mg Tablet) 650 mg PO Q6H PRN PRN Reason: Headache/Pain Mild Scale (1-3) Last Admin: 08/02/23 20:58 Dose: 650 mg Al Hydroxide/Mg Hydroxide (Magnesium Hydrox/Alum Hydrox 30 Ml Oral.Susp) 30 ml PO Q6H PRN PRN Reason: Heartburn/Nausea Clindamycin HCl (Clindamycin Hcl 300 Mg Capsule) 600 mg PO Q8H GLENN Stop: 08/08/23 11:59 Last Admin: 08/04/23 11:37 Dose: 600 mg Hydroxyzine HCl (Hydroxyzine Hcl 25 Mg Tablet) 25 mg PO Q6H PRN PRN Reason: Anxiety Last Admin: 08/02/23 21:02 Dose: 25 mg Ibuprofen (Ibuprofen 600 Mg Tablet) 600 mg PO Q6H PRN PRN Reason: Pain, Moderate(Pain Scale 4-6) Last Admin: 07/31/23 18:37 Dose: 600 mg Lorazepam (Lorazepam 1 Mg Tablet) 1 mg PO Q4H PRN PRN Reason: Anxiety Magnesium Hydroxide (Milk Of Magnesia 30 Ml Oral.Susp) 30 ml PO DAILY PRN PRN Reason: Constipation Nicotine (Nicotine 14 Mg Patch.Td24) 14 mg TRANSDERMA DAILY [facility] Last Admin: 08/04/23 10:26 Dose: Not Given Nicotine Polacrilex (Nicotine Polacrilex 2 Mg Gum) 4 mg BUCCAL Q2H PRN PRN Reason: Nicotine Cravings Olanzapine (Olanzapine 5 Mg Tablet) 5 mg PO Q4H PRN PRN Reason: Psychosis Last Admin: 08/03/23 10:37 Dose: 5 mg Olanzapine (Olanzapine 10 Mg Tablet) 10 mg PO BEDTIME GLENN Trazodone HCl (Trazodone Hcl 50 Mg Tablet) 50 mg PO BEDTIME MRX1 PRN PRN Reason: Insomnia Last Admin: 08/02/23 21:02 Dose: 50 mg Allergies Allergies Allergy/AdvReac Type Severity Reaction Status Date / Time Penicillins Allergy Unknown Unknown Verified 05/03/23 22:31 Assessment & Plan Assessment & Plan (1) Schizoaffective disorder, bipolar type: Status: Acute Code(s): F25.0 - Schizoaffective disorder, bipolar type Assessment and Plan: 07/30/23 Continue current plan of care Plan Pt is a 63-year-old female with a PMH significant for?COPD, 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 Patient apparently wandered into a vanc stating she was cold, and screaming that her legs, arms, and pelvis were broken. Medical consult for admission H&P. Mood disorder Plan as per psychiatry COPD Not in acute exacerbation Not on home inhalers Plan 1. Gather collateral information. 2. Start Zyprexa 2.5 p.o. q.h.s. on July 30. We are increasing up to 5 mg at night on July 31. Encouragement for compliance was advised. We are increasing Zyprexa to 10 mg p.o. q.h.s. on August 03 3. The patient is concerned regarding placement and we will discuss her options pretty soon as soon as we can find out her financial situation. Reason for continued inpatient stay Substantial Risk for: inability to function, rapid decompensation and med/psych decompensation Time Spent With Patient Time: Total time managing care of this patient today __20__ minutes.
[2023-08-04 18:00] VITALS: BP 170/72; PULSE 67; RESP 18; TEMP 35.8; O2SAT 96
[2023-08-04] MEDS: OLANZapine 10 MG TABLET PO (21:24)
[2023-08-05] MEDS: Clindamycin HCL 300 MG CAPSULE 600 MG PO ×3 (05:07→19:59)
[2023-08-05 08:00] VITALS: BP 123/59; PULSE 65; RESP 18; TEMP 36.6; O2SAT 100
--- NOTE | 2023-08-05 11:41 | HO.PSYCHPN ---
Subjective Subjective Date of Service: 08/05/23 Reason For Visit: Schizoaffective disorder, bipolar type Interim History: met with patient. Discussed with Nursing. Pleasant. Isolative. Still appears internally preoccupied. Sleeping well. Patient reports hearing a voice telling her she is . Also fearful that she will be discharged and be homeless. Responds well to reassurance. Medication Compliance: Yes Side effects from medications: No Attending Groups: Intermittent Review of Systems Acute medical concerns: No Mental Status Exam Mental Status Exam Patient Appearance: Unkempt Patient Orientation: Person and Situation Level of Consciousness: Awake Patient Behavior: Guarded and Passive Mood Description: Withdrawn Affect Description: Blunted Ability to Follow Directions: Good Speech Pattern: Impoverished and Monotone Hallucinations: None Delusions: Paranoid Ideation and Ideas of Reference Thought Process: Distracted Thought Content: positive for [place] and positive for Poverty of Content Judgement: Poor Diagnostics Vital Signs (24Hr): Vital Signs - 24 hr 08/04/23 18:00 Temperature 96.5 F L Pulse Rate 67 Respiratory Rate 18 Blood Pressure 170/72 H Pulse Oximetry 96 Oxygen Delivery Method Room Air BMI result Body Mass Index 27.3 Labs 07/29/23 06:49 Medications Medications Current Medications Acetaminophen (Acetaminophen 325 Mg Tablet) 650 mg PO Q6H PRN PRN Reason: Headache/Pain Mild Scale (1-3) Last Admin: 08/02/23 20:58 Dose: 650 mg Al Hydroxide/Mg Hydroxide (Magnesium Hydrox/Alum Hydrox 30 Ml Oral.Susp) 30 ml PO Q6H PRN PRN Reason: Heartburn/Nausea Clindamycin HCl (Clindamycin Hcl 300 Mg Capsule) 600 mg PO Q8H GLENN Stop: 08/08/23 11:59 Last Admin: 08/05/23 05:07 Dose: 600 mg Hydroxyzine HCl (Hydroxyzine Hcl 25 Mg Tablet) 25 mg PO Q6H PRN PRN Reason: Anxiety Last Admin: 08/02/23 21:02 Dose: 25 mg Ibuprofen (Ibuprofen 600 Mg Tablet) 600 mg PO Q6H PRN PRN Reason: Pain, Moderate(Pain Scale 4-6) Last Admin: 07/31/23 18:37 Dose: 600 mg Lorazepam (Lorazepam 1 Mg Tablet) 1 mg PO Q4H PRN PRN Reason: Anxiety Magnesium Hydroxide (Milk Of Magnesia 30 Ml Oral.Susp) 30 ml PO DAILY PRN PRN Reason: Constipation Nicotine (Nicotine 14 Mg Patch.Td24) 14 mg TRANSDERMA DAILY [facility] Last Admin: 08/05/23 08:27 Dose: Not Given Nicotine Polacrilex (Nicotine Polacrilex 2 Mg Gum) 4 mg BUCCAL Q2H PRN PRN Reason: Nicotine Cravings Olanzapine (Olanzapine 5 Mg Tablet) 5 mg PO Q4H PRN PRN Reason: Psychosis Last Admin: 08/03/23 10:37 Dose: 5 mg Olanzapine (Olanzapine 10 Mg Tablet) 10 mg PO BEDTIME GLENN Last Admin: 08/04/23 21:24 Dose: 10 mg Trazodone HCl (Trazodone Hcl 50 Mg Tablet) 50 mg PO BEDTIME MRX1 PRN PRN Reason: Insomnia Last Admin: 08/02/23 21:02 Dose: 50 mg Allergies Allergies Allergy/AdvReac Type Severity Reaction Status Date / Time Penicillins Allergy Unknown Unknown Verified 05/03/23 22:31 Assessment & Plan Assessment & Plan (1) Schizoaffective disorder, bipolar type: Status: Acute Code(s): F25.0 - Schizoaffective disorder, bipolar type Assessment and Plan: 07/30/23 Continue current plan of care Plan Pt is a 63-year-old female with a PMH significant for?COPD, 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 Patient apparently wandered into a vanc stating she was cold, and screaming that her legs, arms, and pelvis were broken. Medical consult for admission H&P. Mood disorder Plan as per psychiatry COPD Not in acute exacerbation Not on home inhalers Plan 1. Gather collateral information. 2. Start Zyprexa 2.5 p.o. q.h.s. on July 30. We are increasing up to 5 mg at night on July 31. Encouragement for compliance was advised. We are increasing Zyprexa to 10 mg p.o. q.h.s. on August 03 3. The patient is concerned regarding placement and we will discuss her options pretty soon as soon as we can find out her financial situation. 08/04: no changes - olanzapine increased to 10 mg last night Reason for continued inpatient stay Substantial Risk for: inability to function Time Spent With Patient Time: Total time managing care of this patient today ____ minutes.
[2023-08-05] MEDS: LORazepam 1 MG TABLET PO ×2 (15:06→19:58)
[2023-08-05 18:00] VITALS: BP 149/68; PULSE 107; RESP 16; TEMP 36.6; O2SAT 97
[2023-08-05] MEDS: OLANZapine 10 MG TABLET PO (19:59)
[2023-08-06] MEDS: Clindamycin HCL 300 MG CAPSULE 600 MG PO ×2 (03:52→11:25)
[2023-08-06 09:25] VITALS: BP 126/81; PULSE 100; RESP 18; TEMP 35.5; O2SAT 97
--- NOTE | 2023-08-06 09:59 | P.PNPSI_ITS ---
Subjective Subjective Date of Service: 08/06/23 Reason For Visit: Schizoaffective disorder, bipolar type Interim History: Met with patient in room. Discussed with Nursing. Pleasant. Isolative. Still internally preoccupied. Sleeping well. Patient intermittent voice and remains fearful that she will be discharged and be homeless. Responds well to reassurance. Medication Compliance: Yes Side effects from medications: No Attending Groups: Yes Review of Systems Review of Systems sinus congstion Mental Status Exam Mental Status Exam Patient Appearance: Unkempt Patient Orientation: Person and Situation Level of Consciousness: Awake Patient Behavior: Guarded and Passive Mood Description: Withdrawn Affect Description: Blunted Patient Cognition Impaired: Yes Ability to Follow Directions: Good Speech Pattern: Impoverished and Monotone Diagnostics Vital Signs (24Hr): Vital Signs - 24 hr 08/05/23 18:00 08/06/23 09:25 Temperature 97.9 F 96 F L Pulse Rate 107 H 100 Respiratory Rate 16 18 Blood Pressure 149/68 H 126/81 Pulse Oximetry 97 97 Oxygen Delivery Method Room Air Room Air BMI result Body Mass Index 27.3 Labs 07/29/23 06:49 Medications Medications Current Medications Acetaminophen (Acetaminophen 325 Mg Tablet) 650 mg PO Q6H PRN PRN Reason: Headache/Pain Mild Scale (1-3) Last Admin: 08/02/23 20:58 Dose: 650 mg Al Hydroxide/Mg Hydroxide (Magnesium Hydrox/Alum Hydrox 30 Ml Oral.Susp) 30 ml PO Q6H PRN PRN Reason: Heartburn/Nausea Clindamycin HCl (Clindamycin Hcl 300 Mg Capsule) 600 mg PO Q8H GLENN Stop: 08/08/23 11:59 Last Admin: 08/06/23 03:52 Dose: 600 mg Hydroxyzine HCl (Hydroxyzine Hcl 25 Mg Tablet) 25 mg PO Q6H PRN PRN Reason: Anxiety Last Admin: 08/02/23 21:02 Dose: 25 mg Ibuprofen (Ibuprofen 600 Mg Tablet) 600 mg PO Q6H PRN PRN Reason: Pain, Moderate(Pain Scale 4-6) Last Admin: 07/31/23 18:37 Dose: 600 mg Lorazepam (Lorazepam 1 Mg Tablet) 1 mg PO Q4H PRN PRN Reason: Anxiety Last Admin: 08/05/23 19:58 Dose: 1 mg Magnesium Hydroxide (Milk Of Magnesia 30 Ml Oral.Susp) 30 ml PO DAILY PRN PRN Reason: Constipation Nicotine (Nicotine 14 Mg Patch.Td24) 14 mg TRANSDERMA DAILY [facility] Last Admin: 08/06/23 09:04 Dose: Not Given Nicotine Polacrilex (Nicotine Polacrilex 2 Mg Gum) 4 mg BUCCAL Q2H PRN PRN Reason: Nicotine Cravings Olanzapine (Olanzapine 5 Mg Tablet) 5 mg PO Q4H PRN PRN Reason: Psychosis Last Admin: 08/03/23 10:37 Dose: 5 mg Olanzapine (Olanzapine 10 Mg Tablet) 10 mg PO BEDTIME [facility] Last Admin: 08/05/23 19:59 Dose: 10 mg Trazodone HCl (Trazodone Hcl 50 Mg Tablet) 50 mg PO BEDTIME MRX1 PRN PRN Reason: Insomnia Last Admin: 08/02/23 21:02 Dose: 50 mg Allergies Allergies Allergy/AdvReac Type Severity Reaction Status Date / Time Penicillins Allergy Unknown Unknown Verified 05/03/23 22:31 Assessment & Plan Assessment & Plan (1) Schizoaffective disorder, bipolar type: Status: Acute Code(s): F25.0 - Schizoaffective disorder, bipolar type Assessment and Plan: 07/30/23 Continue current plan of care Plan Pt is a 63-year-old female with a PMH significant for?COPD, 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 Patient apparently wandered into a vanc stating she was cold, and screaming that her legs, arms, and pelvis were broken. Medical consult for admission H&P. Mood disorder Plan as per psychiatry COPD Not in acute exacerbation Not on home inhalers Plan 1. Gather collateral information. 2. Start Zyprexa 2.5 p.o. q.h.s. on July 30. We are increasing up to 5 mg at night on July 31. Encouragement for compliance was advised. We are increasing Zyprexa to 10 mg p.o. q.h.s. on August 03 3. The patient is concerned regarding placement and we will discuss her options pretty soon as soon as we can find out her financial situation. 08/04: no changes - olanzapine increased to 10 mg last night 08/05: no changes. Sudafed for sinus congestion Reason for continued inpatient stay Substantial Risk for: inability to function and rapid decompensation Time Spent With Patient Time: Total time managing care of this patient today ____ minutes.
[2023-08-06] MEDS: Pseudoephedrine HCL 30 MG TABLET PO (14:22)
--- NOTE | 2023-08-06 14:25 | PC.NURSE ---
Patient given nasal decongestant at 1425 as requested. She has minimal swelling in her right outer ankle, no warmth or discoloration, due to an old injury. Refused pain medication when offered. patient will keep feet elevated when possible.
[2023-08-06 19:40] VITALS: BP 137/73; PULSE 71; RESP 18; TEMP 36.6; O2SAT 98
--- NOTE | 2023-08-06 21:36 | PC.NURSE ---
Patient refusing HS medications despite multiple attempts. Provider notified.
[2023-08-07] MEDS: Ibuprofen 600 MG TABLET PO (01:47)
[2023-08-07] MEDS: LORazepam 1 MG TABLET PO (01:48)
[2023-08-07] MEDS: traZODone HCL 50 MG TABLET PO (01:48)
[2023-08-07 06:00] VITALS: BP 108/55; PULSE 74; RESP 18; O2SAT 93
[2023-08-07] MEDS: Clindamycin HCL 300 MG CAPSULE 600 MG PO (06:20)
--- NOTE | 2023-08-07 08:29 | HO.PSYCHPN ---
Subjective Subjective Date of Service: 08/07/23 Reason For Visit: Schizoaffective disorder, bipolar type Subjective Notes: Conditional Voluntary Interim History: Pt slept most of the night. She reports lower back pain. She states her head hurts and when asked to clarify states that it is both too many thoughts and pain. She denies SI/HI. She reports asper cream is helpful with back pain. No behavioral concerns. Review of Systems Review of Systems sinus congstion Yes all other systems are reviewed and are negative Mental Status Exam Mental Status Exam Patient Appearance: Unkempt Patient Orientation: Person and Situation Level of Consciousness: Awake Patient Behavior: Guarded and Passive Mood Description: Withdrawn Affect Description: Blunted Patient Cognition Impaired: Yes Ability to Follow Directions: Good Speech Pattern: Impoverished and Monotone Diagnostics Vital Signs (24Hr): Vital Signs - 24 hr 08/06/23 09:25 08/06/23 19:40 Temperature 96 F L 97.8 F Pulse Rate 100 71 Respiratory Rate 18 18 Blood Pressure 126/81 137/73 Pulse Oximetry 97 98 Oxygen Delivery Method Room Air Room Air BMI result Body Mass Index 27.3 Labs 07/29/23 06:49 Medications Medications Current Medications Acetaminophen (Acetaminophen 325 Mg Tablet) 650 mg PO Q6H PRN PRN Reason: Headache/Pain Mild Scale (1-3) Last Admin: 08/02/23 20:58 Dose: 650 mg Al Hydroxide/Mg Hydroxide (Magnesium Hydrox/Alum Hydrox 30 Ml Oral.Susp) 30 ml PO Q6H PRN PRN Reason: Heartburn/Nausea Clindamycin HCl (Clindamycin Hcl 300 Mg Capsule) 600 mg PO Q8H GLENN Stop: 08/08/23 11:59 Last Admin: 08/07/23 06:20 Dose: 600 mg Hydroxyzine HCl (Hydroxyzine Hcl 25 Mg Tablet) 25 mg PO Q6H PRN PRN Reason: Anxiety Last Admin: 08/02/23 21:02 Dose: 25 mg Ibuprofen (Ibuprofen 600 Mg Tablet) 600 mg PO Q6H PRN PRN Reason: Pain, Moderate(Pain Scale 4-6) Last Admin: 08/07/23 01:47 Dose: 600 mg Lorazepam (Lorazepam 1 Mg Tablet) 1 mg PO Q4H PRN PRN Reason: Anxiety Last Admin: 08/07/23 01:48 Dose: 1 mg Magnesium Hydroxide (Milk Of Magnesia 30 Ml Oral.Susp) 30 ml PO DAILY PRN PRN Reason: Constipation Nicotine (Nicotine 14 Mg Patch.Td24) 14 mg TRANSDERMA DAILY GLENN Last Admin: 08/06/23 09:04 Dose: Not Given Nicotine Polacrilex (Nicotine Polacrilex 2 Mg Gum) 4 mg BUCCAL Q2H PRN PRN Reason: Nicotine Cravings Olanzapine (Olanzapine 5 Mg Tablet) 5 mg PO Q4H PRN PRN Reason: Psychosis Last Admin: 08/03/23 10:37 Dose: 5 mg Olanzapine (Olanzapine 10 Mg Tablet) 10 mg PO BEDTIME GLENN Last Admin: 08/06/23 21:36 Dose: Not Given Pseudoephedrine HCl (Pseudoephedrine Hcl 30 Mg Tablet) 30 mg PO Q4H PRN PRN Reason: sinus congestion Last Admin: 08/06/23 14:22 Dose: 30 mg Trazodone HCl (Trazodone Hcl 50 Mg Tablet) 50 mg PO BEDTIME MRX1 PRN PRN Reason: Insomnia Last Admin: 08/07/23 01:48 Dose: 50 mg Allergies Allergies Allergy/AdvReac Type Severity Reaction Status Date / Time Penicillins Allergy Unknown Unknown Verified 05/03/23 22:31 Assessment & Plan Assessment & Plan (1) Schizoaffective disorder, bipolar type: Status: Acute Code(s): F25.0 - Schizoaffective disorder, bipolar type Assessment and Plan: 07/30/23 Continue current plan of care Plan Pt is a 63-year-old female with a PMH significant for?COPD, 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 Patient apparently wandered into a vanc stating she was cold, and screaming that her legs, arms, and pelvis were broken. Medical consult for admission H&P. Mood disorder Plan as per psychiatry COPD Not in acute exacerbation Not on home inhalers Plan 1. Gather collateral information. 2. Start Zyprexa 2.5 p.o. q.h.s. on July 30. We are increasing up to 5 mg at night on July 31. Encouragement for compliance was advised. We are increasing Zyprexa to 10 mg p.o. q.h.s. on August 03 3. The patient is concerned regarding placement and we will discuss her options pretty soon as soon as we can find out her financial situation. 08/04: no changes - olanzapine increased to 10 mg last night 08/05: no changes. Sudafed for sinus congestion 08/06 continue tx. asper cream for back pain. Reason for continued inpatient stay Substantial Risk for: inability to function Time Spent With Patient Time: Total time managing care of this patient today ____ minutes.
[2023-08-07 19:40] VITALS: RESP 18
--- NOTE | 2023-08-08 16:25 | HO.PSYCHPN ---
Subjective Subjective Date of Service: 08/08/23 Reason For Visit: Schizoaffective disorder, bipolar type Subjective Notes: Conditional Voluntary Interim History: The nursing staff reported the patient remains confused at times stating that she got expelled from the OT group but she was not expelled. She was delusional against her peers. 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 We are going to increase Zyprexa to 15 mg p.o. q.h.s. to target psychosis. Mental Status Exam Mental Status Exam Patient Appearance: Appropriate Patient Orientation: Person and Situation Level of Consciousness: Awake and Appropriate Patient Behavior: Guarded Mood Description: Withdrawn Affect Description: Expansive Patient Cognition Impaired: Yes Ability to Follow Directions: Fair Speech Pattern: Clear Hallucinations: None Delusions: Paranoid Ideation and Ideas of Reference Thought Process: Distracted and Slowed Thinking Thought Content: positive for [place] and positive for Poverty of Content Judgement: Poor Diagnostics Vital Signs (24Hr): Vital Signs - 24 hr 08/07/23 19:40 Respiratory Rate 18 BMI result Body Mass Index 27.3 Labs 07/29/23 06:49 Medications Medications Current Medications Acetaminophen (Acetaminophen 325 Mg Tablet) 650 mg PO Q6H PRN PRN Reason: Headache/Pain Mild Scale (1-3) Last Admin: 08/02/23 20:58 Dose: 650 mg Al Hydroxide/Mg Hydroxide (Magnesium Hydrox/Alum Hydrox 30 Ml Oral.Susp) 30 ml PO Q6H PRN PRN Reason: Heartburn/Nausea Hydroxyzine HCl (Hydroxyzine Hcl 25 Mg Tablet) 25 mg PO Q6H PRN PRN Reason: Anxiety Last Admin: 08/02/23 21:02 Dose: 25 mg Ibuprofen (Ibuprofen 600 Mg Tablet) 600 mg PO Q6H PRN PRN Reason: Pain, Moderate(Pain Scale 4-6) Last Admin: 08/07/23 01:47 Dose: 600 mg Lorazepam (Lorazepam 1 Mg Tablet) 1 mg PO Q4H PRN PRN Reason: Anxiety Last Admin: 08/07/23 01:48 Dose: 1 mg Magnesium Hydroxide (Milk Of Magnesia 30 Ml Oral.Susp) 30 ml PO DAILY PRN PRN Reason: Constipation Nicotine (Nicotine 14 Mg Patch.Td24) 14 mg TRANSDERMA DAILY [facility] Last Admin: 08/08/23 08:51 Dose: Not Given Nicotine Polacrilex (Nicotine Polacrilex 2 Mg Gum) 4 mg BUCCAL Q2H PRN PRN Reason: Nicotine Cravings Olanzapine (Olanzapine 5 Mg Tablet) 5 mg PO Q4H PRN PRN Reason: Psychosis Last Admin: 08/03/23 10:37 Dose: 5 mg Olanzapine (Olanzapine 10 Mg Tablet) 10 mg PO BEDTIME GLENN Last Admin: 08/07/23 20:40 Dose: Not Given Pseudoephedrine HCl (Pseudoephedrine Hcl 30 Mg Tablet) 30 mg PO Q4H PRN PRN Reason: sinus congestion Last Admin: 08/06/23 14:22 Dose: 30 mg Trazodone HCl (Trazodone Hcl 50 Mg Tablet) 50 mg PO BEDTIME MRX1 PRN PRN Reason: Insomnia Last Admin: 08/07/23 01:48 Dose: 50 mg Trolamine Salicylate (Trolamine Salicylate 10 % Cream 85 Gm Tube) 1 appl TOPICAL BID GLENN; Protocol Last Admin: 08/08/23 08:51 Dose: Not Given Allergies Allergies Allergy/AdvReac Type Severity Reaction Status Date / Time Penicillins Allergy Unknown Unknown Verified 05/03/23 22:31 Assessment & Plan Assessment & Plan (1) Schizoaffective disorder, bipolar type: Status: Acute Code(s): F25.0 - Schizoaffective disorder, bipolar type Assessment and Plan: 07/30/23 Continue current plan of care Plan Pt is a 63-year-old female with a PMH significant for?COPD, 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 Patient apparently wandered into a vanc stating she was cold, and screaming that her legs, arms, and pelvis were broken. Medical consult for admission H&P. Mood disorder Plan as per psychiatry COPD Not in acute exacerbation Not on home inhalers Plan 1. Gather collateral information. 2. Start Zyprexa 2.5 p.o. q.h.s. on July 30. We are increasing up to 5 mg at night on July 31. Encouragement for compliance was advised. We are increasing Zyprexa to 10 mg p.o. q.h.s. on August 03 3. The patient is concerned regarding placement and we will discuss her options pretty soon as soon as we can find out her financial situation. 4. The patient remains grossly psychotic so we are increasing her Zyprexa to 15 mg p.o. q.h.s. on August 07. Reason for continued inpatient stay Substantial Risk for: inability to function, rapid decompensation and med/psych decompensation Time Spent With Patient Time: Total time managing care of this patient today __20__ minutes.
[2023-08-08] MEDS: OLANZapine 7.5 MG TABLET 15 MG PO (20:18)
[2023-08-08 20:32] VITALS: BP 129/58; PULSE 86; RESP 17; TEMP 36.3; O2SAT 95
[2023-08-09 08:33] VITALS: BP 122/61; PULSE 74; RESP 16; TEMP 36.5; O2SAT 97
[2023-08-09] MEDS: OLANZapine 5 MG TABLET PO (08:55)
[2023-08-09] MEDS: Trolamine Salicylate 10 % Cream 85 GM TUBE 1 APPL TOPICAL (09:52)
--- NOTE | 2023-08-09 12:48 | HO.PSYCHPN ---
Subjective Subjective Date of Service: 08/09/23 Reason For Visit: Schizoaffective disorder, bipolar type Subjective Notes: Conditional Voluntary Interim History: The nursing staff reported the patient has refused his nicotine patch. She was irritable and angry and she needed p.r.n. Zyprexa yesterday. On interview the patient remains delusional and psychotic. Yesterday we increase her Zyprexa to 15 mg p.o. q.h.s. and we will reassess how she improves. Mental Status Exam Mental Status Exam Patient Appearance: Appropriate Patient Orientation: Person and Situation Level of Consciousness: Awake and Appropriate Patient Behavior: Guarded and Passive Mood Description: Withdrawn and Constricted Affect Description: Constricted Patient Cognition Impaired: No Ability to Follow Directions: Fair Speech Pattern: Clear Hallucinations: None Delusions: Paranoid Ideation and Ideas of Reference Thought Process: Distracted and Slowed Thinking Thought Content: positive for [place], positive for [place], positive for Poverty of Content and positive for Thought Blocking Judgement: Poor Diagnostics Vital Signs (24Hr): Vital Signs - 24 hr 08/08/23 20:32 08/09/23 08:33 Temperature 97.4 F 97.7 F Pulse Rate 86 74 Respiratory Rate 17 16 Blood Pressure 129/58 L 122/61 Pulse Oximetry 95 97 Oxygen Delivery Method Room Air Nasal Cannula BMI result Body Mass Index 27.3 Labs 07/29/23 06:49 Medications Medications Current Medications Acetaminophen (Acetaminophen 325 Mg Tablet) 650 mg PO Q6H PRN PRN Reason: Headache/Pain Mild Scale (1-3) Last Admin: 08/02/23 20:58 Dose: 650 mg Al Hydroxide/Mg Hydroxide (Magnesium Hydrox/Alum Hydrox 30 Ml Oral.Susp) 30 ml PO Q6H PRN PRN Reason: Heartburn/Nausea Hydroxyzine HCl (Hydroxyzine Hcl 25 Mg Tablet) 25 mg PO Q6H PRN PRN Reason: Anxiety Last Admin: 08/02/23 21:02 Dose: 25 mg Ibuprofen (Ibuprofen 600 Mg Tablet) 600 mg PO Q6H PRN PRN Reason: Pain, Moderate(Pain Scale 4-6) Last Admin: 08/07/23 01:47 Dose: 600 mg Lorazepam (Lorazepam 1 Mg Tablet) 1 mg PO Q4H PRN PRN Reason: Anxiety Last Admin: 08/07/23 01:48 Dose: 1 mg Magnesium Hydroxide (Milk Of Magnesia 30 Ml Oral.Susp) 30 ml PO DAILY PRN PRN Reason: Constipation Nicotine (Nicotine 14 Mg Patch.Td24) 14 mg TRANSDERMA DAILY [facility] Last Admin: 08/09/23 08:54 Dose: Not Given Nicotine Polacrilex (Nicotine Polacrilex 2 Mg Gum) 4 mg BUCCAL Q2H PRN PRN Reason: Nicotine Cravings Olanzapine (Olanzapine 5 Mg Tablet) 5 mg PO Q4H PRN PRN Reason: Psychosis Last Admin: 08/09/23 08:55 Dose: 5 mg Olanzapine (Olanzapine 7.5 Mg Tablet) 15 mg PO BEDTIME GLENN Last Admin: 08/08/23 20:18 Dose: 15 mg Pseudoephedrine HCl (Pseudoephedrine Hcl 30 Mg Tablet) 30 mg PO Q4H PRN PRN Reason: sinus congestion Last Admin: 08/06/23 14:22 Dose: 30 mg Trazodone HCl (Trazodone Hcl 50 Mg Tablet) 50 mg PO BEDTIME MRX1 PRN PRN Reason: Insomnia Last Admin: 08/07/23 01:48 Dose: 50 mg Trolamine Salicylate (Trolamine Salicylate 10 % Cream 85 Gm Tube) 1 appl TOPICAL BID GLENN; Protocol Last Admin: 08/09/23 09:52 Dose: 1 appl Allergies Allergies Allergy/AdvReac Type Severity Reaction Status Date / Time Penicillins Allergy Unknown Unknown Verified 05/03/23 22:31 Assessment & Plan Assessment & Plan (1) Schizoaffective disorder, bipolar type: Status: Acute Code(s): F25.0 - Schizoaffective disorder, bipolar type Assessment and Plan: 07/30/23 Continue current plan of care Plan Pt is a 63-year-old female with a PMH significant for?COPD, 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 Patient apparently wandered into a vanc stating she was cold, and screaming that her legs, arms, and pelvis were broken. Medical consult for admission H&P. Mood disorder Plan as per psychiatry COPD Not in acute exacerbation Not on home inhalers Plan 1. Gather collateral information. 2. Start Zyprexa 2.5 p.o. q.h.s. on July 30. We are increasing up to 5 mg at night on July 31. Encouragement for compliance was advised. We are increasing Zyprexa to 10 mg p.o. q.h.s. on August 03 3. The patient is concerned regarding placement and we will discuss her options pretty soon as soon as we can find out her financial situation. 4. The patient remains grossly psychotic so we are increasing her Zyprexa to 15 mg p.o. q.h.s. on August 07. We are going to keep it for few days and reassess if we need to increase up to 20 mg HS Reason for continued inpatient stay Substantial Risk for: inability to function, rapid decompensation and med/psych decompensation Time Spent With Patient Time: Total time managing care of this patient today _20___ minutes.
[2023-08-09] MEDS: OLANZapine 7.5 MG TABLET 15 MG PO (20:43)
[2023-08-10] MEDS: LORazepam 1 MG TABLET PO (01:12)
[2023-08-10] MEDS: traZODone HCL 50 MG TABLET PO (01:13)
[2023-08-10 01:17] VITALS: BP 109/57; PULSE 89; RESP 16; TEMP 36.1; O2SAT 95
[2023-08-10] MEDS: hydrOXYzine HCL 25 MG TABLET PO (03:18)
[2023-08-10] MEDS: OLANZapine 5 MG TABLET PO (03:18)
[2023-08-10 08:00] VITALS: BP 111/59; PULSE 85; RESP 18; TEMP 36; O2SAT 96
[2023-08-10] MEDS: Nicotine 14 MG PATCH.TD24 TRANSDERMA (08:38)
[2023-08-10] MEDS: Trolamine Salicylate 10 % Cream 85 GM TUBE 1 APPL TOPICAL ×2 (08:42→22:45)
--- NOTE | 2023-08-10 11:58 | P.PNPSI_ITS ---
Subjective Subjective Date of Service: 08/10/23 Reason For Visit: Schizoaffective disorder, bipolar type Subjective Notes: Conditional Voluntary Interim History: The nursing staff reported the patient was wandering in the morning with good appetite. She was redirectable and she had poor sleep last night. On interview the patient denies new symptoms she looks internally preoccupied and with inappropriate affect at times. Redirectable Mental Status Exam Mental Status Exam Patient Appearance: Appropriate Patient Orientation: Person and Situation Level of Consciousness: Awake and Appropriate Patient Behavior: Guarded and Passive Mood Description: Withdrawn Affect Description: Constricted Patient Cognition Impaired: Yes Ability to Follow Directions: Good Speech Pattern: Clear Hallucinations: None Delusions: Ideas of Reference Thought Process: Distracted and Slowed Thinking Thought Content: positive for [place], positive for Circum[place] and positive for Thought Blocking Judgement: Poor Diagnostics Vital Signs (24Hr): Vital Signs - 24 hr 08/10/23 01:17 08/10/23 08:00 Temperature 97 F 96.8 F Pulse Rate 89 85 Respiratory Rate 16 18 Blood Pressure 109/57 L 111/59 L Pulse Oximetry 95 96 Oxygen Delivery Method Room Air Room Air BMI result Body Mass Index 27.3 Labs 07/29/23 06:49 Medications Medications Current Medications Acetaminophen (Acetaminophen 325 Mg Tablet) 650 mg PO Q6H PRN PRN Reason: Headache/Pain Mild Scale (1-3) Last Admin: 08/02/23 20:58 Dose: 650 mg Al Hydroxide/Mg Hydroxide (Magnesium Hydrox/Alum Hydrox 30 Ml Oral.Susp) 30 ml PO Q6H PRN PRN Reason: Heartburn/Nausea Hydroxyzine HCl (Hydroxyzine Hcl 25 Mg Tablet) 25 mg PO Q6H PRN PRN Reason: Anxiety Last Admin: 08/10/23 03:18 Dose: 25 mg Ibuprofen (Ibuprofen 600 Mg Tablet) 600 mg PO Q6H PRN PRN Reason: Pain, Moderate(Pain Scale 4-6) Last Admin: 08/07/23 01:47 Dose: 600 mg Lorazepam (Lorazepam 1 Mg Tablet) 1 mg PO Q4H PRN PRN Reason: Anxiety Last Admin: 08/10/23 01:12 Dose: 1 mg Magnesium Hydroxide (Milk Of Magnesia 30 Ml Oral.Susp) 30 ml PO DAILY PRN PRN Reason: Constipation Nicotine (Nicotine 14 Mg Patch.Td24) 14 mg TRANSDERMA DAILY GLENN Last Admin: 08/10/23 08:38 Dose: 14 mg Nicotine Polacrilex (Nicotine Polacrilex 2 Mg Gum) 4 mg BUCCAL Q2H PRN PRN Reason: Nicotine Cravings Olanzapine (Olanzapine 5 Mg Tablet) 5 mg PO Q4H PRN PRN Reason: Psychosis Last Admin: 08/10/23 03:18 Dose: 5 mg Olanzapine (Olanzapine 7.5 Mg Tablet) 15 mg PO BEDTIME GLENN Last Admin: 08/09/23 20:43 Dose: 15 mg Pseudoephedrine HCl (Pseudoephedrine Hcl 30 Mg Tablet) 30 mg PO Q4H PRN PRN Reason: sinus congestion Last Admin: 08/06/23 14:22 Dose: 30 mg Trazodone HCl (Trazodone Hcl 50 Mg Tablet) 50 mg PO BEDTIME MRX1 PRN PRN Reason: Insomnia Last Admin: 08/10/23 01:13 Dose: 50 mg Trolamine Salicylate (Trolamine Salicylate 10 % Cream 85 Gm Tube) 1 appl TOPICAL BID GLENN; Protocol Last Admin: 08/10/23 08:42 Dose: 1 appl Allergies Allergies Allergy/AdvReac Type Severity Reaction Status Date / Time Penicillins Allergy Unknown Unknown Verified 05/03/23 22:31 Assessment & Plan Assessment & Plan (1) Schizoaffective disorder, bipolar type: Status: Acute Code(s): F25.0 - Schizoaffective disorder, bipolar type Assessment and Plan: 07/30/23 Continue current plan of care Plan Pt is a 63-year-old female with a PMH significant for?COPD, 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 Patient apparently wandered into a vanc stating she was cold, and screaming that her legs, arms, and pelvis were broken. Medical consult for admission H&P. Mood disorder Plan as per psychiatry COPD Not in acute exacerbation Not on home inhalers Plan 1. Gather collateral information. 2. Start Zyprexa 2.5 p.o. q.h.s. on July 30. We are increasing up to 5 mg at night on July 31. Encouragement for compliance was advised. We are increasing Zyprexa to 10 mg p.o. q.h.s. on August 03 3. The patient is concerned regarding placement and we will discuss her options pretty soon as soon as we can find out her financial situation. 4. The patient remains grossly psychotic so we are increasing her Zyprexa to 15 mg p.o. q.h.s. on August 07. We are going to keep it for few days and reassess if we need to increase up to 20 mg HS Reason for continued inpatient stay Substantial Risk for: inability to function, rapid decompensation and med/psych decompensation Time Spent With Patient Time: Total time managing care of this patient today _20___ minutes.
[2023-08-11 08:00] VITALS: BP 135/67; PULSE 79; RESP 18; TEMP 36.4; O2SAT 96
[2023-08-11] MEDS: Trolamine Salicylate 10 % Cream 85 GM TUBE 1 APPL TOPICAL (08:46)
[2023-08-11 09:07] VITALS: BMI 29.1
--- NOTE | 2023-08-11 14:08 | HO.PSYCHPN ---
Subjective Subjective Date of Service: 08/11/23 Reason For Visit: Schizoaffective disorder, bipolar type Subjective Notes: Conditional Voluntary Interim History: The nursing staff reported the patient had been agitated and refused her medications. On interview I explained her that she needs to be compliant in order to be ECT place her paranoia she remains chronically psychotic. Mental Status Exam Mental Status Exam Patient Appearance: Appropriate Patient Orientation: Person and Situation Level of Consciousness: Awake and Appropriate Patient Behavior: Guarded and Passive Mood Description: Withdrawn Affect Description: Constricted Patient Cognition Impaired: Yes Ability to Follow Directions: Good Speech Pattern: Clear Hallucinations: None Delusions: Paranoid Ideation and Ideas of Reference Thought Process: Distracted and Slowed Thinking Thought Content: positive for [place] and positive for Poverty of Content Judgement: Fair Diagnostics Vital Signs (24Hr): Vital Signs - 24 hr 08/11/23 08:00 Temperature 97.5 F Pulse Rate 79 Respiratory Rate 18 Blood Pressure 135/67 Pulse Oximetry 96 Oxygen Delivery Method Room Air BMI result Body Mass Index 29.1 Labs 07/29/23 06:49 Medications Medications Current Medications Acetaminophen (Acetaminophen 325 Mg Tablet) 650 mg PO Q6H PRN PRN Reason: Headache/Pain Mild Scale (1-3) Last Admin: 08/02/23 20:58 Dose: 650 mg Al Hydroxide/Mg Hydroxide (Magnesium Hydrox/Alum Hydrox 30 Ml Oral.Susp) 30 ml PO Q6H PRN PRN Reason: Heartburn/Nausea Hydroxyzine HCl (Hydroxyzine Hcl 25 Mg Tablet) 25 mg PO Q6H PRN PRN Reason: Anxiety Last Admin: 08/10/23 03:18 Dose: 25 mg Ibuprofen (Ibuprofen 600 Mg Tablet) 600 mg PO Q6H PRN PRN Reason: Pain, Moderate(Pain Scale 4-6) Last Admin: 08/07/23 01:47 Dose: 600 mg Lorazepam (Lorazepam 1 Mg Tablet) 1 mg PO Q4H PRN PRN Reason: Anxiety Last Admin: 08/10/23 01:12 Dose: 1 mg Magnesium Hydroxide (Milk Of Magnesia 30 Ml Oral.Susp) 30 ml PO DAILY PRN PRN Reason: Constipation Nicotine (Nicotine 14 Mg Patch.Td24) 14 mg TRANSDERMA DAILY [facility] Last Admin: 08/11/23 08:44 Dose: Not Given Nicotine Polacrilex (Nicotine Polacrilex 2 Mg Gum) 4 mg BUCCAL Q2H PRN PRN Reason: Nicotine Cravings Olanzapine (Olanzapine 5 Mg Tablet) 5 mg PO Q4H PRN PRN Reason: Psychosis Last Admin: 08/10/23 03:18 Dose: 5 mg Olanzapine (Olanzapine 7.5 Mg Tablet) 15 mg PO BEDTIME GLENN Last Admin: 08/10/23 22:44 Dose: Not Given Polyethylene Glycol (Polyethylene Glycol 3350 17 Gm Powd.Pack) 17 gm PO DAILY PRN PRN Reason: Constipation Pseudoephedrine HCl (Pseudoephedrine Hcl 30 Mg Tablet) 30 mg PO Q4H PRN PRN Reason: sinus congestion Last Admin: 08/06/23 14:22 Dose: 30 mg Trazodone HCl (Trazodone Hcl 50 Mg Tablet) 50 mg PO BEDTIME MRX1 PRN PRN Reason: Insomnia Last Admin: 08/10/23 01:13 Dose: 50 mg Trolamine Salicylate (Trolamine Salicylate 10 % Cream 85 Gm Tube) 1 appl TOPICAL BID GLENN; Protocol Last Admin: 08/11/23 08:46 Dose: 1 appl Allergies Allergies Allergy/AdvReac Type Severity Reaction Status Date / Time Penicillins Allergy Unknown Unknown Verified 05/03/23 22:31 Assessment & Plan Assessment & Plan (1) Schizoaffective disorder, bipolar type: Status: Acute Code(s): F25.0 - Schizoaffective disorder, bipolar type Assessment and Plan: 07/30/23 Continue current plan of care Plan Pt is a 63-year-old female with a PMH significant for?COPD, 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 Patient apparently wandered into a vanc stating she was cold, and screaming that her legs, arms, and pelvis were broken. Medical consult for admission H&P. Mood disorder Plan as per psychiatry COPD Not in acute exacerbation Not on home inhalers Plan 1. Gather collateral information. 2. Start Zyprexa 2.5 p.o. q.h.s. on July 30. We are increasing up to 5 mg at night on July 31. Encouragement for compliance was advised. We are increasing Zyprexa to 10 mg p.o. q.h.s. on August 03 3. The patient is concerned regarding placement and we will discuss her options pretty soon as soon as we can find out her financial situation. 4. The patient remains grossly psychotic so we are increasing her Zyprexa to 15 mg p.o. q.h.s. on August 07. We are going to keep it for few days and reassess if we need to increase up to 20 mg HS Reason for continued inpatient stay Substantial Risk for: inability to function, rapid decompensation and med/psych decompensation Time Spent With Patient Time: Total time managing care of this patient today _20___ minutes.
--- NOTE | 2023-08-12 02:54 | PC.NURSE ---
Three attempts, different time and people, were made to administer HS medication. However, patient resolutely refused her medication. Patient appears to be getting more disorganized and paranoid. Per provider's note, it seems they are aware of her non compliance with medication and they made education attempts during their one to one meeting.
[2023-08-12] MEDS: LORazepam 1 MG TABLET PO (08:30)
[2023-08-12] MEDS: Trolamine Salicylate 10 % Cream 85 GM TUBE 1 APPL TOPICAL ×2 (08:32→20:32)
--- NOTE | 2023-08-12 11:11 | PC.NURSE ---
Increased behaviors at am, pt angry with outbursts, throwing things around. Not able to re-direct. Accepted PRN Lorazepam; med was effective. Will continue to monitor. Pt refused vital signs and nicotine patch.
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
--- NOTE | 2023-08-12 18:52 | PC.NURSE ---
No further behaviors observed.
[2023-08-12 20:00] VITALS: BP 117/59; PULSE 72; RESP 18; TEMP 36.2; O2SAT 95
[2023-08-12] MEDS: OLANZapine 7.5 MG TABLET 15 MG PO (20:31)
[2023-08-12] MEDS: traZODone HCL 50 MG TABLET PO (20:31)
[2023-08-12] MEDS: hydrOXYzine HCL 25 MG TABLET PO (20:32)
[2023-08-13 08:43] VITALS: BP 104/51; PULSE 70; RESP 14; TEMP 36.6; O2SAT 95
[2023-08-13] MEDS: Trolamine Salicylate 10 % Cream 85 GM TUBE 1 APPL TOPICAL ×2 (10:59→21:25)
[2023-08-13 20:00] VITALS: BP 155/58; PULSE 73; RESP 17; TEMP 36.6; O2SAT 97
[2023-08-13] MEDS: OLANZapine 7.5 MG TABLET 15 MG PO (21:23)
[2023-08-13] MEDS: LORazepam 1 MG TABLET PO (21:23)
[2023-08-13] MEDS: hydrOXYzine HCL 25 MG TABLET PO (22:31)
[2023-08-13] MEDS: Pseudoephedrine HCL 30 MG TABLET PO (22:31)
[2023-08-14] MEDS: OLANZapine 5 MG TABLET PO (02:03)
[2023-08-14] MEDS: traZODone HCL 50 MG TABLET PO ×2 (02:03→22:27)
[2023-08-14] MEDS: LORazepam 1 MG TABLET PO (02:04)
[2023-08-14 08:00] VITALS: BP 141/73; PULSE 97; RESP 18; TEMP 36.2; O2SAT 98
[2023-08-14] MEDS: Trolamine Salicylate 10 % Cream 85 GM TUBE 1 APPL TOPICAL ×2 (08:48→22:27)
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
[2023-08-14] MEDS: OLANZapine 10 MG TABLET 20 MG PO (22:27)
[2023-08-14 22:30] VITALS: BP 124/58; PULSE 97; RESP 16; TEMP 36.1; O2SAT 93
[2023-08-15 08:00] VITALS: BP 122/61; PULSE 114; RESP 18; TEMP 36.1; O2SAT 98
[2023-08-15] MEDS: Trolamine Salicylate 10 % Cream 85 GM TUBE 1 APPL TOPICAL ×2 (12:40→21:38)
[2023-08-15 20:00] VITALS: RESP 18
[2023-08-15] MEDS: OLANZapine 10 MG TABLET 20 MG PO (21:37)
[2023-08-16 08:00] VITALS: BP 144/65; PULSE 82; RESP 16; TEMP 36.8; O2SAT 95
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
[2023-08-16] MEDS: Trolamine Salicylate 10 % Cream 85 GM TUBE 1 APPL TOPICAL ×2 (16:21→21:23)
[2023-08-16 20:00] VITALS: BP 125/65; PULSE 118; RESP 18; TEMP 36.4; O2SAT 96
[2023-08-16] MEDS: hydrOXYzine HCL 25 MG TABLET PO (21:22)
[2023-08-16] MEDS: OLANZapine 10 MG TABLET 20 MG PO (21:22)
[2023-08-16] MEDS: traZODone HCL 50 MG TABLET PO (21:22)
[2023-08-17 07:00] VITALS: BMI 29.0
[2023-08-17 08:00] VITALS: BP 156/65; PULSE 105; RESP 18; TEMP 36.4; O2SAT 97
[2023-08-17] MEDS: Trolamine Salicylate 10 % Cream 85 GM TUBE 1 APPL TOPICAL ×2 (08:19→20:50)
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
[2023-08-17 20:00] VITALS: BP 144/64; PULSE 87; RESP 16; TEMP 36.2; O2SAT 95
[2023-08-17] MEDS: OLANZapine 10 MG TABLET 20 MG PO (20:55)
[2023-08-17] MEDS: hydrOXYzine HCL 25 MG TABLET PO (20:55)
[2023-08-17] MEDS: traZODone HCL 50 MG TABLET PO (20:56)
--- NOTE | 2023-08-18 05:15 | PC.NURSE ---
Patient calm and cooperative in the evening, approached this RN and requested a urine test because feeling like coming down with something . call or contact centre team leader provider Maddison Alegre notified, sample collected via clean catch and sent to the lab, results pending.
[2023-08-18 09:13] VITALS: BP 111/56; PULSE 82; RESP 16; TEMP 36.6; O2SAT 93
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
[2023-08-18 20:00] VITALS: BP 126/59; PULSE 89; RESP 18; TEMP 36.3; O2SAT 95
[2023-08-18] MEDS: OLANZapine 10 MG TABLET 20 MG PO (20:14)
[2023-08-18] MEDS: LORazepam 1 MG TABLET PO (20:14)
[2023-08-18] MEDS: hydrOXYzine HCL 25 MG TABLET PO (20:15)
[2023-08-19 08:00] VITALS: BP 131/63; PULSE 90; RESP 18; TEMP 36.2; O2SAT 95
[2023-08-19] MEDS: Trolamine Salicylate 10 % Cream 85 GM TUBE 1 APPL TOPICAL ×2 (08:54→21:36)
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
[2023-08-19] MEDS: hydrOXYzine HCL 25 MG TABLET PO (19:57)
[2023-08-19] MEDS: LORazepam 1 MG TABLET PO (19:57)
[2023-08-19] MEDS: OLANZapine 10 MG TABLET 20 MG PO (19:57)
[2023-08-19 20:00] VITALS: BP 142/67; PULSE 98; RESP 16; TEMP 36.8; O2SAT 96
[2023-08-20 07:58] VITALS: BP 125/66; PULSE 90; RESP 18; TEMP 36.8; O2SAT 96
[2023-08-20] MEDS: Trolamine Salicylate 10 % Cream 85 GM TUBE 1 APPL TOPICAL (08:19)
--- NOTE | 2023-08-20 09:59 | PC.NURSE ---
Final urine culture less than 10,000.
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
[2023-08-20] MEDS: OLANZapine 10 MG TABLET 20 MG PO (21:04)
[2023-08-20 22:39] VITALS: BP 102/47; PULSE 89; RESP 16; TEMP 36.1; O2SAT 94
[2023-08-20 23:26] VITALS: BP 120/74
[2023-08-21] MEDS: traZODone HCL 50 MG TABLET PO ×2 (00:02→21:12)
[2023-08-21] MEDS: LORazepam 1 MG TABLET PO ×2 (00:03→21:11)
[2023-08-21 09:01] VITALS: BP 124/65; PULSE 96; RESP 20; TEMP 36.1; O2SAT 95
[2023-08-21] MEDS: Trolamine Salicylate 10 % Cream 85 GM TUBE 1 APPL TOPICAL ×2 (10:13)
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
[2023-08-21 20:00] VITALS: BP 140/58; PULSE 100; RESP 18; TEMP 36.6; O2SAT 96
[2023-08-21] MEDS: OLANZapine 10 MG TABLET 20 MG PO (21:11)
[2023-08-22] MEDS: traZODone HCL 50 MG TABLET PO ×2 (01:32→21:17)
[2023-08-22] MEDS: LORazepam 1 MG TABLET PO ×2 (01:33→21:17)
[2023-08-22 12:11] VITALS: BP 132/65; PULSE 97; RESP 18; TEMP 36.3; O2SAT 97
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
[2023-08-22 20:00] VITALS: BP 103/60; PULSE 100; RESP 16; TEMP 36.3; O2SAT 96
[2023-08-22] MEDS: OLANZapine 10 MG TABLET 20 MG PO (21:17)
[2023-08-23 09:30] VITALS: BP 127/63; PULSE 108; RESP 16; TEMP 36.7; O2SAT 94
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
[2023-08-23 19:45] VITALS: BP 116/80; PULSE 123; RESP 16; TEMP 36.3; O2SAT 93
[2023-08-23] MEDS: OLANZapine 10 MG TABLET 20 MG PO (20:24)
[2023-08-23] MEDS: LORazepam 1 MG TABLET PO (20:28)
[2023-08-23] MEDS: traZODone HCL 50 MG TABLET PO (20:28)
[2023-08-24 08:00] VITALS: BP 129/60; PULSE 126; RESP 17; O2SAT 94
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
[2023-08-24 20:00] VITALS: BP 122/69; PULSE 97; RESP 18; TEMP 36.4; O2SAT 96
[2023-08-24] MEDS: OLANZapine 10 MG TABLET 20 MG PO (20:41)
[2023-08-24] MEDS: LORazepam 1 MG TABLET PO (20:41)
[2023-08-24] MEDS: traZODone HCL 50 MG TABLET PO (20:41)
[2023-08-25 08:38] VITALS: BP 138/63; PULSE 63; RESP 17; TEMP 36.1; O2SAT 96
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
[2023-08-25 20:00] VITALS: BP 130/58; PULSE 89; RESP 16; TEMP 36.9; O2SAT 93
[2023-08-25] MEDS: traZODone HCL 50 MG TABLET PO (20:59)
[2023-08-25] MEDS: hydrOXYzine HCL 25 MG TABLET PO (20:59)
[2023-08-25] MEDS: OLANZapine 10 MG TABLET 20 MG PO (20:59)
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
[2023-08-26 20:00] VITALS: BP 112/55; PULSE 87; RESP 18; TEMP 36.2; O2SAT 95
[2023-08-26] MEDS: traZODone HCL 50 MG TABLET PO (20:16)
[2023-08-26] MEDS: hydrOXYzine HCL 25 MG TABLET PO (20:16)
[2023-08-26] MEDS: OLANZapine 10 MG TABLET 20 MG PO (20:16)
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
[2023-08-27 20:00] VITALS: BP 131/60; PULSE 105; RESP 16; TEMP 36.6; O2SAT 94
[2023-08-28] MEDS: OLANZapine 10 MG TABLET 20 MG PO ×2 (00:32→20:45)
[2023-08-28] MEDS: traZODone HCL 50 MG TABLET PO ×2 (01:23→20:45)
[2023-08-28] MEDS: LORazepam 1 MG TABLET PO ×3 (01:23→20:45)
[2023-08-28] MEDS: hydrOXYzine HCL 25 MG TABLET PO ×3 (01:23→20:45)
[2023-08-28 08:19] VITALS: BP 115/54; PULSE 101; RESP 16; TEMP 36.3; O2SAT 94
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
[2023-08-28 20:00] VITALS: BP 114/54; PULSE 99; RESP 18; TEMP 36.7; O2SAT 96
[2023-08-29 08:16] VITALS: BP 121/60; PULSE 120; RESP 17; TEMP 36.3; O2SAT 95
[2023-08-29] MEDS: LORazepam 1 MG TABLET PO (08:16)
--- NOTE | 2023-08-29 09:35 | P.DS_ITS ---
DS: Providers Provider Date of Service: 08/29/23 Date of admission: 07/28/23 13:55 Date of discharge: 08/29/23 Primary care physician: Carola Ann MD Consults: 07/28/23 15:45 Consult to Hospitalist Routine Comment: Consulting Provider: Hospitalist Reason For Exam: Direct admission DS: Diagnosis Discharge Diagnosis (1) Schizoaffective disorder, bipolar type: Status: Acute DS: Medications Discharge Medications Home Medications: Home Medications ?Medication ?Instructions ?Recorded ?Confirmed carbamazepine 100 mg 300 mg PO BID 07/28/23 07/28/23 tablet,extended release,12 hr (Tegretol XR) olanzapine 10 mg tablet 10 mg PO QAM 07/28/23 07/28/23 olanzapine 20 mg tablet 20 mg PO BEDTIME 07/28/23 07/28/23 senna leaf extract 176 mg/5 mL 15 ml PO BEDTIME 07/28/23 07/28/23 oral syrup (senna) Mental Status Exam Mental Status Exam Patient Appearance: Well Grooomed and Appropriate Patient Orientation: Person and Situation Level of Consciousness: Awake and Appropriate Patient Behavior: Guarded and Passive Mood Description: Calm Affect Description: Constricted Patient Cognition Impaired: Yes Ability to Follow Directions: Good Speech Pattern: Clear Hallucinations: None Delusions: Ideas of Reference Thought Process: Distracted and Linear Thought Content: positive for [place], positive for [place] and positive for Perseveration Judgement: Poor Data Data Completed and Pending Completed studies during hospitalization [Text1]: 08/17/23 21:30 Urine clean catch Urine Culture - Final DS: Summary Hospital Course Hospital Course: The patient is a 63-year-old female with a past history of schizoaffective disorder bipolar type was admitted into the hospital after she presented to the emergency room with disorganized behavior, psychotic symptoms and passive suicidal ideation. She was assessed by the crisis team and transferring to this facility for psychiatric stabilization. Please see the HPI note for further details. On admission, the patient reported that she had been homeless since she was last discharged last time several months ago. The patient had been on compliant with Zyprexa and other medications and she decompensated. We discussed risks, benefits, side-effects and alternatives and she agreed to restart Zyprexa slowly. It has been titrated up to 20 mg p.o. daily without any side effects. While she was in the unit, she used to sign periodically 3 day notice letters and then rejected. The patient's main problem was her chronic homelessness. Initially, the protective services social worker contact her family and they were not interested on helping her, only tennille fischer, agreed to help her. She was referred in the past 2 H but she refused to engage later. The knees and the primary team had several family meetings, the patient was in agreement to ask for help at [facility] and discharge planning was discussed. But unfortunately, the patient signed a 3 day notice that she wanted to leave as soon as possible, even though, that she is fully aware that we do not have secure housing for her. At the moment of the discharge the patient does not have any safety concerns. Time spent discussing smoking cessation with patient: 3 to 10 minutes Status at Discharge Cognitive/behavioral status at discharge: At baseline Functional status at discharge: independent ambulation Overall status at discharge: patient is back to baseline Time Spent with Patient Time attestation: Total time managing care of this patient today _30___ minutes. Time spent: Less than 30 minutes Discharge Plan Discharge Anticipated Discharge Date/Time: 08/29/23 10:10 Patient Disposition: Assisted Discharge Diagnosis: Schizoaffective disorder bipolar type Referrals: PACT Services: [facility] [Other] - 1 Week (Call [facility] at anytime to schedule an appointment to begin services with PACT) Carola Ann MD [Primary Care Provider] - 1 Week (Appointment request made. Please call or go to office to obtain appointment date as they were unable to provide at time of call. ) Discharge Medications: New hydroxyzine HCl 25 mg Tablet 25 mg PO Q6H PRN (Reason: Anxiety) 30 Days Qty: 60 0RF ibuprofen 600 mg Tablet 600 mg PO Q6H PRN (Reason: Pain, Moderate(Pain Scale 4-6)) 30 Days Qty: 60 0RF olanzapine 20 mg tablet 20 mg PO BEDTIME 30 Days Qty: 30 0RF trazodone 50 mg Tablet 50 mg PO BEDTIME MRX1 PRN (Reason: Insomnia) 30 Days Qty: 30 0RF trolamine salicylate [Aspercreme] 10 % Cream 1 appl topical BID PRN (Reason: moderate, pain) 30 Days Qty: 1 0RF Protocol: Apply to: Apply to: lower back Discontinued carbamazepine [Tegretol XR] 100 mg Tablet Extended Release 12 Hr 300 mg PO BID olanzapine 10 mg Tablet 10 mg PO QAM olanzapine 20 mg Tablet 20 mg PO BEDTIME senna leaf extract [senna] 176 mg/5 mL Syrup 15 ml PO BEDTIME Discharge Orders: Discharge Order (Routine); Ordered 08/29/23 Ordered By: Jonathan Conway Diet: Advance to usual diet Stand Alone Forms: Patient Portal Discharge page Print Language: Welsh Care Plan Goals: Care plan goals achieved Health Concerns: Continue treatment with primary care physician Plan of Treatment: Continue treatment as an outpatient Assessment: The patient is a 63-year-old female with a history of schizoaffective disorder bipolar type was brought into the facility for psychotic symptoms in the context of noncompliance and chronic homelessness. She was initially admitted, treated with Zyprexa 20 mg p.o. q.h.s. with for improvement through her psychotic symptoms. The patient signed a 3 day notice since she wants to leave the hospital even though that she is fully aware that we had been working for proper disposition and permanent housing. The patient has refused all services. Since there were no safety concerns the patient had been discharged to self.
== END 2023-08-29 11:15 | disposition home or self-care (01) | DRG 885 ==
PROVIDERS: Admitting Provider Psychiatry & Neurology Psychiatry; PCP Internal Medicine; Visit Provider Psychiatry & Neurology Psychiatry
DX: F25.0 Schizoaffective disorder, bipolar type (principal); Z59.02 Unsheltered homelessness; J44.9 Chronic obstructive pulmonary disease, unspecified; Z91.148 Patient's other noncompliance with medication regimen for other reason; Z79.899 Other long term (current) drug therapy
CPT/HCPCS: 36415; 80053; 80061; 87086

== ENCOUNTER → 2023-07-28 13:55 | Outpatient (BNV) | payer MEDICARE, SELFPAY | PROVIDERS: Admitting Provider Psychiatry & Neurology Psychiatry; PCP Internal Medicine; Visit Provider Psychiatry & Neurology Psychiatry | DX: F25.0 Schizoaffective disorder, bipolar type (principal) | CPT/HCPCS: 90792; 99231; 99232; 99238 ==

== ENCOUNTER → 2023-07-28 13:55 | Outpatient (BNV) | payer MEDICARE, SELFPAY | PROVIDERS: Admitting Provider Psychiatry & Neurology Psychiatry; PCP Internal Medicine; Visit Provider Student in an Organized Health Care Education/Training Program | DX: Z00.8 Encounter for other general examination (principal) | CPT/HCPCS: 99499 ==

== ENCOUNTER 2023-08-31 15:34 | Inpatient (IN) | payer MEDICARE, SELFPAY ==
[2023-08-31 16:05] VITALS: BP 120/44; PULSE 120; RESP 18; TEMP 36.3; O2SAT 95; BMI 30.6
--- NOTE | 2023-08-31 16:16 | ECG_ITS ---
Test Reason : MED CLEAR Blood Pressure : / mmHG Vent. Rate : 130 BPM Atrial Rate : 130 BPM P-R Int : 136 ms QRS Dur : 076 ms QT Int : 302 ms P-R-T Axes : 069 046 051 degrees QTc Int : 444 ms Sinus tachycardia Otherwise normal ECG No previous ECGs available Referred By: Julia Palafox Electronically Signed By:Dennis Hagan
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
--- NOTE | 2023-08-31 16:35 | MHC.EDTECH ---
PT refused blood draw at this time.
[2023-08-31 16:44] VITALS: BP 120/44; PULSE 120; RESP 18; TEMP 36.3; O2SAT 95
--- NOTE | 2023-08-31 17:04 | PC.NURSE ---
Lab Refusal Patient is refusing labs at this time. Educated patient on the purpose of labs but the patient continued to decline. Will try again. Will continue plan of care.
[2023-08-31] MEDS: OLANZapine 10 MG TABLET PO (17:57)
[2023-08-31 19:55] LABS: Appearance Urine Clear; Color Urine Yellow; Glucose Urine UA Negative (Negative); Leukocyte Esterase Urine Negative (Negative); Nitrite Urine Negative (Negative); PH 5.5 (5.0-9.0); Specific Gravity - Urine 1.015 (1.005-1.025); UMIC TRIGGER UACC YES; Urine Blood Small (1+) (Negative); Urine Ketones Negative (Negative); Urine Protein Negative (Neg-Trace)
[2023-08-31 19:59] LABS: MANUAL DIFF FLAG NO
[2023-08-31 20:06] LABS: Bacteria Urine None Seen (None Seen); Hyaline Casts Urine 0-2 /LPF (0-2); Squamous Epithelial Cell Urine 0-2 /HPF (0-2); WBC Urine 0-5 /HPF (0-5)
[2023-08-31 20:11] LABS: Amphetamine Screen Urine Not Detected (Not Detect); Barbiturates, Urine Not Detected (Not Detect); Benzodiazepines Screen Urine Not Detected (Not Detect); Buprenorphine Scr Not Detected (Not Detect); Cannabinoid Screen Urine Not Detected (Not Detect); Cocaine Screen Urine Not Detected (Not Detect); Fentanyl, urine Not Detected (Not Detect); Methadone Screen, Urine Not Detected (Not Detect); Opiate Screen Urine Not Detected (Not Detect); Oxycodone Screen Urine Not Detected (Not Detect); Phencyclidine Screen Urine Not Detected (Not Detect)
[2023-08-31 20:20] LABS: Basophils Absolute Auto 0.1 X10*3/uL (0.0-0.2); Basophils Percent Auto 0.6 % (0-2); Eosinophils Absolute Auto 0.2 X10*3/uL (0.0-0.4); Eosinophils Percent Auto 2.3 % (0-4); Hematocrit 36.6 % (37.0-47.0); Hemoglobin 11.8 g/dl (12.0-16.0); Imm Gran Abs Auto 0.05 X10*3/uL (0.00-0.03); Imm Gran Pct Auto 0.6 % (0.0-0.4); Lymphocytes Percent Auto 24.2 % (20-40); Mean Corpuscular HGB Conc 32.2 g/dl (31.0-35.0); Mean Corpuscular Hemoglobin 28.3 pg (27.0-33.0); Mean Corpuscular Volume 87.8 fL (80.0-98.0); Mean Platelet Volume 11.5 fL (9.4-12.3); Monocytes Absolute Auto 0.7 X10*3/uL (0.1-1.2); Monocytes Percent Auto 8.5 % (2-11); Neutrophils Absolute Auto 5.3 x10*3/uL (2.0-8.3); Neutrophils Percent Auto 63.8 % (45-73); Platelet Count 193 X10*3/uL (160-400); Red Blood Count 4.17 X10*6/uL (4.20-5.50); Red Cell Distribution Width 14.8 % (11.0-16.0); White Blood Count 8.2 X10*3/uL (4.8-10.8)
[2023-08-31 20:28] LABS: B Type Natriuretic Peptide < 10 pg/mL (<100)
--- NOTE | 2023-08-31 20:29 | MHC.CARE ---
Butter Wrapper placed call to patient's brother José to obtain collateral information. Detailed voicemail with request for return call left.
[2023-08-31 20:31] LABS: Alanine Aminotransferase 43 U/L (0-31); Albumin Level 3.8 g/dL (3.5-5.0); Alkaline Phosphatase 79 U/L (39-117); Anion Gap 16 (12-20); Aspartate Amino Transferase 27 U/L (5-31); Bilirubin Direct 0.1 mg/dL (0.0-0.5); Bilirubin Total 0.4 mg/dL (0.0-1.0); Blood Urea Nitrogen 18 mg/dL (9-16); Carbon Dioxide 22 mmol/L (22-29); Chloride 107 mmol/L (96-108); Creatinine Clr Calc Pharmacy 69.5; Estimated Glomerular Filt Rate > 60; Ethanol < 10 mg/dL; Glucose Random 143 mg/dL (60-115); Magnesium 2.2 mg/dL (1.6-2.6); Potassium 4.2 mmol/L (3.3-5.1); Sodium 141 mmol/L (135-145); Total Protein 6.8 g/dL (6.5-8.0)
[2023-08-31 20:46] LABS: TSH reflex Free T4 5.01 uIU/mL (0.32-4.0)
[2023-08-31] MEDS: OLANZapine 10 MG TABLET 20 MG PO (21:30)
[2023-08-31 22:50] LABS: Free T4 (Free Thyroxine) 0.85 ng/dL (0.71-1.85)
[2023-09-01 01:23] VITALS: BP 114/58; PULSE 117; RESP 17; TEMP 36.7; O2SAT 93
--- NOTE | 2023-09-01 07:22 | PC.NURSE ---
Assumed care of patient at 0645, patient up walking to the bathroom at this time, offering no complaints to this RN. Patient appears to be in no apparent distress, denies pain. Continue plan of care for suzanne-psych bedsearch
[2023-09-01 07:27] VITALS: BP 118/57; PULSE 104; RESP 16; TEMP 36.6; O2SAT 96
[2023-09-01] MEDS: hydrOXYzine HCL 25 MG TABLET PO (10:11)
[2023-09-01 13:37] VITALS: BP 114/60; PULSE 87; RESP 16; TEMP 36.3; O2SAT 97
[2023-09-01 13:45] VITALS: BMI 32.3
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
--- NOTE | 2023-09-01 16:55 | PC.NURSE ---
09/01/23 Pt had a verbal outburst at 1630 towards staff and roommate after staff asked if she wanted her clothes to go in the washer and offered her a shower. Pt was yelling I don't need a shower, what do you think I smell. I am not going to listen to you 28 year olds. Staff was able to move her to the anti room and she calmed down. Pt was moved into the anti room and place on 5 min safety checks.
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
[2023-09-01 20:22] VITALS: RESP 16
[2023-09-01] MEDS: traZODone HCL 50 MG TABLET PO (21:26)
[2023-09-02] MEDS: Ibuprofen 600 MG TABLET PO (04:30)
[2023-09-02 08:00] VITALS: RESP 18
--- NOTE | 2023-09-02 10:48 | P.PNPSI_ITS ---
Subjective Subjective Date of Service: 09/02/23 Reason For Visit: Hannah/psychosis Subjective Notes: Section 12B Interim History: Reviewed with Dr. Chau. keeping to self. irritable. guarded. refusing to answer questions. pt stated, Why are you asking me questions? I don't need anything from you . T/W explained role and if pt needed anything to please let staff know. Medication Compliance: No Attending Groups: No Review of Systems Constitutional: Reports as per HPI Eyes: Reports as per HPI Reports as per HPI Cardiovascular: Reports as per HPI Respiratory: Reports as per HPI Gastrointestinal: Reports as per HPI Genitourinary: Reports as per HPI Musculoskeletal: Reports as per HPI Skin/Breast: Reports as per HPI Reports as per HPI Psychiatric: Reports as per HPI Endocrine: Reports as per HPI Hematologic/Lymphatic: Reports as per HPI Allergic/Immunologic: Reports as per HPI Mental Status Exam Mental Status Exam Narrative: Pt is alert and oriented; behavior is guarded, irritable, dismissive; dressed in casual attire; mood is described as bad ; eye contact appropriate; Speech is normal rate, volume and prosody and not pressured; thought process is organized. pt kept interaction brief. Diagnostics Vital Signs (24Hr): Vital Signs - 24 hr 09/01/23 13:37 09/01/23 20:22 Temperature 97.3 F Pulse Rate 87 Respiratory Rate 16 16 Blood Pressure 114/60 Pulse Oximetry 97 Oxygen Delivery Method Room Air BMI result Body Mass Index 32.3 Labs 08/31/23 19:53 08/31/23 19:53 Labs: Laboratory Results - last 48 hr 08/31/23 08/31/23 19:47 19:53 WBC 8.2 RBC 4.17 L Hgb 11.8 L Hct 36.6 L MCV 87.8 MCH 28.3 MCHC 32.2 RDW 14.8 Plt Count 193 MPV 11.5 Immature Gran % (Auto) 0.6 H Neut % (Auto) 63.8 Lymph % (Auto) 24.2 [place] % (Auto) 8.5 Eos % (Auto) 2.3 Baso % (Auto) 0.6 Lymph # (Auto) 2.0 [place] # (Auto) 0.7 Eos # (Auto) 0.2 Baso # (Auto) 0.1 Abs Immat Gran (auto) 0.05 H Absolute Neuts (auto) 5.3 Absolute Nucleated RBC 0.000 Nucleated RBC % (auto) 0.0 Sodium 141 Potassium 4.2 Chloride 107 Carbon Dioxide 22 Anion Gap 16 BUN 18 H Creatinine 0.80 Estim Creat Clear Calc 69.5 Estimated GFR > 60 Random Glucose 143 H Calcium 9.0 Magnesium 2.2 Total Bilirubin 0.4 Direct Bilirubin 0.1 AST 27 ALT 43 H Alkaline Phosphatase 79 B-Natriuretic Peptide < 10 Total Protein 6.8 Albumin 3.8 TSH 5.01 H Free T4 0.85 Urine Color Yellow Urine Appearance Clear Urine pH 5.5 Ur Specific [place] 1.015 Urine Protein Negative Urine Glucose (UA) Negative Urine Ketones Negative Urine Blood Small (1+) H Urine Nitrite Negative Ur Leukocyte Esterase Negative Urine RBC 3-5 H Urine WBC 0-5 Ur Squamous Epith Cells 0-2 Urine Bacteria None Seen Hyaline Casts 0-2 Urine Opiates Screen Not Detected Ur Buprenorphine Scrn Not Detected Ur Oxycodone Screen Not Detected Urine Methadone Screen Not Detected Urine Fentanyl Screen Not Detected Ur Barbiturates Screen Not Detected Ur Phencyclidine Scrn Not Detected Ur Amphetamines Screen Not Detected U Benzodiazepines Scrn Not Detected Urine Cocaine Screen Not Detected U Marijuana (THC) Screen Not Detected Ethyl Alcohol < 10 Medications Medications Current Medications Acetaminophen (Acetaminophen 325 Mg Tablet) 650 mg PO Q6H PRN PRN Reason: Headache/Pain Mild Scale (1-3) Al Hydroxide/Mg Hydroxide (Magnesium Hydrox/Alum Hydrox 30 Ml Oral.Susp) 30 ml PO Q6H PRN PRN Reason: Heartburn/Nausea Carbamazepine (Carbamazepine Er 100 Mg Tab.Er.12h) 100 mg PO BID [facility] Last Admin: 09/02/23 08:55 Dose: Not Given Hydroxyzine HCl (Hydroxyzine Hcl 25 Mg Tablet) 25 mg PO Q6H PRN PRN Reason: Anxiety Last Admin: 09/01/23 10:11 Dose: 25 mg Ibuprofen (Ibuprofen 600 Mg Tablet) 600 mg PO Q6H PRN PRN Reason: Pain, Moderate(Pain Scale 4-6) Last Admin: 09/02/23 04:30 Dose: 600 mg Magnesium Hydroxide (Milk Of Magnesia 30 Ml Oral.Susp) 30 ml PO DAILY PRN PRN Reason: Constipation Nicotine Polacrilex (Nicotine Polacrilex 2 Mg Gum) 4 mg BUCCAL Q2H PRN PRN Reason: Nicotine Cravings Olanzapine (Olanzapine 10 Mg Tablet) 20 mg PO BEDTIME [facility] Last Admin: 09/01/23 21:28 Dose: Not Given Trazodone HCl (Trazodone Hcl 50 Mg Tablet) 50 mg PO BEDTIME MRX1 PRN PRN Reason: Insomnia Last Admin: 09/01/23 21:26 Dose: 50 mg Trolamine Salicylate (Trolamine Salicylate 10 % Cream 85 Gm Tube) 1 appl TOPICAL BID PRN; Protocol PRN Reason: moderate, pain Allergies Allergies Allergy/AdvReac Type Severity Reaction Status Date / Time Penicillins Allergy Unknown Unknown Verified 08/31/23 16:12 Assessment & Plan Assessment & Plan (1) Bipolar I disorder with hannah: Status: Acute Code(s): F31.10 - Bipolar disorder, current episode manic without psychotic features, unspecified Plan continue zyprexa. add a proper mood stabilizer. tegretol 100 BID started (pt got delirious on VPA and tremulous on lithium). 09/01: keeping to self. irritable. guarded. refusing to answer questions. pt stated, Why are you asking me questions? I don't need anything from you . T/W explained role and if pt needed anything to please let staff know. continue current tx plan. encourage medication compliance. Patient educated on: diagnosis and medication risk/benefits Informed Consent: further education needed Reason for continued inpatient stay Substantial Risk for: med/psych decompensation Time Spent With Patient Time: Total time managing care of this patient today _20___ minutes.
[2023-09-02 19:40] VITALS: RESP 18
[2023-09-03 08:00] VITALS: RESP 18
--- NOTE | 2023-09-03 08:33 | HO.PSYCHPN ---
Subjective Subjective Date of Service: 09/03/23 Reason For Visit: Nakia/psychosis Subjective Notes: Section 12B Interim History: Reviewed with Dr. Chau. keeping to self. labile.refusing medications. pt stated, I'm requesting to be transferred to the [facility] because it would be better for my mental health ; T/W informed patient this would be passed to her primary team. pt stated, I'm choosing to not take medications right now because it is my choice . denies SI. Medication Compliance: No Attending Groups: No Review of Systems Constitutional: Reports as per HPI Eyes: Reports as per HPI Reports as per HPI Cardiovascular: Reports as per HPI Respiratory: Reports as per HPI Gastrointestinal: Reports as per HPI Genitourinary: Reports as per HPI Musculoskeletal: Reports as per HPI Skin/Breast: Reports as per HPI Reports as per HPI Psychiatric: Reports as per HPI Endocrine: Reports as per HPI Hematologic/Lymphatic: Reports as per HPI Allergic/Immunologic: Reports as per HPI Mental Status Exam Mental Status Exam Narrative: Pt is alert and oriented; behavior is guarded; dressed in casual attire; mood is described as bad , labile; eye contact appropriate; Speech is normal rate, volume and prosody and not pressured; thought process is organized. pt kept interaction brief. Diagnostics Vital Signs (24Hr): Vital Signs - 24 hr 09/02/23 19:40 Respiratory Rate 18 BMI result Body Mass Index 32.3 Labs 08/31/23 19:53 08/31/23 19:53 Medications Medications Current Medications Acetaminophen (Acetaminophen 325 Mg Tablet) 650 mg PO Q6H PRN PRN Reason: Headache/Pain Mild Scale (1-3) Al Hydroxide/Mg Hydroxide (Magnesium Hydrox/Alum Hydrox 30 Ml Oral.Susp) 30 ml PO Q6H PRN PRN Reason: Heartburn/Nausea Carbamazepine (Carbamazepine Er 100 Mg Tab.Er.12h) 100 mg PO BID GLENN Last Admin: 09/02/23 23:52 Dose: Not Given Hydroxyzine HCl (Hydroxyzine Hcl 25 Mg Tablet) 25 mg PO Q6H PRN PRN Reason: Anxiety Last Admin: 09/01/23 10:11 Dose: 25 mg Ibuprofen (Ibuprofen 600 Mg Tablet) 600 mg PO Q6H PRN PRN Reason: Pain, Moderate(Pain Scale 4-6) Last Admin: 09/02/23 04:30 Dose: 600 mg Magnesium Hydroxide (Milk Of Magnesia 30 Ml Oral.Susp) 30 ml PO DAILY PRN PRN Reason: Constipation Nicotine Polacrilex (Nicotine Polacrilex 2 Mg Gum) 4 mg BUCCAL Q2H PRN PRN Reason: Nicotine Cravings Olanzapine (Olanzapine 10 Mg Tablet) 20 mg PO BEDTIME GLENN Last Admin: 09/02/23 23:52 Dose: Not Given Trazodone HCl (Trazodone Hcl 50 Mg Tablet) 50 mg PO BEDTIME MRX1 PRN PRN Reason: Insomnia Last Admin: 09/01/23 21:26 Dose: 50 mg Trolamine Salicylate (Trolamine Salicylate 10 % Cream 85 Gm Tube) 1 appl TOPICAL BID PRN; Protocol PRN Reason: moderate, pain Allergies Allergies Allergy/AdvReac Type Severity Reaction Status Date / Time Penicillins Allergy Unknown Unknown Verified 08/31/23 16:12 Assessment & Plan Assessment & Plan (1) Bipolar I disorder with nakia: Status: Acute Code(s): F31.10 - Bipolar disorder, current episode manic without psychotic features, unspecified Plan continue zyprexa. add a proper mood stabilizer. tegretol 100 BID started (pt got delirious on VPA and tremulous on lithium). 09/01: keeping to self. irritable. guarded. refusing to answer questions. pt stated, Why are you asking me questions? I don't need anything from you . T/W explained role and if pt needed anything to please let staff know. continue current tx plan. encourage medication compliance. 09/02: requesting to be transferred to [facility]. refusing medications. Patient educated on: diagnosis and medication risk/benefits Informed Consent: understands and further education needed Reason for continued inpatient stay Substantial Risk for: med/psych decompensation Time Spent With Patient Time: Total time managing care of this patient today _20___ minutes.
[2023-09-03 20:00] VITALS: RESP 16
[2023-09-03] MEDS: hydrOXYzine HCL 25 MG TABLET PO (23:48)
[2023-09-03] MEDS: traZODone HCL 50 MG TABLET PO (23:49)
[2023-09-04 08:00] VITALS: RESP 16
--- NOTE | 2023-09-04 14:33 | P.PNPSI_ITS ---
Subjective Subjective Date of Service: 09/04/23 Reason For Visit: Nakia/psychosis Interim History: calm, and cooperative. i have a lobotomy. i can't see with my eyes, while clearly navigating her way through unfamiliar surroundings. shuffling gait (but not taking neuroleptics). does c/o TD and states outside the hospital she experiences full-body writhing movements and says it makes people not want to know her. proposes she take tegretol instead of neuroleptic, she balks due to lab draws. R/B of tegretol discussed, pt encouraged to take it. agrees to DC olanzapine. pt requesting transfer to [facility] and second opinion from [facility]. Mental Status Exam Mental Status Exam Narrative: Pt is alert and oriented; behavior is guarded; dressed in casual attire; non- labile; eye contact appropriate; Speech is normal rate, volume and prosody and not pressured; thought process is organized, but illogical. Diagnostics Vital Signs (24Hr): Vital Signs - 24 hr 09/03/23 20:00 Respiratory Rate 16 BMI result Body Mass Index 32.3 Labs 08/31/23 19:53 08/31/23 19:53 Medications Medications Current Medications Acetaminophen (Acetaminophen 325 Mg Tablet) 650 mg PO Q6H PRN PRN Reason: Headache/Pain Mild Scale (1-3) Al Hydroxide/Mg Hydroxide (Magnesium Hydrox/Alum Hydrox 30 Ml Oral.Susp) 30 ml PO Q6H PRN PRN Reason: Heartburn/Nausea Carbamazepine (Carbamazepine Er 100 Mg Tab.Er.12h) 100 mg PO BID GLENN Last Admin: 09/04/23 08:25 Dose: Not Given Hydroxyzine HCl (Hydroxyzine Hcl 25 Mg Tablet) 25 mg PO Q6H PRN PRN Reason: Anxiety Last Admin: 09/03/23 23:48 Dose: 25 mg Ibuprofen (Ibuprofen 600 Mg Tablet) 600 mg PO Q6H PRN PRN Reason: Pain, Moderate(Pain Scale 4-6) Last Admin: 09/02/23 04:30 Dose: 600 mg Magnesium Hydroxide (Milk Of Magnesia 30 Ml Oral.Susp) 30 ml PO DAILY PRN PRN Reason: Constipation Nicotine Polacrilex (Nicotine Polacrilex 2 Mg Gum) 4 mg BUCCAL Q2H PRN PRN Reason: Nicotine Cravings Trazodone HCl (Trazodone Hcl 50 Mg Tablet) 50 mg PO BEDTIME MRX1 PRN PRN Reason: Insomnia Last Admin: 09/03/23 23:49 Dose: 50 mg Trolamine Salicylate (Trolamine Salicylate 10 % Cream 85 Gm Tube) 1 appl TOPICAL BID PRN; Protocol PRN Reason: moderate, pain Allergies Allergies Allergy/AdvReac Type Severity Reaction Status Date / Time Penicillins Allergy Unknown Unknown Verified 08/31/23 16:12 Assessment & Plan Assessment & Plan (1) Bipolar I disorder with nakia: Status: Acute Code(s): F31.10 - Bipolar disorder, current episode manic without psychotic features, unspecified Plan continue zyprexa. add a proper mood stabilizer. tegretol 100 BID started (pt got delirious on VPA and tremulous on lithium). 09/01: keeping to self. irritable. guarded. refusing to answer questions. pt stated, Why are you asking me questions? I don't need anything from you . T/W explained role and if pt needed anything to please let staff know. continue current tx plan. encourage medication compliance. 09/02: requesting to be transferred to [facility]. refusing medications. 09/03: refusing meds. encouraged to take mood stabilizer in exchange for DC of neuroleptic (pt had been c/o TD). asking for transfer to [facility], will discuss with [facility]. Reason for continued inpatient stay Substantial Risk for: harm to self and inability to function Time Spent With Patient Time: Total time managing care of this patient today _35___ minutes.
[2023-09-04] MEDS: Ibuprofen 600 MG TABLET PO (19:26)
[2023-09-04 20:00] VITALS: RESP 16
[2023-09-04] MEDS: traZODone HCL 50 MG TABLET PO (20:43)
[2023-09-04] MEDS: hydrOXYzine HCL 25 MG TABLET PO (20:44)
[2023-09-04] MEDS: Nicotine Polacrilex 2 MG GUM 4 MG BUCCAL (22:07)
[2023-09-05] MEDS: Trolamine Salicylate 10 % Cream 85 GM TUBE 1 APPL TOPICAL (11:35)
--- NOTE | 2023-09-05 15:55 | HO.PSYCHPN ---
Subjective Subjective Date of Service: 09/05/23 Reason For Visit: Nakia/psychosis Interim History: pt lying in bed, eyes open briefly as MD approaches. pt then shuts eyes and does not respond to MD's engagement attempts. seen later in the day ambulating the unit, very hesitantly. per staff, less labile. overly bright. somatic complaints. B/L LE edema. refusing meds. slept about 5 hours. Mental Status Exam Mental Status Exam Narrative: Pt is awake but feigning sleep. does not respond to MD's attempts to engage. lying in her bed adequately dressed. Diagnostics Vital Signs (24Hr): Vital Signs - 24 hr 09/04/23 20:00 Respiratory Rate 16 BMI result Body Mass Index 32.3 Labs 08/31/23 19:53 08/31/23 19:53 Medications Medications Current Medications Acetaminophen (Acetaminophen 325 Mg Tablet) 650 mg PO Q6H PRN PRN Reason: Headache/Pain Mild Scale (1-3) Al Hydroxide/Mg Hydroxide (Magnesium Hydrox/Alum Hydrox 30 Ml Oral.Susp) 30 ml PO Q6H PRN PRN Reason: Heartburn/Nausea Carbamazepine (Carbamazepine Er 100 Mg Tab.Er.12h) 100 mg PO BID GLENN Last Admin: 09/05/23 08:35 Dose: Not Given Hydroxyzine HCl (Hydroxyzine Hcl 25 Mg Tablet) 25 mg PO Q6H PRN PRN Reason: Anxiety Last Admin: 09/04/23 20:44 Dose: 25 mg Ibuprofen (Ibuprofen 600 Mg Tablet) 600 mg PO Q6H PRN PRN Reason: Pain, Moderate(Pain Scale 4-6) Last Admin: 09/04/23 19:26 Dose: 600 mg Magnesium Hydroxide (Milk Of Magnesia 30 Ml Oral.Susp) 30 ml PO DAILY PRN PRN Reason: Constipation Nicotine Polacrilex (Nicotine Polacrilex 2 Mg Gum) 4 mg BUCCAL Q2H PRN PRN Reason: Nicotine Cravings Last Admin: 09/04/23 22:07 Dose: 4 mg Trazodone HCl (Trazodone Hcl 50 Mg Tablet) 50 mg PO BEDTIME MRX1 PRN PRN Reason: Insomnia Last Admin: 09/04/23 20:43 Dose: 50 mg Trolamine Salicylate (Trolamine Salicylate 10 % Cream 85 Gm Tube) 1 appl TOPICAL QID PRN; Protocol PRN Reason: back pain Last Admin: 09/05/23 11:35 Dose: 1 appl Allergies Allergies Allergy/AdvReac Type Severity Reaction Status Date / Time Penicillins Allergy Unknown Unknown Verified 08/31/23 16:12 Assessment & Plan Assessment & Plan (1) Bipolar I disorder with nakia: Status: Acute Code(s): F31.10 - Bipolar disorder, current episode manic without psychotic features, unspecified Plan continue zyprexa. add a proper mood stabilizer. tegretol 100 BID started (pt got delirious on VPA and tremulous on lithium). 09/01: keeping to self. irritable. guarded. refusing to answer questions. pt stated, Why are you asking me questions? I don't need anything from you . T/W explained role and if pt needed anything to please let staff know. continue current tx plan. encourage medication compliance. 09/02: requesting to be transferred to [facility]. refusing medications. 09/03: refusing meds. encouraged to take mood stabilizer in exchange for DC of neuroleptic (pt had been c/o TD). asking for transfer to [facility], will discuss with [facility]. 09/04: case d/w [facility], who feels that pt's Tx will not be essentially different there and declines transfer. 12b up tomorrow. will plan to discharge, as pt does not appear dangerous. Reason for continued inpatient stay Substantial Risk for: harm to self and inability to function Time Spent With Patient Time: Total time managing care of this patient today ____ minutes.
[2023-09-05 20:00] VITALS: RESP 16
[2023-09-06 07:36] VITALS: BP 132/68; PULSE 96; RESP 14; TEMP 35.6; O2SAT 97
[2023-09-06] MEDS: carBAMazepine ER 100 MG TAB.ER.12H PO ×2 (10:14→21:33)
[2023-09-06] MEDS: Throat Lozenge, Medicated LOZENGE 1 LOZENGE MUCOUS MEM ×2 (13:07→23:56)
[2023-09-06] MEDS: Trolamine Salicylate 10 % Cream 85 GM TUBE 1 APPL TOPICAL ×2 (15:07→20:13)
--- NOTE | 2023-09-06 15:14 | P.PNPSI_ITS ---
Subjective Subjective Date of Service: 09/06/23 Reason For Visit: Nakia/psychosis Interim History: somewhat irritable, seen with KEILY Collado. 12b up today. on being presented with options of discharge to [facility] versus remain in the hospital and receive treatment, pt ultimately decides to remain in the hospital and begin to take tegretol. she signs a CV. per staff, 12b up today. denies dep/anx. agitated, labile, refusing meds, not attending groups. slept about 7 hours. Mental Status Exam Mental Status Exam Narrative: Pt is alert and oriented; behavior is guarded; dressed in casual attire; min- labile; eye contact appropriate; Speech is normal rate, volume and prosody and not pressured; thought process is organized, but illogical. Diagnostics Vital Signs (24Hr): Vital Signs - 24 hr 09/05/23 20:00 09/06/23 07:36 Temperature 96.0 F L Pulse Rate 96 Respiratory Rate 16 14 Blood Pressure 132/68 Pulse Oximetry 97 Oxygen Delivery Method Room Air BMI result Body Mass Index 32.3 Labs 08/31/23 19:53 08/31/23 19:53 Medications Medications Current Medications Acetaminophen (Acetaminophen 325 Mg Tablet) 650 mg PO Q6H PRN PRN Reason: Headache/Pain Mild Scale (1-3) Al Hydroxide/Mg Hydroxide (Magnesium Hydrox/Alum Hydrox 30 Ml Oral.Susp) 30 ml PO Q6H PRN PRN Reason: Heartburn/Nausea Benzocaine (Throat Lozenge, Medicated Lozenge) 1 lozenge MUCOUS MEM Q1H PRN PRN Reason: Sore Throat Last Admin: 09/06/23 13:07 Dose: 1 lozenge Carbamazepine (Carbamazepine Er 100 Mg Tab.Er.12h) 100 mg PO BID GLENN Last Admin: 09/06/23 10:14 Dose: 100 mg Guaifenesin/Dextromethorphan (Guaifenesin Dm 100/10/5 Ml 5 Ml Syrup) 5 ml PO Q6H PRN PRN Reason: cough Hydroxyzine HCl (Hydroxyzine Hcl 25 Mg Tablet) 25 mg PO Q6H PRN PRN Reason: Anxiety Last Admin: 09/04/23 20:44 Dose: 25 mg Ibuprofen (Ibuprofen 600 Mg Tablet) 600 mg PO Q6H PRN PRN Reason: Pain, Moderate(Pain Scale 4-6) Last Admin: 09/04/23 19:26 Dose: 600 mg Magnesium Hydroxide (Milk Of Magnesia 30 Ml Oral.Susp) 30 ml PO DAILY PRN PRN Reason: Constipation Nicotine Polacrilex (Nicotine Polacrilex 2 Mg Gum) 4 mg BUCCAL Q2H PRN PRN Reason: Nicotine Cravings Last Admin: 09/04/23 22:07 Dose: 4 mg Trazodone HCl (Trazodone Hcl 50 Mg Tablet) 50 mg PO BEDTIME MRX1 PRN PRN Reason: Insomnia Last Admin: 09/04/23 20:43 Dose: 50 mg Trolamine Salicylate (Trolamine Salicylate 10 % Cream 85 Gm Tube) 1 appl TOPICAL QID PRN; Protocol PRN Reason: back pain Last Admin: 09/06/23 15:07 Dose: 1 appl Allergies Allergies Allergy/AdvReac Type Severity Reaction Status Date / Time Penicillins Allergy Unknown Unknown Verified 08/31/23 16:12 Assessment & Plan Assessment & Plan (1) Bipolar I disorder with nakia: Status: Acute Code(s): F31.10 - Bipolar disorder, current episode manic without psychotic features, unspecified Plan continue zyprexa. add a proper mood stabilizer. tegretol 100 BID started (pt got delirious on VPA and tremulous on lithium). 09/01: keeping to self. irritable. guarded. refusing to answer questions. pt stated, Why are you asking me questions? I don't need anything from you . T/W explained role and if pt needed anything to please let staff know. continue current tx plan. encourage medication compliance. 09/02: requesting to be transferred to [facility]. refusing medications. 09/03: refusing meds. encouraged to take mood stabilizer in exchange for DC of neuroleptic (pt had been c/o TD). asking for transfer to [facility], will discuss with [facility]. 09/04: case d/w [facility], who feels that pt's Tx will not be essentially different there and declines transfer. 12b up tomorrow. will plan to discharge, as pt does not appear dangerous. 09/05: pt signs CV rather than discharge to [facility]. agrees to start tegretol 100 BID. Reason for continued inpatient stay Substantial Risk for: inability to function and rapid decompensation Time Spent With Patient Time: Total time managing care of this patient today __35__ minutes.
[2023-09-06] MEDS: Nicotine Polacrilex 2 MG GUM 4 MG BUCCAL (19:01)
[2023-09-06 19:52] VITALS: PULSE 108; RESP 18; TEMP 36.9; O2SAT 94
[2023-09-07 07:00] VITALS: BMI 31.5
[2023-09-07 07:37] VITALS: BP 131/71; PULSE 101; RESP 14; TEMP 36.6; O2SAT 98
[2023-09-07] MEDS: carBAMazepine ER 100 MG TAB.ER.12H PO (08:25)
[2023-09-07] MEDS: guaiFENesin DM 100/10/5 ML 5 ML SYRUP PO ×2 (08:25→16:27)
--- NOTE | 2023-09-07 13:29 | HO.PSYCHPN ---
Subjective Subjective Date of Service: 09/07/23 Reason For Visit: Nakia/psychosis Interim History: calm, cooperative. some singh. seen with KEILY Collado. does not resist suggestion to increase tegretol dosing. seems more reasonable than past couple of days. per staff, +anx/dep. visible. +meds. my arms are broken. slept 7 hours. Mental Status Exam Mental Status Exam Narrative: Pt is alert and oriented; behavior is guarded; dressed in casual attire; non-labile; eye contact appropriate; Speech is normal rate, volume and prosody and not pressured; thought process is organized, but illogical. mood not assessed. no SI/SIBI/HI/AVH expressed. Diagnostics Vital Signs (24Hr): Vital Signs - 24 hr 09/06/23 19:52 09/07/23 07:37 Temperature 98.4 F 97.9 F Pulse Rate 108 H 101 H Respiratory Rate 18 14 Blood Pressure 131/71 Pulse Oximetry 94 98 Oxygen Delivery Method Room Air Room Air BMI result Body Mass Index 32.3 Labs 08/31/23 19:53 08/31/23 19:53 Medications Medications Current Medications Acetaminophen (Acetaminophen 325 Mg Tablet) 650 mg PO Q6H PRN PRN Reason: Headache/Pain Mild Scale (1-3) Al Hydroxide/Mg Hydroxide (Magnesium Hydrox/Alum Hydrox 30 Ml Oral.Susp) 30 ml PO Q6H PRN PRN Reason: Heartburn/Nausea Benzocaine (Throat Lozenge, Medicated Lozenge) 1 lozenge MUCOUS MEM Q1H PRN PRN Reason: Sore Throat Last Admin: 09/06/23 23:56 Dose: 1 lozenge Carbamazepine (Carbamazepine Er 100 Mg Tab.Er.12h) 100 mg PO BID GLENN Last Admin: 09/07/23 08:25 Dose: 100 mg Guaifenesin/Dextromethorphan (Guaifenesin Dm 100/10/5 Ml 5 Ml Syrup) 5 ml PO Q6H PRN PRN Reason: cough Last Admin: 09/07/23 08:25 Dose: 5 ml Hydroxyzine HCl (Hydroxyzine Hcl 25 Mg Tablet) 25 mg PO Q6H PRN PRN Reason: Anxiety Last Admin: 09/04/23 20:44 Dose: 25 mg Ibuprofen (Ibuprofen 600 Mg Tablet) 600 mg PO Q6H PRN PRN Reason: Pain, Moderate(Pain Scale 4-6) Last Admin: 09/04/23 19:26 Dose: 600 mg Magnesium Hydroxide (Milk Of Magnesia 30 Ml Oral.Susp) 30 ml PO DAILY PRN PRN Reason: Constipation Nicotine Polacrilex (Nicotine Polacrilex 2 Mg Gum) 4 mg BUCCAL Q2H PRN PRN Reason: Nicotine Cravings Last Admin: 09/06/23 19:01 Dose: 4 mg Trazodone HCl (Trazodone Hcl 50 Mg Tablet) 50 mg PO BEDTIME MRX1 PRN PRN Reason: Insomnia Last Admin: 09/04/23 20:43 Dose: 50 mg Trolamine Salicylate (Trolamine Salicylate 10 % Cream 85 Gm Tube) 1 appl TOPICAL QID PRN; Protocol PRN Reason: back pain Last Admin: 09/06/23 20:13 Dose: 1 appl Allergies Allergies Allergy/AdvReac Type Severity Reaction Status Date / Time Penicillins Allergy Unknown Unknown Verified 08/31/23 16:12 Assessment & Plan Assessment & Plan (1) Bipolar I disorder with nakia: Status: Acute Code(s): F31.10 - Bipolar disorder, current episode manic without psychotic features, unspecified Plan continue zyprexa. add a proper mood stabilizer. tegretol 100 BID started (pt got delirious on VPA and tremulous on lithium). 09/01: keeping to self. irritable. guarded. refusing to answer questions. pt stated, Why are you asking me questions? I don't need anything from you . T/W explained role and if pt needed anything to please let staff know. continue current tx plan. encourage medication compliance. 09/02: requesting to be transferred to [facility]. refusing medications. 09/03: refusing meds. encouraged to take mood stabilizer in exchange for DC of neuroleptic (pt had been c/o TD). asking for transfer to [facility], will discuss with [facility]. 09/04: case d/w [facility], who feels that pt's Tx will not be essentially different there and declines transfer. 12b up tomorrow. will plan to discharge, as pt does not appear dangerous. 09/05: pt signs CV rather than discharge to [facility]. agrees to start tegretol 100 BID. 09/06: increase tegretol to 200 BID. remains irritable and with bizarre affect, but denies s/e. Reason for continued inpatient stay Substantial Risk for: inability to function and rapid decompensation Time Spent With Patient Time: Total time managing care of this patient today __25__ minutes.
[2023-09-07] MEDS: Trolamine Salicylate 10 % Cream 85 GM TUBE 1 APPL TOPICAL (16:27)
[2023-09-07] MEDS: Nicotine Polacrilex 2 MG GUM 4 MG BUCCAL (17:33)
[2023-09-07 19:51] VITALS: BP 132/76; PULSE 98; RESP 18; TEMP 36.2; O2SAT 97
[2023-09-07] MEDS: Throat Lozenge, Medicated LOZENGE 1 LOZENGE MUCOUS MEM (22:24)
[2023-09-08] MEDS: Trolamine Salicylate 10 % Cream 85 GM TUBE 1 APPL TOPICAL (06:52)
[2023-09-08 07:39] VITALS: BP 138/66; PULSE 93; RESP 16; TEMP 36.5; O2SAT 98
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
== END 2023-09-08 11:39 | disposition home or self-care (01) | DRG 885 ==
LOC: HO.ED 16:49 → HO.PADLT16 09-01 13:19
PROVIDERS: Admitting Provider Psychiatry & Neurology Psychiatry; Emergency Provider Emergency Medicine; Visit Provider Psychiatry & Neurology Psychiatry
DX: F31.10 Bipolar disorder, current episode manic without psychotic features, unspecified (principal); R45.850 Homicidal ideations; Z91.148 Patient's other noncompliance with medication regimen for other reason; Z79.899 Other long term (current) drug therapy
CPT/HCPCS: 36415; 80048; 80076; 80307; 81001; 83735; 83880; 84439; 84443; 85025; 93005; 99285; S9485

== ENCOUNTER → 2023-08-31 16:16 | Outpatient (BNV) | payer MEDICARE, SELFPAY | PROVIDERS: Admitting Provider Psychiatry & Neurology Psychiatry; Emergency Provider Emergency Medicine; Visit Provider Internal Medicine Cardiovascular Disease | DX: I47.11 Inappropriate sinus tachycardia, so stated (principal) | CPT/HCPCS: 93010 ==

== ENCOUNTER → 2023-09-01 13:07 | Outpatient (BNV) | payer MEDICARE, SELFPAY | PROVIDERS: Admitting Provider Psychiatry & Neurology Psychiatry; Emergency Provider Emergency Medicine; Visit Provider Psychiatry & Neurology Psychiatry | DX: F31.10 Bipolar disorder, current episode manic without psychotic features, unspecified (principal) | CPT/HCPCS: 90792; 99231; 99232; 99239 ==